=== PATIENT | female | born 1985 | race Caucasian/White ===

== ENCOUNTER 2016-07-23 03:35 | Emergency (ER) | payer MEDICARE, OTHER ==
[~2016-07-23] VITALS: Ht 162.6 cm; Wt 63.5 kg
[~2016-07-23 03:35] MED LIST: ACYC800T PO; ARIP10TA2 PO; CITA10TA70 PO; CLON1TAB36 PO; CONCERTA; HYDR50TA76 PO; LITH300C PO; LITH300T15 PO; NITR-65 PO; PRD20T PO
[2016-07-23] MEDS ORDERED: ASPIRIN 81 MG CHEW (CHILDREN'S ASA) PO ONE (03:45)
--- NOTE | 2016-07-23 03:54 | ED General ---
General Chief Complaint: General Problems/Pain Stated Complaint: NUMBNESS Source of Information: Patient, EMS History of Present Illness Time Seen by Provider: 03:37 Initial Comments PT ARRIVES VIA EMS FROM HOME PT STATES SHE WAS SMOKING A CIGARETTE AND INHALED AND CIGARETTE HAD A "WEIRD TASTE" AND SUDDENLY SHE FELT "NUMB AND TINGLY ALL OVER AND EVERYTHING FEELS DISTORTED" AND NOW SHE IS HAVING SOME CHEST DISCOMFORT PT STATES IT WAS A NEW PACK--PT'S USUAL CIGARETTES "DECADE RED 100" , AND DENIES THAT IT WAS LACED WITH ANYTHING DENIES DRUG USE NO SHORTNESS OF BREATH NO PALPITATIONS NO DIZZINESS NO MOTOR DEFICITS NO HISTORY OF SIMILAR, BUT HAS EXTENSIVE PSYCH ISSUES--TAKES LATUDA, ZYPREXA AND TRAZODONE. DENIES MISSING DOSES OR TAKING MORE THAN PRESCRIBED PCP: DR. WYNN AT [facility]. "JUST MOVED HERE FROM [place]" --BUT HAS BEEN HERE 8 TIMES SINCE 2010. Allergies and Home Medications Allergies Coded Allergies: Buspirone (Verified Allergy, Severe, HIVES, 09/07/13) risperidone (Verified Allergy, Intermediate, RASH, 09/07/13) Erythromycin Base (Verified Allergy, Unknown, 09/07/13) Home Medications Citalopram Hydrobromide 10 Mg Tablet, 1 EACH PO DAILY, (Reported) Hydroxyzine Hcl 50 Mg Tablet, 1-2 EACH PO QID PRN, (Reported) [place] Carbonate 300 Mg Tablet.sa, 2 EACH PO BID, (Reported) Nitrofurantoin/Nitrofuran Mac 100 Mg Capsule, 1 EACH PO BID, #20 FOR INFECTION Prescribed by: IWLY BARRIENTOS on 10/10/13 0701 Constitutional: see HPI EENTM: no symptoms reported Respiratory: no symptoms reported Cardiovascular: see HPI, chest pain Gastrointestinal: no symptoms reported Genitourinary: no symptoms reported : No LMP: Jul 15, 2016 (NO CONTROL) Musculoskeletal: no symptoms reported Skin: no symptoms reported Psychiatric/Neurological: See HPI, Anxiety, Denies Headache, Numbness, Paresthesia, Tingling, Denies Weakness Hematologic/Lymphatic: No Symptoms Reported Immunological/Allergic: no symptoms reported Past Relgkpy-Mlrxny-Zbcolz Hx Patient Social History Alcohol Use: Occasionally Uses Recreational Drug Use: Yes (THC IN PAST) Smoking Status: Current Everyday Smoker (1 PPD) Type Used: Cigarettes Recent Hopitalizations: No Seasonal Allergies Seasonal Allergies: No Surgeries HX Surgeries: Yes (R HAND SURG; X 1 ) Surgeries: Appendectomy, Section, Orthopedic, Tonsillectomy Respiratory Hx Respiratory Disorders: No Cardiovascular Hx Cardiac Disorders: No Neurological Hx Neurological Disorders: No Reproductive System Hx Reproductive Disorders: No Sexually Transmitted Disease: No Female Reproductive Disorders: Denies, Ovarian Cyst Genitourinary Hx Genitourinary Disorders: No Gastrointestinal Hx Gastrointestinal Disorders: No Musculoskeletal Hx Musculoskeletal Disorders: No Endocrine Hx Endocrine Disorders: No HEENT HX ENT Disorders: No Cancer Hx Cancer: No Psychosocial Hx Psychiatric Problems: Yes Behavioral Health Disorders: ADD/ADHD, Sleep Difficulties, Anxiety, Suicide Attempts, Bipolar, Schizophrenia, Depression Integumentary HX Skin/Integumentary Disorder: No Blood Transfusions Hx Blood Disorders: No Physical Exam Vital Signs Vital Sign - Last 12Hours 07/23/16 03:35 Temp 96.2 Pulse 97 Resp 18 B/P (MAP) 157/104 Pulse Ox 99 O2 Delivery Room Air Capillary Refill : General Appearance: No Apparent Distress, WD/WN, Obese, Other (REEKS OF CIGARETTES) Neck: Full Range of Motion, Normal Inspection, Non Tender, Supple, No Carotid Bruit, No JVD Respiratory: Chest Non Tender, Normal Breath Sounds, No Accessory Muscle Use, No Respiratory Distress Cardiovascular: Regular Rate, Rhythm, No Edema, No JVD, No Murmur, Normal Peripheral Pulses Gastrointestinal: Normal Bowel Sounds, No Organomegaly, No Pulsatile Mass, Non Tender, Soft Back: Normal Inspection, No CVA Tenderness, No Vertebral Tenderness Extremity: Normal Capillary Refill, Normal Inspection, Normal Range of Motion, Non Tender, No Calf Tenderness, No Pedal Edema Neurologic/Psychiatric: Alert, Oriented x3, No Motor/Sensory Deficits, license issuer II- XII Norm as Tested, Other (ANXIOUS) Skin: Normal Color, Warm/Dry, Tattoos/Piercings (TATTOOS) Progress/Results/Core Measures Results/Orders Lab Results Laboratory Tests Test 07/23/16 04:10 07/23/16 04:15 Range/Units White Blood Count 12.8 H 4.3-11.0 10^3/uL Red Blood Count 5.02 4.35-5.85 10^6/uL Hemoglobin 15.0 11.5-16.0 G/DL Hematocrit 44 35-52 % Mean Corpuscular Volume 88 80-99 FL Mean Corpuscular Hemoglobin 30 25-34 PG Mean Corpuscular Hemoglobin Concent 34 32-36 G/DL Red Cell Distribution Width 14.5 10.0-14.5 % Platelet Count 348 130-400 10^3/uL Mean Platelet Volume 10.3 7.4-10.4 FL Neutrophils (%) (Auto) 61 42-75 % Lymphocytes (%) (Auto) 28 12-44 % Monocytes (%) (Auto) 6 0-12 % Eosinophils (%) (Auto) 4 0-10 % Basophils (%) (Auto) 0 0-10 % Neutrophils # (Auto) 7.8 1.8-7.8 X 10^3 Lymphocytes # (Auto) 3.6 1.0-4.0 X 10^3 Monocytes # (Auto) 0.8 0.0-1.0 X 10^3 Eosinophils # (Auto) 0.5 H 0.0-0.3 10^3/uL Basophils # (Auto) 0.0 0.0-0.1 10^3/uL Prothrombin Time 11.9 L 12.2-14.7 SEC INR Comment 0.9 0.8-1.4 Activated Partial Thromboplast Time 24 24-35 SEC Sodium Level 140 135-145 MMOL/L Potassium Level 4.1 3.6-5.0 MMOL/L Chloride Level 107 98-107 MMOL/L Carbon Dioxide Level 21 21-32 MMOL/L Anion Gap 12 5-14 MMOL/L Blood Urea Nitrogen 15 7-18 MG/DL Creatinine 0.69 0.60-1.30 MG/DL Estimat Glomerular Filtration Rate > 60 BUN/Creatinine Ratio 22 Glucose Level 124 H 70-105 MG/DL Calcium Level 8.8 8.5-10.1 MG/DL Total Bilirubin 0.2 0.1-1.0 MG/DL Aspartate Amino Transf (AST/SGOT) 17 5-34 U/L Alanine Aminotransferase (ALT/SGPT) 22 0-55 U/L Alkaline Phosphatase 94 40-136 U/L Total Creatine Kinase 116 29-168 U/L Creatine Kinase MB 1.6 <6.6 NG/ML Troponin I < 0.30 <0.30 NG/ML B-Type Natriuretic Peptide 16.2 <100.0 PG/ML Total Protein 6.8 6.4-8.2 G/DL Albumin 4.0 3.2-4.5 G/DL Amylase Level 42 25-125 U/L Lipase 22 8-78 U/L Serum Alcohol < 10 <10 MG/DL Serum Test, Qualitative NEGATIVE NEGATIVE Urine Opiates Screen NEGATIVE NEGATIVE Urine Oxycodone Screen NEGATIVE NEGATIVE Urine Methadone Screen NEGATIVE NEGATIVE Urine Propoxyphene Screen NEGATIVE NEGATIVE Urine Barbiturates Screen NEGATIVE NEGATIVE Ur Tricyclic Antidepressants Screen NEGATIVE NEGATIVE Urine Phencyclidine Screen NEGATIVE NEGATIVE Urine Amphetamines Screen NEGATIVE NEGATIVE Urine Methamphetamines Screen NEGATIVE NEGATIVE Urine Benzodiazepines Screen NEGATIVE NEGATIVE Urine Cocaine Screen NEGATIVE NEGATIVE Urine Cannabinoids Screen NEGATIVE NEGATIVE My Orders Orders - ILIANAWILY Kamala DO Amylase (07/23/16 03:45) Cbc With Automated Diff (07/23/16 03:45) Comprehensive Metabolic Panel (07/23/16 03:45) Creatine Kinase (07/23/16 03:45) Creatine Kinase Mb (07/23/16 03:45) Lipase (07/23/16 03:45) Partial Thromboplastin Time (07/23/16 03:45) Protime With Inr (07/23/16 03:45) Troponin I (07/23/16 03:45) Chest 1 View, Ap/Pa Only (07/23/16 03:45) Ekg Tracing (07/23/16 03:45) Aspirin Chewable Tablet (Baby Aspirin Ch (07/23/16 03:45) BNP (07/23/16 03:45) Monitor-Rhythm Ecg Trace Only (07/23/16 03:45) Alcohol (07/23/16 03:45) Drug Screen Stat (Urine) (07/23/16 03:45) Hcg,Qualitative Serum (07/23/16 03:45) Medications Given in ED Current Medications Medications Dose Ordered Sig/Emeka Route Start Time Stop Time Status Last Admin Dose Admin Aspirin 324 mg ONCE ONCE PO 07/23/16 03:45 07/23/16 03:48 DC 07/23/16 04:38 324 MG Vital Signs/I&O Vital Sign - Last 12Hours 07/23/16 03:35 Temp 96.2 Pulse 97 Resp 18 B/P (MAP) 157/104 Pulse Ox 99 O2 Delivery Room Air Progress Note : Progress Note UNEVENTFUL ER STAY ECG Initial ECG Impression Time: 03:59 Initial ECG Rate: 83 Initial ECG Rhythm: Normal Sinus Initial ECG Comparisson: Unchanged Diagnostic Imaging Comments CXR--NO ACUTE PROCESS, PENDING RADIOLOGIST REVIEW Reviewed: Reviewed by Me Departure Impression Impression: Primary Impression: GENERALIZED PARESTHESIAS Disposition: HOME, SELF-CARE Condition: Improved Departure-Patient Inst. Referrals: [facility] [place] Patient Instructions: Paresthesias (DC) Add. Discharge Instructions: AVOID CIGARETTES LOTS OF CLEAR LIQUIDS FOLLOW UP WITH [facility] TOMORROW IF SYMPTOMS PERSIST All discharge instructions reviewed with patient and/or family. Voiced understanding. WILY BARRIENTOS DO Jul 23, 2016 03:54
[2016-07-23 04:23] LABS: BASOPHILS % (AUTO) 0 % (0-10); EOSINOPHILS # (AUTO) 0.5 10^3/uL (0.0-0.3); EOSINOPHILS % (AUTO) 4 % (0-10); LYMPHOCYTES # (AUTO) 3.6 X 10^3 (1.0-4.0); LYMPHOCYTES % (AUTO) 28 % (12-44); MEAN CORPUSCULAR HEMOGLOBIN 30 PG (25-34); MEAN CORPUSCULAR HGB CONC 34 G/DL (32-36); MEAN CORPUSCULAR VOLUME 88 FL (80-99); MEAN PLATELET VOLUME 10.3 FL (7.4-10.4); MONOCYTES # (AUTO) 0.8 X 10^3 (0.0-1.0); MONOCYTES % (AUTO) 6 % (0-12); NEUTROPHILS # (AUTO) 7.8 X 10^3 (1.8-7.8); NEUTROPHILS % (AUTO) 61 % (42-75); PLATELET COUNT 348 10^3/uL (130-400); RED BLOOD COUNT 5.02 10^6/uL (4.35-5.85); RED CELL DISTRIBUTION WIDTH 14.5 % (10.0-14.5); WHITE BLOOD COUNT 12.8 10^3/uL (4.3-11.0)
[2016-07-23 04:33] LABS: INR 0.9 (0.8-1.4); PROTHROMBIN TIME PATIENT 11.9 SEC (12.2-14.7)
[2016-07-23 04:44] LABS: ALANINE AMINOTRANSFERASE 22 U/L (0-55); AMYLASE 42 U/L (25-125); ANION GAP 12 MMOL/L (5-14); ASPARTATE AMINO TRANSFERASE 17 U/L (5-34); BILIRUBIN,TOTAL 0.2 MG/DL (0.1-1.0); BLOOD UREA NITROGEN 15 MG/DL (7-18); BUN/CREATININE RATIO 22; CALCIUM 8.8 MG/DL (8.5-10.1); CARBON DIOXIDE 21 MMOL/L (21-32); CHLORIDE 107 MMOL/L (98-107); CREATINE KINASE 116 U/L (29-168); CREATININE SERUM 0.69 MG/DL (0.60-1.30); GFR ESTIMATED > 60; GLUCOSE 124 MG/DL (70-105); LIPASE 22 U/L (8-78); POTASSIUM 4.1 MMOL/L (3.6-5.0); SODIUM 140 MMOL/L (135-145); TOTAL PROTEIN 6.8 G/DL (6.4-8.2)
[2016-07-23 04:51] LABS: TROPONIN I < 0.30 NG/ML (<0.30)
[2016-07-23 04:52] LABS: ALCOHOL < 10 MG/DL (<10)
[2016-07-23 05:09] VITALS: BP 118/65
--- NOTE | 2016-07-23 08:19 | Diagnostic Imaging Report ---
INDICATION: Patient began to feel numb and tingly all over while smoking a cigarette. Everything appeared distorted. FINDINGS: Frontal view of the chest demonstrates the lungs to be clear. The heart, mediastinum, pulmonary vascularity are normal. IMPRESSION: Normal chest. Dictated by: Dictated on workstation # [id number]
--- OUTSIDE RECORDS SUMMARY | 2016-07-26 06:18 | XMS REPORT | Continuity of Care Document ---
Author Author [facility] Organization [facility] Address Unknown Phone Unavailable Care Team Providers Care Wage And Hour Investigator Name Role Phone Michael Kumar PCP [phone] Source Comments Some departments are not documenting in the electronic medical record. If you do not see the information that you expected, contact Release of Information in the Health Information Management department at [phone] for further assistance in locating additional records.[facility] Active Allergies and Adverse Reactions Allergen Noted Date Severity Reactions Comments Buspar 10/19/2013 UNKNOWN Intolerance per pt Erythromycin 10/19/2013 RASH Geodon 02/08/2015 High SEIZURES Risperdal 10/19/2013 RASH Current Medications No known medications Active Problems Problem Noted Date Cannabis use disorder, mild, abuse 10/15/2014 Concussion 06/15/2010 Fall 06/15/2010 Resolved Problems Problem Noted Date Resolved Date Unspecified psychosis 10/12/2014 10/15/2014 Delusion (HCC) 10/12/2014 10/15/2014 Social History Tobacco Use Types Packs/Day Years Used Date Current Every Day Smoker Cigarettes 3 Smokeless Tobacco: Never Used Alcohol Use Drinks/Week oz/Week Comments Yes 54 Cans of 32.4 3 times a week beer Last Filed Vital Signs Vital Sign Reading Time Taken Blood Pressure 151/96 03/10/2016 10:09 PM TEMPLATE MAKER Pulse 101 02/08/2015 2:31 AM CDT Temperature 36.3 C (97.3 F) 03/10/2016 10:09 PM TEMPLATE MAKER Respiratory Rate - - Height 1.626 m (5' 4") 03/10/2016 10:09 PM TEMPLATE MAKER Weight 72.8 kg (160 lb 7.9 oz) 03/10/2016 10:09 PM TEMPLATE MAKER Body Mass Index 27.54 03/10/2016 10:09 PM TEMPLATE MAKER Oxygen Saturation 96% 03/10/2016 10:09 PM TEMPLATE MAKER Plan of Care Health Maintenance Due Date Last Done Comments Physical (Comprehensive) 1992 Exam Pertussis Vaccine 1996 Tetanus Vaccine 2002 Cervical Cancer Screening 2006 Influenza Vaccine 01/01/2017 Results from Last 3 Months Not on file
--- OUTSIDE RECORDS SUMMARY | 2016-07-26 06:19 | XMS REPORT | Continuity of Care Document ---
Author Author [facility] Address Unknown Phone Unavailable Allergies Active Description Code Type Severity Reaction Onset Reported/Identified Relationship to Patient Clinical Status Yes benzoyl peroxide topical Drug Allergy 10/14/2010 Yes lithium Drug Allergy 01/27/2011 Medications Problems Date Dx Coded Attending Type Code Diagnosis Diagnosed By 10/14/2010 368.16 Hallucination Visual 10/14/2010 780.99 Loss Of Pleasure From Usual Activities (anhedonia) 10/14/2010 368.16 Hallucination Visual 10/14/2010 780.99 Loss Of Pleasure From Usual Activities (anhedonia) 10/14/2010 368.16 Hallucination Visual 10/14/2010 780.99 Loss Of Pleasure From Usual Activities (anhedonia) 10/14/2010 368.16 Hallucination Visual 10/14/2010 780.99 Loss Of Pleasure From Usual Activities (anhedonia) 10/14/2010 MORROW CASHERO BUILDING SERVICES ENGINEER, GISSELL N 368.16 Hallucination Visual 10/14/2010 MORROW CASHERO BUILDING SERVICES ENGINEER, GISSELL N 780.99 Loss Of Pleasure From Usual Activities (anhedonia) 10/14/2010 NURIA BUILDING SERVICES ENGINEER, POLI A 368.16 Hallucination Visual 10/14/2010 NURIA BUILDING SERVICES ENGINEER, POLI A 780.99 Loss Of Pleasure From Usual Activities ( anhedonia) 10/14/2010 MORROW CASHERO BUILDING SERVICES ENGINEER, GISSELL N 368.16 Hallucination Visual 10/14/2010 MORROW CASHERO BUILDING SERVICES ENGINEER, GISSELL N 780.99 Loss Of Pleasure From Usual Activities (anhedonia) 10/14/2010 MORROW CASHERO BUILDING SERVICES ENGINEER, GISSELL N 368.16 Hallucination Visual 10/14/2010 MORROW CASHERO BUILDING SERVICES ENGINEER, GISSELL N 780.99 Loss Of Pleasure From Usual Activities (anhedonia) 10/14/2010 SHAWN COKER APRN S 368.16 Hallucination Visual 10/14/2010 SHAWN COKER APRN S 780.99 loss of pleasure from usual activities (anhedonia) 10/27/2010 296.64 Mo Bipolar I Mixed W Psychotic Behavior 10/27/2010 314.01 ADHD COMBINED 10/27/2010 626.0 Absence Of Menstruation 10/27/2010 V58.69 Medication High Risk 10/27/2010 296.64 Mo Bipolar I Mixed W Psychotic Behavior 10/27/2010 314.01 ADHD COMBINED 10/27/2010 626.0 Absence Of Menstruation 10/27/2010 V58.69 Medication High Risk 10/27/2010 296.64 Mo Bipolar I Mixed W Psychotic Behavior 10/27/2010 314.01 ADHD COMBINED 10/27/2010 626.0 Absence Of Menstruation 10/27/2010 V58.69 Medication High Risk 10/27/2010 296.64 Mo Bipolar I Mixed W Psychotic Behavior 10/27/2010 314.01 ADHD COMBINED 10/27/2010 626.0 Absence Of Menstruation 10/27/2010 V58.69 Medication High Risk 10/27/2010 GISSELL GARZA APRN N 296.64 Mo Bipolar I Mixed W Psychotic Behavior 10/27/2010 MORROW GISSELL EMANUEL APRN N 314.01 ADHD COMBINED 10/27/2010 MORROW GISSELL EMANUEL APRN N 626.0 Absence Of Menstruation 10/27/2010 MORROW GISSELL EMANUEL APRN N V58.69 Medication High Risk 10/27/2010 NURIA APRN, POLI A 296.64 Mo Bipolar I Mixed W Psychotic Behavior 10/27/2010 NURIA BUILDING SERVICES ENGINEER, POLI A 314.01 ADHD COMBINED 10/27/2010 NURIA BUILDING SERVICES ENGINEER, POLI A 626.0 Absence Of Menstruation 10/27/2010 NURIA AUGUSTO, POLI A V58.69 Medication High Risk 10/27/2010 MORROW GISSELL EMANUEL APRN N 296.64 Mo Bipolar I Mixed W Psychotic Behavior 10/27/2010 MORROW JIM EMANUEL APRNCY N 314.01 ADHD COMBINED 10/27/2010 MORROW JIM EMANUEL APRNCY N 626.0 Absence Of Menstruation 10/27/2010 MORROW JIM EMANUEL APRNCY N V58.69 Medication High Risk 10/27/2010 MORROW GISSELL EMANUEL APRN N 296.64 Mo Bipolar I Mixed W Psychotic Behavior 10/27/2010 MORROW GISSELL EMANUEL APRN N 314.01 ADHD COMBINED 10/27/2010 GISSELL GARZA APRN N 626.0 Absence Of Menstruation 10/27/2010 GISSELL GARZA APRN N V58.69 Medication High Risk 10/27/2010 SHAWN COKER APRN S 296.64 MO BIPOLAR I MIXED W PSYCHOTIC BEHAVIOR 10/27/2010 SHAWN COKER APRN S 314.01 ADHD COMBINED 10/27/2010 SHAWN COKER APRN S 626.0 ABSENCE OF MENSTRUATION 10/27/2010 SHAWN COKER APRN S V58.69 MEDICATION HIGH RISK 11/06/2010 V72.31 PROPERTY FIELD ADJUSTER EXAM, ROUTINE 11/06/2010 V72.31 PROPERTY FIELD ADJUSTER EXAM, ROUTINE 11/06/2010 V72.31 PROPERTY FIELD ADJUSTER EXAM, ROUTINE 11/06/2010 V72.31 PROPERTY FIELD ADJUSTER EXAM, ROUTINE 11/06/2010 GISSELL GARZA APRN N V72.31 PROPERTY FIELD ADJUSTER EXAM, ROUTINE 11/06/2010 POLI QUIÑONES APRN A V72.31 PROPERTY FIELD ADJUSTER EXAM, ROUTINE 11/06/2010 GISSELL GARZA APRN N V72.31 PROPERTY FIELD ADJUSTER EXAM, ROUTINE 11/06/2010 GISSELL GARZA APRN N V72.31 PROPERTY FIELD ADJUSTER EXAM, ROUTINE 11/06/2010 SHAWN COKER APRN S V72.31 PROPERTY FIELD ADJUSTER EXAM, ROUTINE 11/12/2010 300.02 AN GEN ANXIETY 11/12/2010 300.02 AN GEN ANXIETY 11/12/2010 300.02 AN GEN ANXIETY 11/12/2010 300.02 AN GEN ANXIETY 11/12/2010 GISSELL GARZA APRN N 300.02 AN GEN ANXIETY 11/12/2010 POLI QUIÑONES APRN A 300.02 AN GEN ANXIETY 11/12/2010 GISSELL GARZA APRN N 300.02 AN GEN ANXIETY 11/12/2010 GISSELL GARZA APRN N 300.02 AN GEN ANXIETY 11/12/2010 SHAWN COKER APRN S 300.02 AN GEN ANXIETY 12/04/2010 296.80 Mo Bipolar Nos 12/04/2010 300.00 An Anxiety Unspec 12/04/2010 314.9 Unspecified Hyperkinetic Syndrome Of Childhood 12/04/2010 296.80 Mo Bipolar Nos 12/04/2010 300.00 An Anxiety Unspec 12/04/2010 314.9 Unspecified Hyperkinetic Syndrome Of Childhood 12/04/2010 296.80 Mo Bipolar Nos 12/04/2010 300.00 An Anxiety Unspec 12/04/2010 314.9 Unspecified Hyperkinetic Syndrome Of Childhood 12/04/2010 296.80 Mo Bipolar Nos 12/04/2010 300.00 An Anxiety Unspec 12/04/2010 314.9 Unspecified Hyperkinetic Syndrome Of Childhood 12/04/2010 MORROW JOEJIM VILLARREAL APRNCY N 296.80 Mo Bipolar Nos 12/04/2010 MORROW JOEJIM VILLARREAL APRNCY N 300.00 An Anxiety Unspec 12/04/2010 MORROW JOEGISSELL VILLARREAL APRN N 314.9 Unspecified Hyperkinetic Syndrome Of Childhood 12/04/2010 BALDO QUIÑONES APRNIDI A 296.80 Mo Bipolar Nos 12/04/2010 NURIA CASAS POLI A 300.00 An Anxiety Unspec 12/04/2010 BALDO QUIÑONES APRNIDI A 314.9 Unspecified Hyperkinetic Syndrome Of Childhood 12/04/2010 CRISTHIAN DIAZGISSELL VILLARREAL APRN N 296.80 Mo Bipolar Nos 12/04/2010 MORROW JOEGISSELL VILLARREAL APRN N 300.00 An Anxiety Unspec 12/04/2010 CRISTHIAN DIAZGISSELL VILLARREAL APRN N 314.9 Unspecified Hyperkinetic Syndrome Of Childhood 12/04/2010 CRISTHIAN DIAZPHIL CASAS GISSELL N 296.80 Mo Bipolar Nos 12/04/2010 MORROW JOEGISSELL VILLARREAL APRN N 300.00 An Anxiety Unspec 12/04/2010 MORROW JOEJIM VILLARREAL APRNCY N 314.9 Unspecified Hyperkinetic Syndrome Of Childhood 12/04/2010 SHAWN COKER APRN S 296.80 MO BIPOLAR NOS 12/04/2010 SHAWN COKER APRN S 300.00 AN ANXIETY UNSPEC 12/04/2010 JOHN COKER APRNA S 314.9 UNSPECIFIED HYPERKINETIC SYNDROME OF CHILDHOOD 12/12/2010 296.65 MO BIPOLAR I MIXED PART OR UNSPECIFIED REMISSION 12/12/2010 296.65 MO BIPOLAR I MIXED PART OR UNSPECIFIED REMISSION 12/12/2010 296.65 MO BIPOLAR I MIXED PART OR UNSPECIFIED REMISSION 12/12/2010 296.65 MO BIPOLAR I MIXED PART OR UNSPECIFIED REMISSION 12/12/2010 CRISTHIAN EMANUEL APRLon GISSELL N 296.65 MO BIPOLAR I MIXED PART OR UNSPECIFIED REMISSION 12/12/2010 POLI QUIÑONES APRN A 296.65 MO BIPOLAR I MIXED PART OR UNSPECIFIED REMISSION 12/12/2010 CRISTHIAN EMANUEL APRNJIMCY N 296.65 MO BIPOLAR I MIXED PART OR UNSPECIFIED REMISSION 12/12/2010 CRISTHIAN EMANUEL APRLon GISSELL N 296.65 MO BIPOLAR I MIXED PART OR UNSPECIFIED REMISSION 12/12/2010 SHAWN COKER APRN S 296.65 MO BIPOLAR I MIXED PART OR UNSPECIFIED REMISSION 01/02/2011 311 Mo Depress Nos 01/02/2011 311 Mo Depress Nos 01/02/2011 311 Mo Depress Nos 01/02/2011 311 Mo Depress Nos 01/02/2011 CRISTHIAN DIAZPHIL BUILDING SERVICES ENGINEER, GISSELL N 311 Mo Depress Nos 01/02/2011 POLI QUIÑONES APRN A 311 Mo Depress Nos 01/02/2011 CRISTHIAN DIAZPHIL BUILDING SERVICES ENGINEERGISSELL Forrest N 311 Mo Depress Nos 01/02/2011 CRISTHIAN EMANUEL APRLon GISSELL N 311 Mo Depress Nos 01/02/2011 SHAWN COKER APRN S 311 MO DEPRESS NOS 01/22/2011 V25.49 SURVEILLANCE OF OTHER CONTRACEPTIVE METHOD 01/22/2011 V25.49 SURVEILLANCE OF OTHER CONTRACEPTIVE METHOD 01/22/2011 V25.49 SURVEILLANCE OF OTHER CONTRACEPTIVE METHOD 01/22/2011 V25.49 SURVEILLANCE OF OTHER CONTRACEPTIVE METHOD 01/22/2011 MORROW JOEGISSELL VILLARREAL APRN N V25.49 SURVEILLANCE OF OTHER CONTRACEPTIVE METHOD 01/22/2011 POLI QUIÑONES APRN A V25.49 SURVEILLANCE OF OTHER CONTRACEPTIVE METHOD 01/22/2011 CRISTHIAN DIAZPHIL BUILDING SERVICES ENGINEER, GISSELL N V25.49 SURVEILLANCE OF OTHER CONTRACEPTIVE METHOD 01/22/2011 MORROWMAE DIAZPHIL BUILDING SERVICES ENGINEERGISSELL Forrest N V25.49 SURVEILLANCE OF OTHER CONTRACEPTIVE METHOD 01/22/2011 SHAWN COKER APRN S V25.49 SURVEILLANCE OF OTHER CONTRACEPTIVE METHOD 02/02/2011 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 02/02/2011 375.15 TEAR FILM INSUFFICIENCY UNSPECIFIED 02/02/2011 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 02/02/2011 375.15 TEAR FILM INSUFFICIENCY UNSPECIFIED 02/02/2011 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 02/02/2011 375.15 TEAR FILM INSUFFICIENCY UNSPECIFIED 02/02/2011 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 02/02/2011 375.15 TEAR FILM INSUFFICIENCY UNSPECIFIED 02/02/2011 CRISTHIAN DIAZPHIL BUILDING SERVICES ENGINEER, GISSELL N 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 02/02/2011 CRISTHIAN DIAZPHIL BUILDING SERVICES ENGINEERJIM ForrestCY N 375.15 TEAR FILM INSUFFICIENCY UNSPECIFIED 02/02/2011 NURIALon CASAS POLI A 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 02/02/2011 NURIA APRN, POLI A 375.15 TEAR FILM INSUFFICIENCY UNSPECIFIED 02/02/2011 CRISTHIAN DIAZGISSELL VILLARREAL APRN N 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 02/02/2011 MORROW JOEGISSELL VILLARREAL APRN N 375.15 TEAR FILM INSUFFICIENCY UNSPECIFIED 02/02/2011 CRISTHIAN DIAZPHIL BUILDING SERVICES ENGINEERGISSELL Forrest N 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 02/02/2011 CRISTHIAN DIAZPHIL BUILDING SERVICES ENGINEERGISSELL Forrest N 375.15 TEAR FILM INSUFFICIENCY UNSPECIFIED 02/02/2011 SHAWN COKER APRN S 351.0 DOBBINS'S PALSY 02/02/2011 FOREST COKER APRNNDA S 375.15 TEAR FILM INSUFFICIENCY UNSPECIFIED 02/04/2011 296.90 Mood Disorder Nos 02/04/2011 296.90 Mood Disorder Nos 02/04/2011 296.90 Mood Disorder Nos 02/04/2011 296.90 Mood Disorder Nos 02/04/2011 GISSELL GARZA APRN N 296.90 Mood Disorder Nos 02/04/2011 NURIA CASAS POLI A 296.90 Mood Disorder Nos 02/04/2011 CRISTHIAN DIAZJIM VILLARREAL APRNCY N 296.90 Mood Disorder Nos 02/04/2011 CRISTHIAN EMANUEL APRJIM ForrestCY N 296.90 Mood Disorder Nos 02/04/2011 JOHN COKER APRNA S 296.90 MOOD DISORDER NOS 03/13/2011 701.9 UNSPECIFIED HYPERTROPHIC AND ATROPHIC CONDITIONS OF SKIN 03/13/2011 701.9 UNSPECIFIED HYPERTROPHIC AND ATROPHIC CONDITIONS OF SKIN 03/13/2011 701.9 UNSPECIFIED HYPERTROPHIC AND ATROPHIC CONDITIONS OF SKIN 03/13/2011 701.9 UNSPECIFIED HYPERTROPHIC AND ATROPHIC CONDITIONS OF SKIN 03/13/2011 GISSELL GARZA APRN N 701.9 UNSPECIFIED HYPERTROPHIC AND ATROPHIC CONDITIONS OF SKIN 03/13/2011 POLI QUIÑONES APRN A 701.9 UNSPECIFIED HYPERTROPHIC AND ATROPHIC CONDITIONS OF SKIN 03/13/2011 GISSELL GARZA APRN N 701.9 UNSPECIFIED HYPERTROPHIC AND ATROPHIC CONDITIONS OF SKIN 03/13/2011 MORROW JOEGISSELL VILLARREAL APRN N 701.9 UNSPECIFIED HYPERTROPHIC AND ATROPHIC CONDITIONS OF SKIN 03/13/2011 SHAWN COKER APRN S 701.9 UNSPECIFIED HYPERTROPHIC AND ATROPHIC CONDITIONS OF SKIN 05/13/2011 300.4 MO DYSTHYMIC DISORDER 05/13/2011 300.4 MO DYSTHYMIC DISORDER 05/13/2011 300.4 MO DYSTHYMIC DISORDER 05/13/2011 300.4 MO DYSTHYMIC DISORDER 05/13/2011 GISSELL GARZA APRN N 300.4 MO DYSTHYMIC DISORDER 05/13/2011 POLI QUIÑONES APRN A 300.4 MO DYSTHYMIC DISORDER 05/13/2011 GISSELL GARZA APRN N 300.4 MO DYSTHYMIC DISORDER 05/13/2011 GISSELL GARZA APRN N 300.4 MO DYSTHYMIC DISORDER 05/13/2011 SHAWN COKER APRN 300.4 MO DYSTHYMIC DISORDER 06/15/2011 461.9 Sinusitis Acute 06/15/2011 462 Acute Pharyngitis 06/15/2011 461.9 Sinusitis Acute 06/15/2011 462 Acute Pharyngitis 06/15/2011 461.9 Sinusitis Acute 06/15/2011 462 Acute Pharyngitis 06/15/2011 461.9 Sinusitis Acute 06/15/2011 462 Acute Pharyngitis 06/15/2011 GISSELL GARZA APRN N 461.9 Sinusitis Acute 06/15/2011 GISSELL GARZA APRN N 462 Acute Pharyngitis 06/15/2011 POLI QUIÑONES APRN A 461.9 Sinusitis Acute 06/15/2011 POLI QUIÑONES APRN A 462 Acute Pharyngitis 06/15/2011 GISSELL GARZA APRN N 461.9 Sinusitis Acute 06/15/2011 GISSELL GARZA APRN N 462 Acute Pharyngitis 06/15/2011 GISSELL GARZA APRN N 461.9 Sinusitis Acute 06/15/2011 GISSELL GARZA APRN N 462 Acute Pharyngitis 06/15/2011 SHAWN COKER APRN S 461.9 SINUSITIS ACUTE 06/15/2011 SHAWN COKER APRN S 462 ACUTE PHARYNGITIS 06/17/2011 296.33 Mo Depressive Recurrent Severe W/o Psychotic Behavior 06/17/2011 296.33 Mo Depressive Recurrent Severe W/o Psychotic Behavior 06/17/2011 296.33 Mo Depressive Recurrent Severe W/o Psychotic Behavior 06/17/2011 296.33 Mo Depressive Recurrent Severe W/o Psychotic Behavior 06/17/2011 GISSELL GARZA APRN N 296.33 Mo Depressive Recurrent Severe W /o Psychotic Behavior 06/17/2011 POLI QUIÑONES APRN A 296.33 Mo Depressive Recurrent Severe W/o Psychotic Behavior 06/17/2011 GISSELL GARZA APRN N 296.33 Mo Depressive Recurrent Severe W /o Psychotic Behavior 06/17/2011 GISSELL GARZA APRN N 296.33 Mo Depressive Recurrent Severe W /o Psychotic Behavior 06/17/2011 SHAWN COKER APRN S 296.33 MO DEPRESSIVE RECURRENT SEVERE W/O PSYCHOTIC BEHAVIOR 07/16/2011 296.62 Mo Bipolar I Mixed Moderate 07/16/2011 296.62 Mo Bipolar I Mixed Moderate 07/16/2011 296.62 Mo Bipolar I Mixed Moderate 07/16/2011 296.62 Mo Bipolar I Mixed Moderate 07/16/2011 GISSELL GARZA APRN N 296.62 Mo Bipolar I Mixed Moderate 07/16/2011 NURIA CASAS POLI A 296.62 Mo Bipolar I Mixed Moderate 07/16/2011 GISSELL GARZA APRN N 296.62 Mo Bipolar I Mixed Moderate 07/16/2011 GISSELL GARZA APRN N 296.62 Mo Bipolar I Mixed Moderate 07/16/2011 SHAWN COKER APRN S 296.62 MO BIPOLAR I MIXED MODERATE 08/03/2011 780.39 SEIZURES OTHER 08/03/2011 780.39 convulsions [as sx] 08/03/2011 780.39 convulsions [as sx] 08/03/2011 780.39 convulsions [as sx] 08/03/2011 GISSELL GARZA APRN N 780.39 convulsions [as sx] 08/03/2011 NURIA CASAS POLI A 780.39 convulsions [as sx] 08/03/2011 CRISTHIAN EMANUEL APRNGISSELL N 780.39 convulsions [as sx] 08/03/2011 GISSELL GARZA APRN N 780.39 convulsions [as sx] 08/03/2011 SHAWN COKER APRN S 780.39 SEIZURES OTHER 08/12/2011 296.89 Mo Bipolar Ii 08/12/2011 301.83 PD BORDERLINE 08/12/2011 296.89 Mo Bipolar Ii 08/12/2011 301.83 PD BORDERLINE 08/12/2011 296.89 Mo Bipolar Ii 08/12/2011 301.83 PD BORDERLINE 08/12/2011 296.89 Mo Bipolar Ii 08/12/2011 301.83 PD BORDERLINE 08/12/2011 CRISTHIAN EMANUEL APRNGISSELL N 296.89 Mo Bipolar Ii 08/12/2011 CRISTHIAN EMANUEL APRNJIMCY N 301.83 PD BORDERLINE 08/12/2011 BALDO QUIÑONES APRNIDI A 296.89 Mo Bipolar Ii 08/12/2011 BALDO QUIÑONES APRNIDI A 301.83 PD BORDERLINE 08/12/2011 CRISTHIAN EMANUEL APRNGISSELL N 296.89 Mo Bipolar Ii 08/12/2011 CRISTHIAN DIAZPHIL BUILDING SERVICES ENGINEER, GISSELL N 301.83 PD BORDERLINE 08/12/2011 CRISTHIAN EMANUEL APRLon GISSELL N 296.89 Mo Bipolar Ii 08/12/2011 CRISTHIAN DIAZPHIL BUILDING SERVICES ENGINEER, GISSELL N 301.83 PD BORDERLINE 08/12/2011 SHAWN COKER APRN S 296.89 MO BIPOLAR II 08/12/2011 SHAWN COKER APRN S 301.83 PD BORDERLINE 08/25/2011 301.9 PD PERS DIS NOS 08/25/2011 301.9 PD PERS DIS NOS 08/25/2011 301.9 PD PERS DIS NOS 08/25/2011 301.9 PD PERS DIS NOS 08/25/2011 GISSELL GARZA APRN N 301.9 PD PERS DIS NOS 08/25/2011 NURIA CASAS, POLI A 301.9 PD PERS DIS NOS 08/25/2011 CRISTHIAN DIAZPHIL BUILDING SERVICES ENGINEER, GISSELL N 301.9 PD PERS DIS NOS 08/25/2011 JIM GARZA APRNCY N 301.9 PD PERS DIS NOS 08/25/2011 SHAWN COKER APRN 301.9 PD PERS DIS NOS 01/07/2012 V25.01 Contraception - Oral Contraception 01/07/2012 V72.31 Forgesmith Exam, Routine 01/07/2012 V76.10 Breast Cancer Screening 01/07/2012 V25.01 Contraception - Oral Contraception 01/07/2012 V72.31 Forgesmith Exam, Routine 01/07/2012 V76.10 Breast Cancer Screening 01/07/2012 V25.01 Contraception - Oral Contraception 01/07/2012 V72.31 Forgesmith Exam, Routine 01/07/2012 V76.10 Breast Cancer Screening 01/07/2012 V25.01 Contraception - Oral Contraception 01/07/2012 V72.31 Forgesmith Exam, Routine 01/07/2012 V76.10 Breast Cancer Screening 01/07/2012 MORROW JOEGISSELL VILLARREAL APRN N V25.01 Contraception - Oral Contraception 01/07/2012 MORROW JOEGISSELL VILLARREAL APRN N V72.31 Forgesmith Exam, Routine 01/07/2012 CRISTHIAN EMANUEL BUILDING SERVICES ENGINEERGISSELL Forrest N V76.10 Breast Cancer Screening 01/07/2012 NURIAREDD CASAS, POLI A V25.01 Contraception - Oral Contraception 01/07/2012 NURIA APRN, POLI A V72.31 Forgesmith Exam, Routine 01/07/2012 NURIA BUILDING SERVICES ENGINEER, POLI A V76.10 Breast Cancer Screening 01/07/2012 GISSELL GRAZA APRN N V25.01 Contraception - Oral Contraception 01/07/2012 GISSELL GARZA APRN N V72.31 Forgesmith Exam, Routine 01/07/2012 GISSELL GARZA APRN N V76.10 Breast Cancer Screening 01/07/2012 GISSELL GARZA APRN N V25.01 Contraception - Oral Contraception 01/07/2012 GISSELL GARZA APRN N V72.31 Forgesmith Exam, Routine 01/07/2012 GISSELL GARZA APRN N V76.10 Breast Cancer Screening 01/07/2012 SHAWN COKER APRN V25.01 CONTRACEPTION - ORAL CONTRACEPTION 01/07/2012 SHAWN COKER APRN V72.31 PROPERTY FIELD ADJUSTER EXAM, ROUTINE 01/07/2012 SHAWN COKER APRN V76.10 BREAST CANCER SCREENING 01/19/2012 780.60 Fever Unspecified 01/19/2012 780.79 Fatigue 01/19/2012 780.60 Fever Unspecified 01/19/2012 780.79 Fatigue 01/19/2012 780.60 Fever Unspecified 01/19/2012 780.79 Fatigue 01/19/2012 780.60 Fever Unspecified 01/19/2012 780.79 Fatigue 01/19/2012 GISSELL GARZA APRN N 780.60 Fever Unspecified 01/19/2012 MORROW JOEGISSELL VILLARREAL APRN N 780.79 Fatigue 01/19/2012 POLI QUIÑONES APRN A 780.60 Fever Unspecified 01/19/2012 NURIA CASAS POLI A 780.79 Fatigue 01/19/2012 MORROW JOEGISSELL VILLARREAL APRN N 780.60 Fever Unspecified 01/19/2012 MORROW JOEGISSELL VILLARREAL APRN N 780.79 Fatigue 01/19/2012 MORROW JOEGISSELL VILLARREAL APRN N 780.60 Fever Unspecified 01/19/2012 MORROW JOEGISSELL VILLARREAL APRN N 780.79 Fatigue 01/19/2012 SHAWN COKER APRN 780.60 FEVER UNSPECIFIED 01/19/2012 SHAWN COKER APRN 780.79 fatigue 02/12/2012 V03.82 Ppv23 (pneumovax) Dx 02/12/2012 V06.1 Tdap Dx 02/12/2012 V03.82 Ppv23 (pneumovax) Dx 02/12/2012 V06.1 Tdap Dx 02/12/2012 V03.82 Ppv23 (pneumovax) Dx 02/12/2012 V06.1 Tdap Dx 02/12/2012 V03.82 Ppv23 (pneumovax) Dx 02/12/2012 V06.1 Tdap Dx 02/12/2012 GISSELL GARZA APRN N V03.82 Ppv23 (pneumovax) Dx 02/12/2012 CRISTHIAN EMANUEL APRN, GISSELL N V06.1 Tdap Dx 02/12/2012 NURIA CASAS, POLI A V03.82 Ppv23 (pneumovax) Dx 02/12/2012 NURIA CASAS, POLI A V06.1 Tdap Dx 02/12/2012 CRISTHIAN EMANUEL APRN, GISSELL N V03.82 Ppv23 (pneumovax) Dx 02/12/2012 CRISTHIAN EMANUEL APRN, GISSELL N V06.1 Tdap Dx 02/12/2012 CRISTHIAN EMANUEL APRN, GISSELL N V03.82 Ppv23 (pneumovax) Dx 02/12/2012 CRISTHIAN EMANUEL APRN, GISSELL N V06.1 Tdap Dx 02/12/2012 SHEELASERGEI WILLSONJOHN ForrestA S V03.82 PPV23 (PNEUMOVAX) DX 02/12/2012 SHEELA BUILDING SERVICES ENGINEERJOHN ForrestA S V06.1 TDAP DX 02/12/2012 SHEELA BUILDING SERVICES ENGINEERJOHN ForrestA S 626.9 MENSTRUATION AND OTHER ABNORMAL BLEEDING FROM FEMALE GENITAL TRACT 03/17/2012 465.9 Upper Respiratory Infection 03/17/2012 924.10 Contusion Of Lower Leg 03/17/2012 465.9 Upper Respiratory Infection 03/17/2012 924.10 Contusion Of Lower Leg 03/17/2012 465.9 Upper Respiratory Infection 03/17/2012 924.10 Contusion Of Lower Leg 03/17/2012 465.9 Upper Respiratory Infection 03/17/2012 924.10 Contusion Of Lower Leg 03/17/2012 CRISTHIAN EMANUEL APRJIM ForrestCY N 465.9 Upper Respiratory Infection 03/17/2012 MORROWMAE EMANUEL APRLon GISSELL N 924.10 Contusion Of Lower Leg 03/17/2012 BALDO QUIÑONES APRNIDI A 465.9 Upper Respiratory Infection 03/17/2012 POLI QUIÑONES APRN A 924.10 Contusion Of Lower Leg 03/17/2012 CRISTHIAN EMANUEL APRJIM ForrestCY N 465.9 Upper Respiratory Infection 03/17/2012 CRISTHIAN EMANUEL APRJIM ForrestCY N 924.10 Contusion Of Lower Leg 03/17/2012 CRISTHIAN EMANUEL APRJIM ForrestCY N 465.9 Upper Respiratory Infection 03/17/2012 JIM GARZA APRNCY N 924.10 Contusion Of Lower Leg 03/17/2012 SHAWN COKER APRN S 465.9 UPPER RESPIRATORY INFECTION 03/17/2012 SHAWN COKER APRN S 924.10 CONTUSION OF LOWER LEG 03/17/2012 SHAWN COKER APRN S 626.9 MENSTRUATION AND OTHER ABNORMAL BLEEDING FROM FEMALE GENITAL TRACT 04/06/2012 616.10 VAGINITIS AND VULVOVAGINITIS UNSPECIFIED 04/06/2012 616.10 VAGINITIS AND VULVOVAGINITIS UNSPECIFIED 04/06/2012 616.10 VAGINITIS AND VULVOVAGINITIS UNSPECIFIED 04/06/2012 616.10 VAGINITIS AND VULVOVAGINITIS UNSPECIFIED 04/06/2012 GISSELL GARZA APRN N 616.10 VAGINITIS AND VULVOVAGINITIS UNSPECIFIED 04/06/2012 BALDO QUIÑONES APRNIDI A 616.10 VAGINITIS AND VULVOVAGINITIS UNSPECIFIED 04/06/2012 JIM GARZA APRNCY N 616.10 VAGINITIS AND VULVOVAGINITIS UNSPECIFIED 04/06/2012 JIM GARZA APRNCY N 616.10 VAGINITIS AND VULVOVAGINITIS UNSPECIFIED 04/06/2012 626.9 Menstruation And Other Abnormal Bleeding From Female Genital Tract 04/20/2012 461.9 SINUSITIS ACUTE 04/20/2012 786.2 cough 04/20/2012 461.9 SINUSITIS ACUTE 04/20/2012 786.2 cough 04/20/2012 461.9 SINUSITIS ACUTE 04/20/2012 786.2 cough 04/20/2012 JIM GARZA APRNCY N 461.9 SINUSITIS ACUTE 04/20/2012 JIM GARZA APRNCY N 786.2 cough 04/20/2012 BALDO QUIÑONES APRNIDI A 461.9 SINUSITIS ACUTE 04/20/2012 BALDO QUIÑONES APRNIDI A 786.2 cough 04/20/2012 JIM GARZA APRNCY N 461.9 SINUSITIS ACUTE 04/20/2012 JIM GARZA APRNCY N 786.2 cough 04/20/2012 GISSELL GARZA APRN N 461.9 SINUSITIS ACUTE 04/20/2012 GISSELL GARZA APRN N 786.2 cough 04/21/2012 626.9 Menstruation And Other Abnormal Bleeding From Female Genital Tract 11/22/2012 691.8 OTHER ATOPIC DERMATITIS AND RELATED CONDITIONS 11/22/2012 691.8 OTHER ATOPIC DERMATITIS AND RELATED CONDITIONS 11/22/2012 GISSELL GARZA APRN N 691.8 OTHER ATOPIC DERMATITIS AND RELATED CONDITIONS 11/22/2012 POLI QUIÑONES APRN A 691.8 OTHER ATOPIC DERMATITIS AND RELATED CONDITIONS 11/22/2012 GISSELL GARZA APRN N 691.8 OTHER ATOPIC DERMATITIS AND RELATED CONDITIONS 11/22/2012 GISSELL GARZA APRN N 691.8 OTHER ATOPIC DERMATITIS AND RELATED CONDITIONS 11/25/2012 626.9 Menstruation And Other Abnormal Bleeding From Female Genital Tract 12/22/2012 724.5 BACKACHE UNSPECIFIED 12/22/2012 GISSELL GARZA APRN N 724.5 BACKACHE UNSPECIFIED 12/22/2012 POLI QUIÑONES APRN A 724.5 BACKACHE UNSPECIFIED 12/22/2012 GISSELL GARZA APRN N 724.5 BACKACHE UNSPECIFIED 12/22/2012 GISSELL GARZA APRN N 724.5 BACKACHE UNSPECIFIED 12/22/2012 626.9 Menstruation And Other Abnormal Bleeding From Female Genital Tract 01/19/2013 GISSELL GARZA APRN N 719.47 PAIN IN JOINT INVOLVING ANKLE AND FOOT 01/19/2013 POLI QUIÑONES APRN A 719.47 PAIN IN JOINT INVOLVING ANKLE AND FOOT 01/19/2013 GISSELL GARZA APRN N 719.47 PAIN IN JOINT INVOLVING ANKLE AND FOOT 01/19/2013 GISSELL GARZA APRN N 719.47 PAIN IN JOINT INVOLVING ANKLE AND FOOT 01/23/2013 GISSELL GARZA APRN N 626.9 Menstruation And Other Abnormal Bleeding From Female Genital Tract 04/17/2013 POLI QUIÑONES APRN A 278.00 OBESITY 04/17/2013 POLI QUIÑONES APRN A 305.1 NONDEPENDENT TOBACCO USE DISORDER 04/17/2013 POLI QUIÑONES APRN A V25.9 CONTRACEPTION MANAGEMENT 04/17/2013 POLI QUIÑONES APRN A V76.2 CERVICAL CANCER SCREENING (PAP SMEAR) 04/17/2013 GISSELL GARZA APRN N 278.00 OBESITY 04/17/2013 GISSELL GARZA APRN N 305.1 NONDEPENDENT TOBACCO USE DISORDER 04/17/2013 GISSELL GARZA APRN N V25.9 CONTRACEPTION MANAGEMENT 04/17/2013 GISSELL GARZA APRN N V76.2 CERVICAL CANCER SCREENING (PAP SMEAR) 04/17/2013 GISSELL GARZA APRN N 278.00 OBESITY 04/17/2013 GISSELL GARZA APRN N 305.1 NONDEPENDENT TOBACCO USE DISORDER 04/17/2013 GISSELL GARZA APRN N V25.9 CONTRACEPTION MANAGEMENT 04/17/2013 GISSELL GARZA APRN N V76.2 CERVICAL CANCER SCREENING (PAP SMEAR) 04/17/2013 POLI QUIÑONES APRN A 626.9 Menstruation And Other Abnormal Bleeding From Female Genital Tract 08/22/2013 GISSELL GARZA APRN N 626.9 Menstruation And Other Abnormal Bleeding From Female Genital Tract 08/31/2013 GISSELL GARZA APRN N 300.00 ANXIETY STATE UNSPECIFIED 08/31/2013 GISSELL GARZA APRN N 788.41 URINARY FREQUENCY 08/31/2013 GISSELL GARZA APRN N 626.9 Menstruation And Other Abnormal Bleeding From Female Genital Tract Procedures Code Description [place] [id number] XRAY KNEE RIGHT 1 OR 2 VIEWS 03/25/2012 19663 CULTURE UROGENITAL 04/06/2012 47946 XRAY FOOT RIGHT 2 VIEWS 01/23/2013 22531 PAP SMEAR 2012 Q0091 PAP SMEAR OBTAIN SMEAR 04/17/2013 [id number] URINE TEST (IN-HOUSE) 04/17/2013 J1050 DEPO PROVERA 31990 THERAPUTIC INJ SQ/IM 04/17/2013 [id number] THERAPUTIC INJ SQ/IM 08/22/2013 J1030 DEPO MEDROL 40 MG INJ 08/22/2013 32273 UA LONG DIP 08/31 Results Test Result Range Complete blood count (CBC) with automated white blood cell (WBC) differential - 07/23/16 04:10 Blood leukocytes automated count (number/volume) 12.8 10*3/ uL 4.3-11.0 Blood erythrocytes automated count (number/volume) 5.02 10*6 /uL 4.35-5.85 Venous blood hemoglobin measurement (mass/volume) 15.0 g/dL 11.5-16.0 Blood hematocrit (volume fraction) 44 % 35-52 Automated erythrocyte mean corpuscular volume 88 [foz_us] 80-99 Automated erythrocyte mean corpuscular hemoglobin (mass per erythrocyte) 30 pg 25-34 Automated erythrocyte mean corpuscular hemoglobin concentration measurement ( mass/volume) 34 g/dL 32-36 Automated erythrocyte distribution width ratio 14.5 % 10.0-14.5 Automated blood platelet count (count/volume) 348 10*3/uL 130-400 Automated blood platelet mean volume measurement 10.3 [foz_ us] 7.4-10.4 Automated blood neutrophils/100 leukocytes 61 % 42-75 Automated blood lymphocytes/100 leukocytes 28 % 12-44 Blood monocytes/100 leukocytes 6 % 0-12 Automated blood eosinophils/100 leukocytes 4 % 0-10 Automated blood basophils/100 leukocytes 0 % 0-10 Blood neutrophils automated count (number/volume) 7.8 10*3 1.8-7.8 Blood lymphocytes automated count (number/volume) 3.6 10*3 1.0-4.0 Blood monocytes automated count (number/volume) 0.8 10*3 0.0-1.0 Automated eosinophil count 0.5 10*3/uL 0.0-0.3 Automated blood basophil count (count/volume) 0.0 10*3/uL 0.0-0.1 PT panel in platelet poor plasma by coagulation assay - 07/23/16 04:10 Prothrombin time (PT) in platelet poor plasma by coagulation assay 11.9 s 12.2-14.7 INR in platelet poor plasma or blood by coagulation assay 0.9 0.8-1.4 Activated partial thromboplastin time (aPTT) in platelet poor plasma bycoagulation assay - 07/23/16 04:10 Activated partial thromboplastin time (aPTT) in platelet poor plasma bycoagulation assay 24 s 24-35 Comprehensive metabolic panel - 07/23/16 04:10 Serum or plasma sodium measurement (moles/volume) 140 mmol/ L 135-145 Serum or plasma potassium measurement (moles/volume) 4.1 mmol/L 3.6-5.0 Serum or plasma chloride measurement (moles/volume) 107 mmol /L 98-107 Carbon dioxide 21 mmol/L 21-32 Serum or plasma anion gap determination (moles/volume) 12 mmol/L 5-14 Serum or plasma urea nitrogen measurement (mass/volume) 15 mg/dL 7-18 Serum or plasma creatinine measurement (mass/volume) 0.69 mg /dL 0.60-1.30 Serum or plasma urea nitrogen/creatinine mass ratio 22 NRG Serum or plasma creatinine measurement with calculation of estimated glomerular filtration rate > NRG Serum or plasma glucose measurement (mass/volume) 124 mg/dL 70-105 Serum or plasma calcium measurement (mass/volume) 8.8 mg/dL 8.5-10.1 Serum or plasma total bilirubin measurement (mass/volume) 0.2 mg/dL 0.1-1.0 Serum or plasma alkaline phosphatase measurement (enzymatic activity/volume) 94 U/L 40-136 Serum or plasma aspartate aminotransferase measurement (enzymatic activity/ volume) 17 U/L 5-34 Serum or plasma alanine aminotransferase measurement (enzymatic activity/volume ) 22 U/L 0-55 Serum or plasma protein measurement (mass/volume) 6.8 g/dL 6.4-8.2 Serum or plasma albumin measurement (mass/volume) 4.0 g/dL 3.2-4.5 Serum or plasma creatine kinase measurement (enzymatic activity/volume) - 07/23 04:10 Serum or plasma creatine kinase measurement (enzymatic activity/volume) 116 U/L 29-168 Serum or plasma creatine kinase MB measurement (enzymatic activity/volume) - 04:10 Serum or plasma creatine kinase MB measurement (enzymatic activity/volume) 1.6 ng/mL <6.6 Serum or plasma troponin i.cardiac measurement (mass/volume) - 07/23/16 04:10 Serum or plasma troponin i.cardiac measurement (mass/volume) < ng/mL <0.30 Serum or plasma amylase measurement (enzymatic activity/volume) - 07/23/16 04: 10 Serum or plasma amylase measurement (enzymatic activity/volume) 42 U/L 25-125 Lipase - 07/23/16 04:10 Lipase 22 U/L 8-78 Serum or plasma ethanol measurement (mass/volume) - 07/23/16 04:10 Serum or plasma ethanol measurement (mass/volume) < mg/dL <10 Serum or plasma lithium measurement (moles/volume) - 07/23/16 04:10 BNP level 16.2 pg/mL <100.0 Serum or plasma choriogonadotropin ( test) detection - 07/23/16 04:15 Serum or plasma choriogonadotropin ( test) detection NEGATIVE NEGATIVE Urine drug screening test - 07/23/16 04:15 Urine phencyclidine detection by screening method NEGATIVE NEGATIVE Urine benzodiazepines detection by screening method NEGATIVE NEGATIVE Urine cocaine detection NEGATIVE NEGATIVE Urine amphetamines detection by screening method NEGATIVE NEGATIVE Urine methamphetamine detection by screening method NEGATIVE NEGATIVE Urine cannabinoids detection by screening method NEGATIVE NEGATIVE Urine opiates detection by screening method NEGATIVE NEGATIVE Urine barbiturates detection NEGATIVE NEGATIVE Screening urine tricyclic antidepressants detection NEGATIVE NEGATIVE Urine methadone detection by screening method NEGATIVE NEGATIVE Urine oxycodone detection NEGATIVE NEGATIVE Urine propoxyphene detection NEGATIVE NEGATIVE Encounters ACCT No. Visit Date/Time Discharge Status Pt. Type Provider Facility Loc./Unit Complaint [id number] 08/31/2013 08:53:00 08/31/2013 23: 59:59 [facility] Outpatient GISSELL GARZA APRN N [id number] 08/22/2013 07:54:00 08/22/2013 23: 59:59 [facility] Outpatient GISSELL GARZA APRN N [id number] 04/17/2013 13:52:00 04/17/2013 23: 59:59 [facility] Outpatient POLI QUIÑONES APRN [id number] 01/19/2013 10:50:00 01/19/2013 23: 59:59 [facility] Outpatient GISSELL GARZA APRN N [id number] 04/20/2012 13:17:00 04/20/2012 23: 59:59 [facility] Outpatient [id number] 04/06/2012 09:26:00 04/06/2012 23: 59:59 [facility] Outpatient [id number] 02/12/2012 14:47:00 02/12/2012 23: 59:59 [facility] Outpatient SHAWN COKER APRN [id number] 12/22/2012 10:29:00 Document Registration [id number] 11/22/2012 10:16:00 Document Registration
== END 2016-07-23 05:09 | disposition home or self-care (01) ==
LOC: EDUNIT# 03:43 → ER 03:45
DX: R20.2 Paresthesia of skin (principal); R07.89 Other chest pain; F17.210 Nicotine dependence, cigarettes, uncomplicated
CPT/HCPCS: 36415; 71010; 80053; 80306; 80320; 82150; 82550; 82553; 83690; 83880; 84484; 84703; 85025; 85610; 85730; 93005; 93041

== ENCOUNTER 2016-08-17 03:16 | Emergency (ER) | payer SELFPAY ==
[~2016-08-17] VITALS: Ht 162.6 cm; Wt 65.8 kg
--- NOTE | 2016-08-17 03:31 | ED GI ---
General Stated Complaint: ANXIETY History of Present Illness Time Seen By Provider: 03:25 Initial Comments Patient has ER by EMS with complaint of nausea vomiting and diarrhea for the past 4 weeks. She did start a new psych med: Vortioxetine 2-3 weeks prior. She states she had a rash on her chest a few weeks back that resolved, non itchy. She is also had some white plaques on the back of her tongue and sides of her cheek that she feels is probably thrush that she has had thrush before. She denies any recent travel, camping, exposure to sick contacts, travel outside the [place], taking from unsafe water sources. She states she is presently nauseated and would like to be taken to [facility] so she can be put an inpatient psych. Dr Estrada is Psychiatrist and Dr Wynn is PCP at [facility]. Allergies and Home Medications Allergies Coded Allergies: Buspirone (Verified Allergy, Severe, HIVES, 09/07/13) risperidone (Verified Allergy, Intermediate, RASH, 09/07/13) Erythromycin Base (Verified Allergy, Unknown, 09/07/13) Home Medications Lurasidone HCl 80 Mg Tablet, 80 MG PO DAILY, #30 (Reported) Olanzapine 7.5 Mg Tablet, 7.5 MG PO HS, #30 (Reported) Olanzapine 5 Mg Tablet, 5 MG PO DAILY, #30 (Reported) take at 1400 Paliperidone 3 Mg Tab.er.24, 3 MG PO BID, #60 (Reported) take at 1500 and at bedtime Trazodone HCl 50 Mg Tablet, 50 MG PO HS, #30 (Reported) Trihexyphenidyl HCl 2 Mg Tablet, 2 MG PO DAILY, #30 (Reported) take with a meal Vortioxetine Hydrobromide 5 Mg Tablet, 5 MG PO BID, #60 (Reported) take 1 tablet in the morning and 1 tablet at noon Vortioxetine Hydrobromide 10 Mg Tablet, 10 MG PO HS, #30 (Reported) Review of Systems Constitutional: No chills, No diaphoresis, No fever, malaise, No weakness EENTM: No Ear Pain, No Throat Pain Respiratory: Cough (chronic), Denies Shortness of Air, Denies Wheezing Cardiovascular: Denies Chest Pain, Denies Edema Gastrointestinal: See HPI, Denies Constipated, Diarrhea, Denies Difficulty Swallowing, Nausea, Poor Appetite Genitourinary: Denies Burning, Denies Discharge Musculoskeletal: No back pain, No joint pain Skin: see HPI, No pruritus, rash (chest) Psychiatric/Neurological: Anxiety, Depressed, Emotional Problems Past Cjngpwb-Rkzdkj-Ipzizb Hx Patient Social History Alcohol Use: Occasionally Uses Recreational Drug Use: No Smoking Status: Current Everyday Smoker Type Used: Cigarettes Recent Hopitalizations: No Seasonal Allergies Seasonal Allergies: No Surgeries HX Surgeries: Yes (R HAND SURG; X 1 ) Surgeries: Appendectomy, Section, Orthopedic, Tonsillectomy Respiratory Hx Respiratory Disorders: No Cardiovascular Hx Cardiac Disorders: No Neurological Hx Neurological Disorders: No Reproductive System Hx Reproductive Disorders: No Sexually Transmitted Disease: No Female Reproductive Disorders: Denies, Ovarian Cyst Genitourinary Hx Genitourinary Disorders: No Gastrointestinal Hx Gastrointestinal Disorders: No Musculoskeletal Hx Musculoskeletal Disorders: No Endocrine Hx Endocrine Disorders: No HEENT HX ENT Disorders: No Cancer Hx Cancer: No Psychosocial Hx Psychiatric Problems: Yes Behavioral Health Disorders: ADD/ADHD, Sleep Difficulties, Anxiety, Suicide Attempts, Bipolar, Schizophrenia, Depression Integumentary HX Skin/Integumentary Disorder: No Blood Transfusions Hx Blood Disorders: No Physical Exam Vital Signs VS - Last 72 Hours, by Label 08/17/16 03:16 Temp 98.1 Pulse 97 Resp 18 B/P (MAP) 152/103 Pulse Ox 98 O2 Delivery Room Air Capillary Refill : General Appearance: WD/WN, mild distress (unwilling to lie down flat) HEENT: other (tongue with scant white plaque and stringy white plaques on bilateral mucosal membranes) Neck: full range of motion, normal inspection Respiratory: chest non-tender, lungs clear, normal breath sounds, no respiratory distress, no accessory muscle use Cardiovascular: normal peripheral pulses, regular rate, rhythm, no edema, no murmur Peripheral Pulses: 3+ Dorsalis Pedis (R), 3+ Left Dors-Pedis (L) Gastrointestinal: other (patient refuses abdominal exam) Extremities: other (transferred from gurney to floor over to bed under her own power.) Back: normal inspection, no CVA tenderness Neurologic/Psychiatric: alert, oriented x 3, other (mild agitation.) Skin: normal color, warm/dry, No rash Lymphatic: no adenopathy Progress/Results/Core Measures Results/Orders Lab Results Laboratory Tests Test 08/17/16 03:55 08/17/16 04:35 Range/Units White Blood Count 16.5 H 4.3-11.0 10^3/uL Red Blood Count 4.89 4.35-5.85 10^6/uL Hemoglobin 14.6 11.5-16.0 G/DL Hematocrit 43 35-52 % Mean Corpuscular Volume 88 80-99 FL Mean Corpuscular Hemoglobin 30 25-34 PG Mean Corpuscular Hemoglobin Concent 34 32-36 G/DL Red Cell Distribution Width 14.6 H 10.0-14.5 % Platelet Count 374 130-400 10^3/uL Mean Platelet Volume 10.3 7.4-10.4 FL Neutrophils (%) (Auto) 74 42-75 % Lymphocytes (%) (Auto) 17 12-44 % Monocytes (%) (Auto) 6 0-12 % Eosinophils (%) (Auto) 3 0-10 % Basophils (%) (Auto) 0 0-10 % Neutrophils # (Auto) 12.3 H 1.8-7.8 X 10^3 Lymphocytes # (Auto) 2.7 1.0-4.0 X 10^3 Monocytes # (Auto) 1.0 0.0-1.0 X 10^3 Eosinophils # (Auto) 0.5 H 0.0-0.3 10^3/uL Basophils # (Auto) 0.0 0.0-0.1 10^3/uL Neutrophils % (Manual) 72 % Lymphocytes % (Manual) 16 % Monocytes % (Manual) 6 % Eosinophils % (Manual) 3 % Basophils % (Manual) 1 % Band Neutrophils 0 % Reactive Lymphocytes 2 % Anisocytosis SLIGHT Sodium Level 138 135-145 MMOL/L Potassium Level 4.1 3.6-5.0 MMOL/L Chloride Level 106 98-107 MMOL/L Carbon Dioxide Level 22 21-32 MMOL/L Anion Gap 10 5-14 MMOL/L Blood Urea Nitrogen 12 7-18 MG/DL Creatinine 0.67 0.60-1.30 MG/DL Estimat Glomerular Filtration Rate > 60 BUN/Creatinine Ratio 18 Glucose Level 116 H 70-105 MG/DL Calcium Level 8.8 8.5-10.1 MG/DL Total Bilirubin 0.3 0.1-1.0 MG/DL Aspartate Amino Transf (AST/SGOT) 15 5-34 U/L Alanine Aminotransferase (ALT/SGPT) 19 0-55 U/L Alkaline Phosphatase 78 40-136 U/L Total Protein 6.8 6.4-8.2 G/DL Albumin 4.1 3.2-4.5 G/DL Urine Color YELLOW Urine Clarity CLEAR Urine pH 6 5-9 Urine Specific [place] 1.010 L 1.016-1.022 Urine Protein NEGATIVE NEGATIVE Urine Glucose (UA) NEGATIVE NEGATIVE Urine Ketones NEGATIVE NEGATIVE Urine Nitrite NEGATIVE NEGATIVE Urine Bilirubin NEGATIVE NEGATIVE Urine Urobilinogen NORMAL NORMAL MG/DL Urine Leukocyte Esterase NEGATIVE NEGATIVE Urine RBC (Auto) NEGATIVE NEGATIVE Urine RBC NONE /HPF Urine WBC NONE /HPF Urine Squamous Epithelial Cells 2-5 /HPF Urine Crystals NONE /LPF Urine Bacteria TRACE /HPF Urine Casts NONE /LPF Urine Mucus NEGATIVE /LPF Urine Culture Indicated NO Urine Test NEGATIVE NEGATIVE Urine Opiates Screen NEGATIVE NEGATIVE Urine Oxycodone Screen NEGATIVE NEGATIVE Urine Methadone Screen NEGATIVE NEGATIVE Urine Propoxyphene Screen NEGATIVE NEGATIVE Urine Barbiturates Screen NEGATIVE NEGATIVE Ur Tricyclic Antidepressants Screen NEGATIVE NEGATIVE Urine Phencyclidine Screen NEGATIVE NEGATIVE Urine Amphetamines Screen NEGATIVE NEGATIVE Urine Methamphetamines Screen NEGATIVE NEGATIVE Urine Benzodiazepines Screen NEGATIVE NEGATIVE Urine Cocaine Screen NEGATIVE NEGATIVE Urine Cannabinoids Screen NEGATIVE NEGATIVE My Orders Orders - JAYESH BARNETT Cbc With Automated Diff (08/17/16 03:32) Comprehensive Metabolic Panel (08/17/16 03:32) Drug Screen Stat (Urine) (08/17/16 03:32) Hcg,Qualitative Urine (08/17/16 03:32) Ua Culture If Indicated (08/17/16 03:32) Ondansetron Injection (Zofran Injectio (08/17/16 03:45) Saline Lock/Iv-Start (08/17/16 03:56) Manual Differential (08/17/16 03:55) Hiv 1&2 Antibody (08/17/16 04:10) Promethazine Tablet (Phenergan Tablet) (08/17/16 05:15) Medications Given in ED Current Medications Medications Dose Ordered Sig/Emeka Route Start Time Stop Time Status Last Admin Dose Admin Ondansetron HCl 4 mg ONCE ONCE IVP 08/17/16 03:45 08/17/16 03:47 DC 08/17/16 03:57 4 MG Vital Signs/I&O Vital Sign - Last 12Hours 08/17/16 03:16 Temp 98.1 Pulse 97 Resp 18 B/P (MAP) 152/103 Pulse Ox 98 O2 Delivery Room Air Progress Note : Time: 04:16 Progress Note Patient presents by EMS in a very agitated state demanding to be transferred to [facility] so she can be placed in inpatient psych. When asked why she wanted to be put in inpatient psych she stated so she can get her meds straightened out. She admits her symptoms of nausea, vomiting, diarrhea. Date the changes in her psych meds. Patient is limiting physical exam at this time. Her white stringy plaques may indeed be thrush so I would add an HIV to her general labs to look for any medical conditions otherwise. She does have a white count moderate. This could be reactive to chronic nausea vomiting and diarrhea. She has had negative HIV tests in the past year. Nausea and vomiting could also be due to SSRI intoxication. She is much better feeling on the zofran. She still desires to be transferred to [facility] for inpatient psych but has not presented with any reason for ER to ER transfer. Advised her best option would be to talk to her psychiatrist during normal business hours as this is been going on for 4 weeks. Patient acknowledged Departure Impression Impression: Primary Impression: Nausea & vomiting Qualified Codes: R11.2 - Nausea with vomiting, unspecified Additional Impressions: Diarrhea Qualified Codes: R19.7 - Diarrhea, unspecified Thrush, oral Disposition: 01 HOME, SELF-CARE Condition: Improved Departure-Patient Inst. Decision time for Depature: 05:15 Referrals: ANYA WYNN MD (PCP/Family) Primary Care Physician Patient Instructions: Thrush (DC) Add. Discharge Instructions: Your nausea, vomiting and diarrhea may be due to viral gastroenteritis or it may be due to your medicines. You should follow up with your primary care physician to address these medicines outpatient. You have been given Zofran to be taken 1 tablet by mouth every 6 hours if needed for nausea or vomiting. It is also reasonable if you're having watery diarrhea to take a tablet of Imodium every 4 hours until your diarrhea slows. Not to exceed 6 mg in 24 hours. Nystatin swish and spit 5 cc 3 times a day for the next 2 weeks. An HIV test has been performed and you or your primary care physician can follow up on the results in the next 2 days. If you have not heard the results by the middle of the week you should call your primary care physician and have them follow-up on this. If you have any new or worsening symptoms you can return to the ER or to your primary care physician. Plan on making an appointment sometime this week or the following to speak with your psychiatrist and/or primary care physician about medical management of your symptoms. Scripts Nystatin (Nystatin) 100,000 Unit/1 Ml Oral.susp [id number] UNIT PO TIDAC for 14 Days, #200 ML 0 Refills Prov: JAYESH BARNETT 08/17/16 Ondansetron HCl (Zofran) 4 Mg Tab 4 MG PO Q6H, #10 TAB 0 Refills Prov: JAYESH BARNETT 08/17/16 Copy Copies To 1: SHERON HUNTER DO JAYESH BARNETT Aug 17, 2016 03:31
[2016-08-17] MEDS ORDERED: LURA80TA3 PO (03:43)
[2016-08-17] MEDS ORDERED: OLAN5TAB25 PO (03:43)
[2016-08-17] MEDS ORDERED: OLAN7.5T9 PO (03:43)
[2016-08-17] MEDS ORDERED: VORT5TAB PO (03:43)
[2016-08-17] MEDS ORDERED: PALI3TAB2 PO (03:43)
[2016-08-17] MEDS ORDERED: TRIH2TAB2 PO (03:43)
[2016-08-17] MEDS ORDERED: VORT10TA PO (03:43)
[2016-08-17] MEDS ORDERED: TRAZ-28 PO (03:43)
[2016-08-17] MEDS ORDERED: ONDANSETRON 4 MG/2 ML (SDV) Z0FRAN IVP ONE (03:45)
[2016-08-17 04:03] LABS: BASOPHILS % (AUTO) 0 % (0-10); EOSINOPHILS # (AUTO) 0.5 10^3/uL (0.0-0.3); EOSINOPHILS % (AUTO) 3 % (0-10); LYMPHOCYTES # (AUTO) 2.7 X 10^3 (1.0-4.0); LYMPHOCYTES % (AUTO) 17 % (12-44); MEAN CORPUSCULAR HEMOGLOBIN 30 PG (25-34); MEAN CORPUSCULAR HGB CONC 34 G/DL (32-36); MEAN CORPUSCULAR VOLUME 88 FL (80-99); MEAN PLATELET VOLUME 10.3 FL (7.4-10.4); MONOCYTES % (AUTO) 6 % (0-12); NEUTROPHILS # (AUTO) 12.3 X 10^3 (1.8-7.8); NEUTROPHILS % (AUTO) 74 % (42-75); PLATELET COUNT 374 10^3/uL (130-400); RED BLOOD COUNT 4.89 10^6/uL (4.35-5.85); RED CELL DISTRIBUTION WIDTH 14.6 % (10.0-14.5); WHITE BLOOD COUNT 16.5 10^3/uL (4.3-11.0)
[2016-08-17 04:21] LABS: BAND NEUTROPHILS 0 %; BASOPHILS % (MANUAL) 1 %; EOSINOPHILS % (MANUAL) 3 %; LYMPHOCYTES % (MANUAL) 16 %; NEUTROPHILS % (MANUAL) 72 %
[2016-08-17 04:22] LABS: ALANINE AMINOTRANSFERASE 19 U/L (0-55); ALBUMIN 4.1 G/DL (3.2-4.5); ANION GAP 10 MMOL/L (5-14); ANISOCYTOSIS SLIGHT; ASPARTATE AMINO TRANSFERASE 15 U/L (5-34); BILIRUBIN,TOTAL 0.3 MG/DL (0.1-1.0); BLOOD UREA NITROGEN 12 MG/DL (7-18); BUN/CREATININE RATIO 18; CALCIUM 8.8 MG/DL (8.5-10.1); CARBON DIOXIDE 22 MMOL/L (21-32); CHLORIDE 106 MMOL/L (98-107); CREATININE SERUM 0.67 MG/DL (0.60-1.30); GFR ESTIMATED > 60; GLUCOSE 116 MG/DL (70-105); POTASSIUM 4.1 MMOL/L (3.6-5.0); REACTIVE LYMPHOCYTES 2 %; SODIUM 138 MMOL/L (135-145); TOTAL PROTEIN 6.8 G/DL (6.4-8.2)
[2016-08-17 04:47] LABS: BILIRUBIN,URINE NEGATIVE (NEGATIVE); KETONES,URINE NEGATIVE (NEGATIVE); LEUKOCYTE ESTERASE ,URINE NEGATIVE (NEGATIVE); NITRITE,URINE NEGATIVE (NEGATIVE); PH,URINE 6 (5-9); PROTEIN,URINE NEGATIVE (NEGATIVE); UROBILINOGEN,URINE NORMAL (NORMAL)
[2016-08-17] MEDS ORDERED: PROMETHAZINE 25 MG (PHENERGAN) TAB PO ONE (05:15)
[2016-08-17] MEDS ORDERED: NYST1000 PO (05:15)
[2016-08-17] MEDS ORDERED: ONDN4T PO (05:15)
[2016-08-17 05:26] VITALS: BP 125/87
[2016-08-18 08:53] LABS: HIV 1/2 INTERP See Footnote; HIV AG AB SCREEN Non-Reactive (Non-Reactive)
== END 2016-08-17 05:26 | disposition home or self-care (01) ==
LOC: EDUNIT# 03:20 → ER 03:22
DX: R11.2 Nausea with vomiting, unspecified (principal); R19.7 Diarrhea, unspecified; B37.0 Candidal stomatitis; F41.9 Anxiety disorder, unspecified; R21 Rash and other nonspecific skin eruption; F17.210 Nicotine dependence, cigarettes, uncomplicated; Z79.899 Other long term (current) drug therapy
CPT/HCPCS: 36415; 80053; 80306; 81000; 84703; 85007; 85027; 86703; 96374

== ENCOUNTER 2016-10-23 12:49 | Emergency (ER) | payer SELFPAY ==
[~2016-10-23] VITALS: Ht 167.6 cm; Wt 90.7 kg
[~2016-10-23 12:49] MED LIST changes: +LURA80TA3 PO; +NYST1000 PO; +OLAN5TAB25 PO; +OLAN7.5T9 PO; +ONDN4T PO; +PALI3TAB2 PO; +TRAZ-28 PO; +TRIH2TAB2 PO; +VORT10TA PO; +VORT5TAB PO
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
[2016-10-23 13:22] LABS: BASOPHILS % (AUTO) 0 % (0-10); EOSINOPHILS # (AUTO) 0.3 10^3/uL (0.0-0.3); EOSINOPHILS % (AUTO) 2 % (0-10); LYMPHOCYTES % (AUTO) 11 % (12-44); MEAN CORPUSCULAR HEMOGLOBIN 29 PG (25-34); MEAN CORPUSCULAR HGB CONC 33 G/DL (32-36); MEAN CORPUSCULAR VOLUME 89 FL (80-99); MEAN PLATELET VOLUME 10.8 FL (7.4-10.4); MONOCYTES # (AUTO) 0.8 X 10^3 (0.0-1.0); MONOCYTES % (AUTO) 4 % (0-12); NEUTROPHILS # (AUTO) 14.6 X 10^3 (1.8-7.8); NEUTROPHILS % (AUTO) 83 % (42-75); PLATELET COUNT 372 10^3/uL (130-400); RED BLOOD COUNT 5.02 10^6/uL (4.35-5.85); RED CELL DISTRIBUTION WIDTH 13.6 % (10.0-14.5); WHITE BLOOD COUNT 17.7 10^3/uL (4.3-11.0)
[2016-10-23] MEDS ORDERED: NS IV 1000 ML 1,000 ML IV ONE (13:35)
[2016-10-23 13:41] LABS: BAND NEUTROPHILS 0 %; BASOPHILS % (MANUAL) 0 %; EOSINOPHILS % (MANUAL) 2 %; LYMPHOCYTES % (MANUAL) 7 %; NEUTROPHILS % (MANUAL) 87 %
[2016-10-23 13:43] LABS: ALANINE AMINOTRANSFERASE 17 U/L (0-55); ANION GAP 10 MMOL/L (5-14); ASPARTATE AMINO TRANSFERASE 16 U/L (5-34); BILIRUBIN,TOTAL 0.3 MG/DL (0.1-1.0); BLOOD UREA NITROGEN 9 MG/DL (7-18); BUN/CREATININE RATIO 12 (0-20); CALCIUM 8.9 MG/DL (8.5-10.1); CARBON DIOXIDE 19 MMOL/L (21-32); CHLORIDE 111 MMOL/L (98-107); CREATININE SERUM 0.77 MG/DL (0.60-1.30); GFR ESTIMATED > 60; GLUCOSE 147 MG/DL (70-105); HEMOLYSIS 7 (-100-29); ICTERUS 0.2 (-100-1.9); LIPEMIA 0 (-100-49); POTASSIUM 4.4 MMOL/L (3.6-5.0); SALICYLATE < 5.0 MG/DL (5.0-20.0); SODIUM 140 MMOL/L (135-145); TOTAL PROTEIN 7.1 GM/DL (6.4-8.2)
[2016-10-23 13:44] LABS: ACETAMINOPHEN < 10 UG/ML (10-30); ALCOHOL < 10 MG/DL (<10)
--- NOTE | 2016-10-23 13:56 | Diagnostic Imaging Report ---
INDICATION: Paresthesia. Comparison is made to study of 07/23/2016. FINDINGS: Heart size and pulmonary vascularity are within normal limits, and the lungs are clear, bilaterally. IMPRESSION: Unremarkable chest. Dictated by: Dictated on workstation # [id number]
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
--- NOTE | 2016-10-23 14:11 | Diagnostic Imaging Report ---
INDICATION: Right elbow pain. COMPARISON: None available. TECHNIQUE: Two views of the right elbow were performed. FINDINGS: There is an acute, mildly impacted fracture of the radial neck. There may be also intra-articular extension into the radial head. No displaced radial head fracture fragments. The elbow joint space is well-maintained. No discrete elbow joint effusion. IMPRESSION: Acute and mildly impacted fracture of the proximal radial neck. There may also be intra-articular extension into the radial head which does not have significant articular surface depression. Dictated by: Dictated on workstation # [id number]
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
[2016-10-23] MEDS ORDERED: KETOROLAC 30 MG/ML VIAL IVP STA (14:24)
[2016-10-23] MEDS ORDERED: OLANZapine 5 MG ODT (ZyPREXA ZYDIS) PO ONE (16:00)
[2016-10-23 16:50] VITALS: BP 143/93
--- OUTSIDE RECORDS SUMMARY | 2016-10-26 14:52 | XMS REPORT | Continuity of Care Document ---
Author Author [facility] Organization [facility] Address Unknown Phone Unavailable Care Team Providers Care Cane Flume Watchman Name Role Phone Michael Kumar PCP [phone] Source Comments Some departments are not documenting in the electronic medical record. If you do not see the information that you expected, contact Release of Information in the Health Information Management department at [phone] for further assistance in locating additional records.[facility] Active Allergies and Adverse Reactions Allergen Noted [...] Taken Blood Pressure 151/96 03/10/2016 10:09 PM REEL SLITTER Pulse 101 02/08/2015 2:31 AM CDT Temperature 36.3 C (97.3 F) 03/10/2016 10:09 PM REEL SLITTER Respiratory Rate - - Height 1.626 m (5' 4") 03/10/2016 10:09 PM REEL SLITTER Weight 72.8 kg (160 lb 7.9 oz) 03/10/2016 10:09 PM REEL SLITTER Body Mass Index 27.54 03/10/2016 10:09 PM REEL SLITTER Oxygen Saturation 96% 03/10/2016 10:09 PM REEL SLITTER Plan of Care Health Maintenance Due Date Last Done Comments Physical (Comprehensive) 1992 Exam Pertussis Vaccine 1996 Tetanus Vaccine 2002 Cervical Cancer Screening 2006 Influenza Vaccine 01/01/2017 Results from Last 3 Months Not on file
--- OUTSIDE RECORDS SUMMARY | 2016-10-26 14:54 | XMS REPORT | Continuity of Care Document ---
Author Author [facility] Address Unknown Phone Unavailable Allergies Active Description Code Type Severity Reaction Onset Reported/Identified Relationship to Patient Clinical Status Yes benzoyl peroxide topical Drug Allergy 10/14/2010 Yes lithium Drug Allergy 01/27/2011 Yes buspirone [id number] Drug Allergy Severe HIVES 09/07/2013 Yes risperidone [id number] Drug Allergy Moderate RASH 09/07/2013 Yes erythromycin base [id number] Drug Allergy Unknown N/A 09/07/2013 Medications Problems Date Dx Coded Attending Type [...] Of Pleasure From Usual Activities (anhedonia) 10/14/2010 GISSELL GARZA APRN N 368.16 Hallucination Visual 10/14/2010 JIM GARZA APRNCY N 780.99 Loss Of Pleasure From Usual Activities (anhedonia) 10/14/2010 NURIA AUGUSTO, POLI A 368.16 Hallucination Visual 10/14/2010 NURIA GOLF MANAGER, POLI A 780.99 Loss Of Pleasure From Usual Activities ( anhedonia) 10/14/2010 JIM GARZA APRNCY N 368.16 Hallucination Visual 10/14/2010 CRISTHIAN EMANUEL APRN GISSELL N 780.99 Loss Of Pleasure From Usual Activities (anhedonia) 10/14/2010 JIM GARZA APRNCY N 368.16 Hallucination Visual 10/14/2010 JIM GARZA APRNCY N 780.99 Loss Of Pleasure From Usual Activities (anhedonia) 10/14/2010 SHAWN COKER APRN S 368.16 Hallucination Visual 10/14/2010 SHAWN COKER APRN 780.99 loss of pleasure from usual activities [...] Bipolar I Mixed W Psychotic Behavior 10/27/2010 GISSELL GARZA APRN N 314.01 ADHD COMBINED 10/27/2010 GISSELL GARZA APRN N 626.0 Absence Of Menstruation 10/27/2010 GISSELL GARZA APRN N V58.69 Medication High Risk 10/27/2010 NURIA CASAS POLI A 296.64 Mo Bipolar I Mixed W Psychotic Behavior 10/27/2010 NURIA APRN, POLI A 314.01 ADHD COMBINED 10/27/2010 NURIA APRN, POLI A 626.0 Absence Of Menstruation 10/27/2010 NURIA CASAS, POLI A V58.69 Medication High Risk 10/27/2010 JIM GARZA APRNCY N 296.64 Mo Bipolar I Mixed W Psychotic Behavior 10/27/2010 JIM GARZA APRNCY N 314.01 ADHD COMBINED 10/27/2010 GISSELL GARZA APRN N 626.0 Absence Of Menstruation 10/27/2010 CRISTHIAN EMANUEL APRLon GISSELL N V58.69 Medication High Risk 10/27/2010 CRISTHIAN EMANUEL APRLon GISSELL N 296.64 Mo Bipolar I Mixed W Psychotic Behavior 10/27/2010 CRISTHIAN EMANUEL APRLon GISSELL N 314.01 ADHD COMBINED 10/27/2010 CRISTHIAN EMANUEL APRLon GISSELL N 626.0 Absence Of Menstruation 10/27/2010 CRISTHIAN EMANUEL APRLon GISSELL N V58.69 Medication High Risk 10/27/2010 SHAWN COKER APRN S 296.64 MO BIPOLAR I MIXED W PSYCHOTIC BEHAVIOR 10/27/2010 SHAWN COKER APRN S 314.01 ADHD COMBINED 10/27/2010 SHAWN COKER APRN S 626.0 ABSENCE OF MENSTRUATION 10/27/2010 SHAWN COKER APRN S V58.69 MEDICATION HIGH RISK 11/06/2010 V72.31 QUARRYMAN EXAM, ROUTINE 11/06/2010 V72.31 QUARRYMAN EXAM, ROUTINE 11/06/2010 V72.31 QUARRYMAN EXAM, ROUTINE 11/06/2010 V72.31 QUARRYMAN EXAM, ROUTINE 11/06/2010 MORROW JOEGISSELL VILLARREAL APRN N V72.31 QUARRYMAN EXAM, ROUTINE 11/06/2010 POLI QUIÑONES APRN A V72.31 QUARRYMAN EXAM, ROUTINE 11/06/2010 CRISTHIAN JOEGISSELL VILLARREAL APRN N V72.31 QUARRYMAN EXAM, ROUTINE 11/06/2010 CRISTHIAN DIAZGISSELL VILLARREAL APRN N V72.31 QUARRYMAN EXAM, ROUTINE 11/06/2010 SHAWN COKER APRN S V72.31 QUARRYMAN EXAM, ROUTINE 11/12/2010 300.02 AN GEN ANXIETY [...] 314.9 Unspecified Hyperkinetic Syndrome Of Childhood 12/04/2010 GISSELL GARZA APRN N 296.80 Mo Bipolar Nos 12/04/2010 CRISTHIAN JOEGISSELL VILLARREAL APRN N 300.00 An Anxiety Unspec 12/04/2010 GISSELL GARZA APRN N 314.9 Unspecified Hyperkinetic Syndrome Of Childhood 12/04/2010 NURIALon CASAS POLI A 296.80 Mo Bipolar Nos 12/04/2010 NURIA APRN, POLI A 300.00 An Anxiety Unspec 12/04/2010 NURIALon CASAS POLI A 314.9 Unspecified Hyperkinetic Syndrome Of Childhood 12/04/2010 MORROW JOEGISSELL VILLARREAL APRN N 296.80 Mo Bipolar Nos 12/04/2010 MORROW JOEJIM VILLARREAL APRNCY N 300.00 An Anxiety Unspec 12/04/2010 GISSELL GARZA APRN N 314.9 Unspecified Hyperkinetic Syndrome Of Childhood 12/04/2010 MORROW JOEJIM VILLARREAL APRNCY N 296.80 Mo Bipolar Nos 12/04/2010 MORROW JOEJIM VILLARREAL APRNCY N 300.00 An Anxiety Unspec 12/04/2010 JIM GARZA APRNCY N 314.9 Unspecified Hyperkinetic Syndrome Of Childhood 12/04/2010 SHAWN COKER APRN S 296.80 MO BIPOLAR NOS 12/04/2010 SHAWN COKER APRN S 300.00 AN ANXIETY UNSPEC 12/04/2010 SHAWN COKER APRN S 314.9 UNSPECIFIED HYPERKINETIC SYNDROME OF CHILDHOOD 12/12/2010 296.65 MO BIPOLAR I MIXED PART OR UNSPECIFIED REMISSION 12/12/2010 296.65 MO BIPOLAR I MIXED PART OR UNSPECIFIED REMISSION 12/12/2010 296.65 MO BIPOLAR I MIXED PART OR UNSPECIFIED REMISSION 12/12/2010 296.65 MO BIPOLAR I MIXED PART OR UNSPECIFIED REMISSION 12/12/2010 MORROW JOEJIM VILLARREAL APRNCY N 296.65 MO BIPOLAR I MIXED PART OR UNSPECIFIED REMISSION 12/12/2010 POLI QUIÑONES APRN A 296.65 MO BIPOLAR I MIXED PART OR UNSPECIFIED REMISSION 12/12/2010 CRISTHIAN DIAZJIM VILLARREAL APRNCY N 296.65 MO BIPOLAR I MIXED PART OR UNSPECIFIED REMISSION 12/12/2010 MORROW JOEJIM VILLARREAL APRNCY N 296.65 MO BIPOLAR I MIXED PART OR UNSPECIFIED REMISSION 12/12/2010 SHAWN COKER APRN S 296.65 MO BIPOLAR I MIXED PART OR UNSPECIFIED REMISSION 01/02/2011 311 Mo Depress Nos 01/02/2011 311 Mo Depress Nos 01/02/2011 311 Mo Depress Nos 01/02/2011 311 Mo Depress Nos 01/02/2011 MORROW JOEJIM VILLARREAL APRNCY N 311 Mo Depress Nos 01/02/2011 BALDO QUIÑONES APRNIDI A 311 Mo Depress Nos 01/02/2011 MORROW JOEJIM VILLARREAL APRNCY N 311 Mo Depress Nos 01/02/2011 MORROW JOEJIM VILLARREAL APRNCY N 311 Mo Depress Nos 01/02/2011 SHAWN COKER APRN S 311 MO DEPRESS NOS 01/22/2011 V25.49 SURVEILLANCE OF OTHER CONTRACEPTIVE METHOD 01/22/2011 V25.49 SURVEILLANCE OF OTHER CONTRACEPTIVE METHOD 01/22/2011 V25.49 SURVEILLANCE OF OTHER CONTRACEPTIVE METHOD 01/22/2011 V25.49 SURVEILLANCE OF OTHER CONTRACEPTIVE METHOD 01/22/2011 GISSELL GARZA APRN N V25.49 SURVEILLANCE OF OTHER CONTRACEPTIVE METHOD 01/22/2011 POLI QUIÑONES APRN A V25.49 SURVEILLANCE OF OTHER CONTRACEPTIVE METHOD 01/22/2011 GISSELL GARZA APRN N V25.49 SURVEILLANCE OF OTHER CONTRACEPTIVE METHOD 01/22/2011 GISSELL GARZA APRN N V25.49 SURVEILLANCE OF OTHER CONTRACEPTIVE METHOD 01/22/2011 SHAWN COKER APRN S V25.49 SURVEILLANCE OF OTHER CONTRACEPTIVE METHOD 02/02/2011 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 02/02/2011 375.15 TEAR FILM INSUFFICIENCY UNSPECIFIED 02/02/2011 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 02/02/2011 375.15 TEAR FILM INSUFFICIENCY UNSPECIFIED 02/02/2011 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 02/02/2011 375.15 TEAR FILM INSUFFICIENCY UNSPECIFIED 02/02/2011 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 02/02/2011 375.15 TEAR FILM INSUFFICIENCY UNSPECIFIED 02/02/2011 MORROW JIM EMANUEL APRNCY N 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 02/02/2011 MORROW CASHERO GOLF MANAGER, GISSELL N 375.15 TEAR FILM INSUFFICIENCY UNSPECIFIED 02/02/2011 BALDO QUIÑONES APRNIDI A 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 02/02/2011 BALDO QUIÑONES APRNIDI A 375.15 TEAR FILM INSUFFICIENCY UNSPECIFIED 02/02/2011 MORROW JIM EMANULE APRNCY N 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 02/02/2011 JIM GARZA APRNCY N 375.15 TEAR FILM INSUFFICIENCY UNSPECIFIED 02/02/2011 MORROW JIM EMANUEL APRNCY N 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 02/02/2011 MORROW CASHERO GOLF MANAGER, GISSELL N 375.15 TEAR FILM INSUFFICIENCY UNSPECIFIED 02/02/2011 SHAWN COKER APRN S 351.0 DOBBINS'S PALSY 02/02/2011 SHAWN COKER APRN S 375.15 TEAR FILM INSUFFICIENCY UNSPECIFIED 02/04/2011 296.90 Mood Disorder Nos 02/04/2011 296.90 Mood Disorder Nos 02/04/2011 296.90 Mood Disorder Nos 02/04/2011 296.90 Mood Disorder Nos 02/04/2011 MORROW ADELFO CASAS GISSELL N 296.90 Mood Disorder Nos 02/04/2011 BALDO QUIÑONES APRNIDI A 296.90 Mood Disorder Nos 02/04/2011 MORROW CASHJIM VILLARREAL APRNCY N 296.90 Mood Disorder Nos 02/04/2011 MORROW CASHERO GOLF MANAGER, GISSELL N 296.90 Mood Disorder Nos 02/04/2011 SHAWN COKER APRN S 296.90 MOOD DISORDER NOS 03/13/2011 701.9 [...] HYPERTROPHIC AND ATROPHIC CONDITIONS OF SKIN 03/13/2011 MORROWGISSELL BEDOYA APRN N 701.9 UNSPECIFIED HYPERTROPHIC AND ATROPHIC CONDITIONS OF SKIN 03/13/2011 SHAWN COKER APRN 701.9 UNSPECIFIED HYPERTROPHIC AND ATROPHIC CONDITIONS OF [...] GARZA APRN N 462 Acute Pharyngitis 06/15/2011 NURIA GOLF MANAGER, POLI A 461.9 Sinusitis Acute 06/15/2011 NURIABALDO Forrest APRNIDI A 462 Acute Pharyngitis 06/15/2011 GISSELL GARZA APRN N 461.9 Sinusitis Acute 06/15/2011 MORROW JOEPHIL GOLF MANAGERJIM ForrestCY N 462 Acute Pharyngitis 06/15/2011 MORROW JOEGISSELL VILLARREAL APRN N 461.9 Sinusitis Acute 06/15/2011 MORROW JOEPHIL GOLF MANAGERGISSELL Forrest N 462 Acute Pharyngitis 06/15/2011 FOREST COKER APRNNDA S 461.9 SINUSITIS ACUTE 06/15/2011 FOREST COKER APRNNDA S 462 ACUTE PHARYNGITIS 06/17/2011 296.33 Mo [...] Recurrent Severe W /o Psychotic Behavior 06/17/2011 CRISTHIAN JOEGISSELL VILLARREAL APRN N 296.33 Mo Depressive Recurrent Severe [...] 296.62 Mo Bipolar I Mixed Moderate 07/16/2011 POLI QUIÑONES APRN A 296.62 Mo Bipolar I Mixed Moderate 07/16/2011 GISSELL GARZA APRN N 296.62 Mo Bipolar I Mixed Moderate 07/16/2011 GISSELL GARZA APRN N 296.62 Mo Bipolar I Mixed Moderate 07/16/2011 JOHN COKER APRNA S 296.62 MO BIPOLAR I MIXED MODERATE 08/03/2011 780.39 SEIZURES OTHER 08/03/2011 780.39 convulsions [as sx] 08/03/2011 780.39 convulsions [as sx] 08/03/2011 780.39 convulsions [as sx] 08/03/2011 CRISTHIAN EMANUEL APRN GISSELL N 780.39 convulsions [as sx] 08/03/2011 NURIAREDD CASAS, POLI A 780.39 convulsions [as sx] 08/03/2011 MORROW JOEPHIL CASAS GISSELL N 780.39 convulsions [as sx] 08/03/2011 MORROW JOEPHIL GOLF MANAGER, GISSELL N 780.39 convulsions [as sx] 08/03/2011 SHAWN COKER APRN S 780.39 SEIZURES OTHER 08/12/2011 296.89 Mo Bipolar Ii 08/12/2011 301.83 PD BORDERLINE 08/12/2011 296.89 Mo Bipolar Ii 08/12/2011 301.83 PD BORDERLINE 08/12/2011 296.89 Mo Bipolar Ii 08/12/2011 301.83 PD BORDERLINE 08/12/2011 296.89 Mo Bipolar Ii 08/12/2011 301.83 PD BORDERLINE 08/12/2011 CRISTHIAN EMANUEL APRN GISSELL N 296.89 Mo Bipolar Ii 08/12/2011 MORROW JOEPHIL CASAS GISSELL N 301.83 PD BORDERLINE 08/12/2011 NURIAREDD CASAS POLI A 296.89 Mo Bipolar Ii 08/12/2011 NURIA CASAS POLI A 301.83 PD BORDERLINE 08/12/2011 MORROW JOEPHIL CASAS GISSELL N 296.89 Mo Bipolar Ii 08/12/2011 MORROW JOEPHIL CASAS GISSELL N 301.83 PD BORDERLINE 08/12/2011 CRISTHIAN JOEPHIL CASAS GISSELL N 296.89 Mo Bipolar Ii 08/12/2011 MORROW JOEJIM VILLARREAL APRNCY N 301.83 PD BORDERLINE 08/12/2011 JOHN COKER APRNA S 296.89 MO BIPOLAR II 08/12/2011 SHAWN COKER APRN S 301.83 PD BORDERLINE 08/25/2011 301.9 PD PERS DIS NOS 08/25/2011 301.9 PD PERS DIS NOS 08/25/2011 301.9 PD PERS DIS NOS 08/25/2011 301.9 PD PERS DIS NOS 08/25/2011 GISSELL GARZA APRN N 301.9 PD PERS DIS NOS 08/25/2011 POLI QUIÑONES APRN A 301.9 PD PERS DIS NOS 08/25/2011 GISSELL GARZA APRN N 301.9 PD PERS DIS NOS 08/25/2011 GISSELL GARZA APRN N 301.9 PD PERS DIS NOS 08/25/2011 SHEELASERGEI WILLSONNFORESTSHAWN S 301.9 PD PERS DIS NOS 01/07/2012 V25.01 Contraception - Oral Contraception 01/07/2012 V72.31 Manpower Development Specialist Manager Exam, Routine 01/07/2012 V76.10 Breast Cancer Screening 01/07/2012 V25.01 Contraception - Oral Contraception 01/07/2012 V72.31 Manpower Development Specialist Manager Exam, Routine 01/07/2012 V76.10 Breast Cancer Screening 01/07/2012 V25.01 Contraception - Oral Contraception 01/07/2012 V72.31 Manpower Development Specialist Manager Exam, Routine 01/07/2012 V76.10 Breast Cancer Screening 01/07/2012 V25.01 Contraception - Oral Contraception 01/07/2012 V72.31 Manpower Development Specialist Manager Exam, Routine 01/07/2012 V76.10 Breast Cancer Screening 01/07/2012 GISSELL GARZA APRN V25.01 Contraception - Oral Contraception 01/07/2012 GISSELL GARZA APRN N V72.31 Manpower Development Specialist Manager Exam, Routine 01/07/2012 GISSELL GARZA APRN N V76.10 Breast Cancer Screening 01/07/2012 POLI QUIÑONES APRN A V25.01 Contraception - Oral Contraception 01/07/2012 PLOI QUIÑONES APRN A V72.31 Manpower Development Specialist Manager Exam, Routine 01/07/2012 POLI QUIÑONES APRN A V76.10 Breast Cancer Screening 01/07/2012 GISSELL GARZA APRN V25.01 Contraception - Oral Contraception 01/07/2012 GISSELL GARZA APRN N V72.31 Manpower Development Specialist Manager Exam, Routine 01/07/2012 GISSELL GARZA APRN V76.10 Breast Cancer Screening 01/07/2012 JIM GARZA APRNCY N V25.01 Contraception - Oral Contraception 01/07/2012 CRISTHIAN EMANUEL APRLon GISSELL N V72.31 Manpower Development Specialist Manager Exam, Routine 01/07/2012 JIM GARZA APRNCY N V76.10 Breast Cancer Screening 01/07/2012 JOHN COKER APRNA S V25.01 CONTRACEPTION - ORAL CONTRACEPTION 01/07/2012 JOHN COKER APRNA S V72.31 QUARRYMAN EXAM, ROUTINE 01/07/2012 JOHN COKER APRNA S V76.10 BREAST CANCER SCREENING 01/19/2012 780.60 Fever Unspecified 01/19/2012 780.79 Fatigue 01/19/2012 780.60 Fever Unspecified 01/19/2012 780.79 Fatigue 01/19/2012 780.60 Fever Unspecified 01/19/2012 780.79 Fatigue 01/19/2012 780.60 Fever Unspecified 01/19/2012 780.79 Fatigue 01/19/2012 CRISTHIAN EMANUEL APRLon GISSELL N 780.60 Fever Unspecified 01/19/2012 CRISTHIAN EMANUEL APRN GISSELL N 780.79 Fatigue 01/19/2012 NURIAREDD CASAS, POLI A 780.60 Fever Unspecified 01/19/2012 NURIA CASAS POLI A 780.79 Fatigue 01/19/2012 CRISTHIAN EMANUEL APRN GISSELL N 780.60 Fever Unspecified 01/19/2012 CRISTHIAN DIAZPHIL GOLF MANAGER, GISSELL N 780.79 Fatigue 01/19/2012 CRISTHIAN DIAZPHIL GOLF MANAGER, GISSELL N 780.60 Fever Unspecified 01/19/2012 CRISTHIAN EMANUEL APRLon GISSELL N 780.79 Fatigue 01/19/2012 JOHN COKER APRNA S 780.60 FEVER UNSPECIFIED 01/19/2012 JOHN COKER APRNA S 780.79 fatigue 02/12/2012 V03.82 Ppv23 (pneumovax) Dx 02/12/2012 V06.1 Tdap Dx 02/12/2012 V03.82 Ppv23 (pneumovax) Dx 02/12/2012 V06.1 Tdap Dx 02/12/2012 V03.82 Ppv23 (pneumovax) Dx 02/12/2012 V06.1 Tdap Dx 02/12/2012 V03.82 Ppv23 (pneumovax) Dx 02/12/2012 V06.1 Tdap Dx 02/12/2012 JIM GARZA APRNCY N V03.82 Ppv23 (pneumovax) Dx 02/12/2012 JIM GARZA APRNCY N V06.1 Tdap Dx 02/12/2012 NURIA CASASBALDOPOLI A V03.82 Ppv23 (pneumovax) Dx 02/12/2012 NURIA WILLSONBALDO ForrestIDI A V06.1 Tdap Dx 02/12/2012 CRISTHIAN EMANUEL APRN GISSELL N V03.82 Ppv23 (pneumovax) Dx 02/12/2012 CRISTHIAN EMANUEL APRN GISSELL N V06.1 Tdap Dx 02/12/2012 CRISTHIAN EMANUEL APRN GISSELL N V03.82 Ppv23 (pneumovax) Dx 02/12/2012 CRISTHIAN EMANUEL APRN GISSELL N V06.1 Tdap Dx 02/12/2012 SHAWN COKER APRN S V03.82 PPV23 (PNEUMOVAX) DX 02/12/2012 SHAWN COKER APRN S V06.1 TDAP DX 02/12/2012 SHAWN COKER APRN S 626.9 MENSTRUATION AND OTHER ABNORMAL BLEEDING FROM FEMALE GENITAL TRACT 03/17/2012 465.9 Upper Respiratory Infection 03/17/2012 924.10 Contusion Of Lower Leg 03/17/2012 465.9 Upper Respiratory Infection 03/17/2012 924.10 Contusion Of Lower Leg 03/17/2012 465.9 Upper Respiratory Infection 03/17/2012 924.10 Contusion Of Lower Leg 03/17/2012 465.9 Upper Respiratory Infection 03/17/2012 924.10 Contusion Of Lower Leg 03/17/2012 CRISTHIAN DIAZPHIL GOLF MANAGERJIM ForrestCY N 465.9 Upper Respiratory Infection 03/17/2012 MORROWMAE EMANUEL APRJIM ForrestCY N 924.10 Contusion Of Lower Leg 03/17/2012 NURIAPOLI Forrest APRN A 465.9 Upper Respiratory Infection 03/17/2012 POLI QUIÑONES APRN A 924.10 Contusion Of Lower Leg 03/17/2012 GISSELL GARZA APRN N 465.9 Upper Respiratory Infection 03/17/2012 CRISTHIAN DIAZJIM VILLARREAL APRNCY N 924.10 Contusion Of Lower Leg 03/17/2012 MORROW JOEGISSELL VILLARREAL APRN N 465.9 Upper Respiratory Infection 03/17/2012 CRISTHIAN DIAZJIM VILLARREAL APRNCY N 924.10 Contusion Of Lower Leg 03/17/2012 SHEELASERGEI CASAS, SHAWN S 465.9 UPPER RESPIRATORY INFECTION 03/17/2012 SHEELASERGEI CASAS, SHAWN S 924.10 CONTUSION OF LOWER LEG 03/17/2012 SHEELASERGEI CASAS, SHAWN S 626.9 MENSTRUATION AND OTHER ABNORMAL BLEEDING FROM FEMALE GENITAL TRACT 04/06/2012 616.10 VAGINITIS AND VULVOVAGINITIS UNSPECIFIED 04/06/2012 616.10 VAGINITIS AND VULVOVAGINITIS UNSPECIFIED 04/06/2012 616.10 VAGINITIS AND VULVOVAGINITIS UNSPECIFIED 04/06/2012 616.10 VAGINITIS AND VULVOVAGINITIS UNSPECIFIED 04/06/2012 GISSELL GARZA APRN N 616.10 VAGINITIS AND VULVOVAGINITIS UNSPECIFIED 04/06/2012 POLI QUIÑONES APRN A 616.10 VAGINITIS AND VULVOVAGINITIS UNSPECIFIED 04/06/2012 GISSELL GARZA APRN N 616.10 VAGINITIS AND VULVOVAGINITIS UNSPECIFIED 04/06/2012 MORROW JOEGISSELL VILLARREAL APRN N 616.10 VAGINITIS AND VULVOVAGINITIS UNSPECIFIED 04/06/2012 626.9 Menstruation And Other Abnormal Bleeding From Female Genital Tract 04/20/2012 461.9 SINUSITIS ACUTE 04/20/2012 786.2 cough 04/20/2012 461.9 SINUSITIS ACUTE 04/20/2012 786.2 cough 04/20/2012 461.9 SINUSITIS ACUTE 04/20/2012 786.2 cough 04/20/2012 GISSELL GARZA APRN N 461.9 SINUSITIS ACUTE 04/20/2012 GISSELL GARZA APRN N 786.2 cough 04/20/2012 POLI QUIÑONES APRN A 461.9 SINUSITIS ACUTE 04/20/2012 POLI QUIÑONES APRN A 786.2 cough 04/20/2012 GISSELL GARZA APRN N 461.9 SINUSITIS ACUTE 04/20/2012 GISSELL GARZA APRN N 786.2 cough 04/20/2012 GISSELL GARZA APRN [...] Other Abnormal Bleeding From Female Genital Tract 10/10/2013 WILY BARRIENTOS DO Ot 305.00 ALCOHOL ABUSE-UNSPEC 10/10/2013 WILY BARRIENTOS DO Ot 305.90 DRUG ABUSE NEC-UNSPEC 10/10/2013 WILY BARRIENTOS DO Ot 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 10/10/2013 WILY BARRIENTOS DO Ot E947.9 ADV EFF MEDICINAL NOS 10/10/2013 WILY BARRIENTOS DO Ot V15.81 HX OF PAST NONCOMPLIANCE 10/10/2013 WILY BARRIENTOS DO Ot 300.00 ANXIETY STATE NOS 07/23/2016 WILY BARRIENTOS DO Ot F17.210 NICOTINE DEPENDENCE, CIGARETTES, UNCOMPL 07/23/2016 WILY BARRIENTOS DO Ot R07.89 OTHER CHEST PAIN 07/23/2016 WILY BARRIENTOS DO Ot R20.2 PARESTHESIA OF SKIN 08/17/2016 JAYESH BARNETT MD Ot B37.0 CANDIDAL STOMATITIS 08/17/2016 JAYESH BARNETT MD Ot F17.210 NICOTINE DEPENDENCE, CIGARETTES, UNCOMPL 08/17/2016 JAYESH BARNETT MD Ot F41.9 ANXIETY DISORDER, UNSPECIFIED 08/17/2016 JAYESH BARNETT MD Ot R11.2 NAUSEA WITH VOMITING, UNSPECIFIED 08/17/2016 JAYESH BARNETT MD Ot R19.7 DIARRHEA, UNSPECIFIED 08/17/2016 JAYESH BARNETT MD Ot R21 RASH AND OTHER NONSPECIFIC SKIN ERUPTION 08/17/2016 JAYESH BARNETT MD Ot Z79.899 OTHER ALF (CURRENT) DRUG THERAPY 08/18/2016 JAYESH BARNETT MD Ot B37.0 CANDIDAL STOMATITIS 08/18/2016 JAYESH BARNETT MD Ot F17.210 NICOTINE DEPENDENCE, CIGARETTES, UNCOMPL 08/18/2016 JAYESH BARNETT MD Ot F41.9 ANXIETY DISORDER, UNSPECIFIED 08/18/2016 JAYESH BARNETT MD Ot R11.2 NAUSEA WITH VOMITING, UNSPECIFIED 08/18/2016 JAYESH BARNETT MD Ot R19.7 DIARRHEA, UNSPECIFIED 08/18/2016 JAYESH BARNETT MD Ot R21 RASH AND OTHER NONSPECIFIC SKIN ERUPTION 08/18/2016 JAYESH BARNETT MD Ot Z79.899 OTHER ALF (CURRENT) DRUG THERAPY Procedures Code Description [place] [address] XRAY KNEE RIGHT 1 OR 2 VIEWS 03/25/2012 54374 CULTURE UROGENITAL 04/06/2012 47919 XRAY FOOT RIGHT 2 VIEWS 01/23/2013 36176 PAP SMEAR 2012 Q0091 PAP SMEAR OBTAIN SMEAR 04/17/2013 86949 URINE TEST (IN-HOUSE) 04/17/2013 J1050 DEPO PROVERA 05548 THERAPUTIC INJ SQ/IM 04/17/2013 57820 THERAPUTIC INJ SQ/IM 08/22/2013 J1030 DEPO MEDROL 40 MG INJ 08/22/2013 73365 UA LONG DIP 08/31 Results Test Result [...] NEGATIVE NEGATIVE Urine propoxyphene detection NEGATIVE NEGATIVE Complete blood count (CBC) with automated white blood cell (WBC) differential - 08/17/16 03:55 Blood leukocytes automated count (number/volume) 16.5 10*3/ uL 4.3-11.0 Blood erythrocytes automated count (number/volume) 4.89 10*6 /uL 4.35-5.85 Venous blood hemoglobin measurement (mass/volume) 14.6 g/dL 11.5-16.0 Blood hematocrit (volume fraction) 43 % 35-52 Automated erythrocyte mean corpuscular volume 88 [foz_us] 80-99 Automated erythrocyte mean corpuscular hemoglobin (mass per erythrocyte) 30 pg 25-34 Automated erythrocyte mean corpuscular hemoglobin concentration measurement ( mass/volume) 34 g/dL 32-36 Automated erythrocyte distribution width ratio 14.6 % 10.0-14.5 Automated blood platelet count (count/volume) 374 10*3/uL 130-400 Automated blood platelet mean volume measurement 10.3 [foz_ us] 7.4-10.4 Automated blood neutrophils/100 leukocytes 74 % 42-75 Automated blood lymphocytes/100 leukocytes 17 % 12-44 Blood monocytes/100 leukocytes 6 % 0-12 Automated blood eosinophils/100 leukocytes 3 % 0-10 Automated blood basophils/100 leukocytes 0 % 0-10 Blood neutrophils automated count (number/volume) 12.3 10*3 1.8-7.8 Blood lymphocytes automated count (number/volume) 2.7 10*3 1.0-4.0 Blood monocytes automated count (number/volume) 1.0 10*3 0.0-1.0 Automated eosinophil count 0.5 10*3/uL 0.0-0.3 Automated blood basophil count (count/volume) 0.0 10*3/uL 0.0-0.1 Blood manual differential performed detection - 08/17/16 03:55 Blood monocytes/100 leukocytes 6 % NRG Manual blood segmented neutrophils/100 leukocytes 72 % NRG Blood band neutrophils/100 leukocytes 0 % NRG Manual blood lymphocytes/100 leukocytes 16 % NRG Manual eosinophils/100 leukocytes in nose 3 % NRG Manual blood basophils/100 leukocytes 1 % NRG Blood lymphocytes variant/100 leukocytes 2 % NRG Blood anisocytosis detection by light microscopy [facility] Comprehensive metabolic panel - 08/17/16 03:55 Serum or plasma sodium measurement (moles/volume) 138 mmol/ L 135-145 Serum or plasma potassium measurement (moles/volume) 4.1 mmol/L 3.6-5.0 Serum or plasma chloride measurement (moles/volume) 106 mmol /L 98-107 Carbon dioxide 22 mmol/L 21-32 Serum or plasma anion gap determination (moles/volume) 10 mmol/L 5-14 Serum or plasma urea nitrogen measurement (mass/volume) 12 mg/dL 7-18 Serum or plasma creatinine measurement (mass/volume) 0.67 mg /dL 0.60-1.30 Serum or plasma urea nitrogen/creatinine mass ratio 18 NRG Serum or plasma creatinine measurement with calculation of estimated glomerular filtration rate > NRG Serum or plasma glucose measurement (mass/volume) 116 mg/dL 70-105 Serum or plasma calcium measurement (mass/volume) 8.8 mg/dL 8.5-10.1 Serum or plasma total bilirubin measurement (mass/volume) 0.3 mg/dL 0.1-1.0 Serum or plasma alkaline phosphatase measurement (enzymatic activity/volume) 78 U/L 40-136 Serum or plasma aspartate aminotransferase measurement (enzymatic activity/ volume) 15 U/L 5-34 Serum or plasma alanine aminotransferase measurement (enzymatic activity/volume ) 19 U/L 0-55 Serum or plasma protein measurement (mass/volume) 6.8 g/dL 6.4-8.2 Serum or plasma albumin measurement (mass/volume) 4.1 g/dL 3.2-4.5 Human immunodeficiency virus (HIV) type 1 and 2 antibody detection - 08/17/16 03:55 Serum HIV 1+2 antibody detection by immunoblot Non-Reactive Non-Reactive Interpretation of HIV-1 and HIV-2 antibody assay See Footnote NRG Complete urinalysis with reflex to culture - 08/17/16 04:35 Urine color determination YELLOW NRG Urine clarity determination CLEAR NRG Urine pH measurement by test strip 6 5- 9 Specific gravity of urine by test strip 1.010 1.016-1.022 Urine protein assay by test strip, semi-quantitative NEGATIVE NEGATIVE Urine glucose detection by automated test strip NEGATIVE NEGATIVE Erythrocytes detection in urine sediment by light microscopy NEGATIVE NEGATIVE Urine ketones detection by automated test strip NEGATIVE NEGATIVE Urine nitrite detection by test strip NEGATIVE NEGATIVE Urine total bilirubin detection by test strip NEGATIVE NEGATIVE Urine urobilinogen measurement by automated test strip (mass/volume) NORMAL NORMAL Urine leukocyte esterase detection by dipstick NEGATIVE NEGATIVE Automated urine sediment erythrocyte count by microscopy (number/high power field) NONE NRG Automated urine sediment leukocyte count by microscopy (number/high power field ) NONE NRG Bacteria detection in urine sediment by light microscopy TRACE NRG Squamous epithelial cells detection in urine sediment by light microscopy 2-5 NRG Crystals detection in urine sediment by light microscopy NONE NRG Casts detection in urine sediment by light microscopy NONE NRG Mucus detection in urine sediment by light microscopy NEGATIVE NRG Complete urinalysis with reflex to culture NO NRG Urine beta human chorionic gonadotropin (hCG) measurement - 08/17/16 04:35 Urine beta human chorionic gonadotropin (hCG) measurement NEGATIVE NEGATIVE Urine drug screening test - 08/17/16 04:35 Urine phencyclidine detection by screening method NEGATIVE [...] NEGATIVE NEGATIVE Urine propoxyphene detection NEGATIVE NEGATIVE Complete blood count (CBC) with automated white blood cell (WBC) differential - 10/23/16 13:10 Blood leukocytes automated count (number/volume) 17.7 10*3/ uL 4.3-11.0 Blood erythrocytes automated count (number/volume) 5.02 10*6 /uL 4.35-5.85 Venous blood hemoglobin measurement (mass/volume) 14.7 g/dL 11.5-16.0 Blood hematocrit (volume fraction) 45 % 35-52 Automated erythrocyte mean corpuscular volume 89 [foz_us] 80-99 Automated erythrocyte mean corpuscular hemoglobin (mass per erythrocyte) 29 pg 25-34 Automated erythrocyte mean corpuscular hemoglobin concentration measurement ( mass/volume) 33 g/dL 32-36 Automated erythrocyte distribution width ratio 13.6 % 10.0-14.5 Automated blood platelet count (count/volume) 372 10*3/uL 130-400 Automated blood platelet mean volume measurement 10.8 [foz_ us] 7.4-10.4 Automated blood neutrophils/100 leukocytes 83 % 42-75 Automated blood lymphocytes/100 leukocytes 11 % 12-44 Blood monocytes/100 leukocytes 4 % 0-12 Automated blood eosinophils/100 leukocytes 2 % 0-10 Automated blood basophils/100 leukocytes 0 % 0-10 Blood neutrophils automated count (number/volume) 14.6 10*3 1.8-7.8 Blood lymphocytes automated count (number/volume) 2.0 10*3 1.0-4.0 Blood monocytes automated count (number/volume) 0.8 10*3 0.0-1.0 Automated eosinophil count 0.3 10*3/uL 0.0-0.3 Automated blood basophil count (count/volume) 0.0 10*3/uL 0.0-0.1 Serum or plasma choriogonadotropin ( test) detection - 10/23/16 13:10 Serum or plasma choriogonadotropin ( test) detection NEGATIVE NEGATIVE Blood manual differential performed detection - 10/23/16 13:10 Blood monocytes/100 leukocytes 4 % NRG Manual blood segmented neutrophils/100 leukocytes 87 % NRG Blood band neutrophils/100 leukocytes 0 % NR Manual blood lymphocytes/100 leukocytes 7 % NR Manual eosinophils/100 leukocytes in nose 2 % NR Manual blood basophils/100 leukocytes 0 % [facility] Blood erythrocyte morphology finding identification NORMAL [facility] Comprehensive metabolic panel - 10/23/16 13:10 Serum or plasma sodium measurement (moles/volume) 140 mmol/ L 135-145 Serum or plasma potassium measurement (moles/volume) 4.4 mmol/L 3.6-5.0 Serum or plasma chloride measurement (moles/volume) 111 mmol /L 98-107 Carbon dioxide 19 mmol/L 21-32 Serum or plasma anion gap determination (moles/volume) 10 mmol/L 5-14 Serum or plasma urea nitrogen measurement (mass/volume) 9 mg /dL 7-18 Serum or plasma creatinine measurement (mass/volume) 0.77 mg /dL 0.60-1.30 Serum or plasma urea nitrogen/creatinine mass ratio 12 0-20 Serum or plasma creatinine measurement with calculation of estimated glomerular filtration rate > [facility] Serum or plasma glucose measurement (mass/volume) 147 mg/dL 70-105 Serum or plasma calcium measurement (mass/volume) 8.9 mg/dL 8.5-10.1 Serum or plasma total bilirubin measurement (mass/volume) 0.3 mg/dL 0.1-1.0 Serum or plasma alkaline phosphatase measurement (enzymatic activity/volume) 92 U/L 40-136 Serum or plasma aspartate aminotransferase measurement (enzymatic activity/ volume) 16 U/L 5-34 Serum or plasma alanine aminotransferase measurement (enzymatic activity/volume ) 17 U/L 0-55 Serum or plasma protein measurement (mass/volume) 7.1 g/dL 6.4-8.2 Serum or plasma albumin measurement (mass/volume) 4.0 g/dL 3.2-4.5 Magnesium - 10/23/16 13:10 Magnesium 2.0 mg/dL 1.8-2.4 THYROID STIMULATING HORMONE - 10/23/16 13:10 THYROID STIMULATING HORMONE 0.90 u[iU]/mL 0.35-4.94 Serum or plasma salicylates measurement (mass/volume) - 10/23/16 13:10 Serum or plasma salicylates measurement (mass/volume) < mg/ dL 5.0-20.0 Serum or plasma acetaminophen measurement (mass/volume) - 10/23/16 13:10 Serum or plasma acetaminophen measurement (mass/volume) < ug /mL 10-30 Serum or plasma ethanol measurement (mass/volume) - 10/23/16 13:10 Serum or plasma ethanol measurement (mass/volume) < mg/dL <10 Encounters ACCT No. Visit Date/Time Discharge Status Pt. Type Provider Facility Loc./Unit Complaint [id number] 08/31/2013 08:53:00 08/31/2013 23: 59:59 CLS Outpatient GISSELL GARZA APRN N [id number] 08/22/2013 07:54:00 08/22/2013 23: 59:59 CLS Outpatient GISSELL GARZA APRN N [id number] 04/17/2013 13:52:00 04/17/2013 23: 59:59 CLS Outpatient POLI QUIÑONES APRN [id number] 01/19/2013 10:50:00 01/19/2013 23: 59:59 CLS Outpatient GISSELL GARZA APRN N [id number] 04/20/2012 13:17:00 04/20/2012 23: 59:59 CLS Outpatient [id number] 04/06/2012 09:26:00 04/06/2012 23: 59:59 CLS Outpatient [id number] 02/12/2012 14:47:00 02/12/2012 23: 59:59 CLS Outpatient SHAWN COKER APRN [id number] 12/22/2012 10:29:00 Document Registration [id number] 11/22/2012 10:16:00 Document Registration
== END 2016-10-23 16:50 ==
LOC: EDUNIT# 12:49 → ER 12:51
DX: S52.101A Unspecified fracture of upper end of right radius, initial encounter for closed fracture (principal); T76.21XA Adult sexual abuse, suspected, initial encounter; F31.9 Bipolar disorder, unspecified; F23 Brief psychotic disorder; G47.8 Other sleep disorders; F17.210 Nicotine dependence, cigarettes, uncomplicated; Z32.02 Encounter for pregnancy test, result negative; V48.5XXA Car driver injured in noncollision transport accident in traffic accident, initial encounter
CPT/HCPCS: 29125; 36415; 70450; 71010; 72125; 73080; 73590; 73630; 80053; 80320; 80329; 83735; 84443; 84703; 85007; 85027

== ENCOUNTER 2016-11-01 17:13 | Emergency (ER) | payer MEDICARE, OTHER ==
[~2016-11-01] VITALS: Ht 167.6 cm; Wt 90.7 kg
[~2016-11-01 17:13] MED LIST changes: +OLANZapine 5 MG ODT (ZyPREXA ZYDIS) ONE
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
[2016-11-01] MEDS ORDERED: LORazepam INJ 2 MG/ML (ATIVAN) VIAL IVP ONE ×2 (17:30→18:00)
[2016-11-01] MEDS ORDERED: NS IV 1000 ML 1,000 ML IV SCH ×2 (17:30→19:15)
[2016-11-01 17:31] LABS: BASOPHILS % (AUTO) 0 % (0-10); EOSINOPHILS # (AUTO) 0.3 10^3/uL (0.0-0.3); EOSINOPHILS % (AUTO) 1 % (0-10); LYMPHOCYTES # (AUTO) 1.7 X 10^3 (1.0-4.0); LYMPHOCYTES % (AUTO) 9 % (12-44); MEAN CORPUSCULAR HEMOGLOBIN 29 PG (25-34); MEAN CORPUSCULAR HGB CONC 34 G/DL (32-36); MEAN CORPUSCULAR VOLUME 87 FL (80-99); MEAN PLATELET VOLUME 10.7 FL (7.4-10.4); MONOCYTES # (AUTO) 1.3 X 10^3 (0.0-1.0); MONOCYTES % (AUTO) 7 % (0-12); NEUTROPHILS # (AUTO) 16.3 X 10^3 (1.8-7.8); NEUTROPHILS % (AUTO) 83 % (42-75); PLATELET COUNT 398 10^3/uL (130-400); RED BLOOD COUNT 4.74 10^6/uL (4.35-5.85); RED CELL DISTRIBUTION WIDTH 13.1 % (10.0-14.5); WHITE BLOOD COUNT 19.6 10^3/uL (4.3-11.0)
[2016-11-01 17:43] LABS: ALANINE AMINOTRANSFERASE 19 U/L (0-55); ALBUMIN 3.9 GM/DL (3.2-4.5); ALCOHOL < 10 MG/DL (<10); ANION GAP 11 MMOL/L (5-14); ASPARTATE AMINO TRANSFERASE 18 U/L (5-34); BILIRUBIN,TOTAL 0.3 MG/DL (0.1-1.0); BLOOD UREA NITROGEN 14 MG/DL (7-18); BUN/CREATININE RATIO 19; CALCIUM 9.1 MG/DL (8.5-10.1); CARBON DIOXIDE 22 MMOL/L (21-32); CHLORIDE 106 MMOL/L (98-107); CREATININE SERUM 0.73 MG/DL (0.60-1.30); GFR ESTIMATED > 60; GLUCOSE 120 MG/DL (70-105); POTASSIUM 4.1 MMOL/L (3.6-5.0); SODIUM 139 MMOL/L (135-145); TOTAL PROTEIN 7.4 GM/DL (6.4-8.2)
[2016-11-01 18:00] LABS: BAND NEUTROPHILS 3 %; BASOPHILS % (MANUAL) 0 %; EOSINOPHILS % (MANUAL) 0 %; LYMPHOCYTES % (MANUAL) 9 %; NEUTROPHILS % (MANUAL) 80 %
[2016-11-01 18:54] LABS: BILIRUBIN,URINE NEGATIVE (NEGATIVE); KETONES,URINE 3+ (NEGATIVE); LEUKOCYTE ESTERASE ,URINE 1+ (NEGATIVE); NITRITE,URINE NEGATIVE (NEGATIVE); PH,URINE 5 (5-9); PROTEIN,URINE 1+ (NEGATIVE); UROBILINOGEN,URINE NORMAL (NORMAL)
[2016-11-01] MEDS ORDERED: KETOROLAC 30 MG/ML VIAL IVP ONE (19:00)
[2016-11-01 19:03] LABS: SQUAMOUS EPITHELIAL CELL,UR 0-2 /HPF
[2016-11-01 20:09] VITALS: BP 116/64
--- NOTE | 2016-11-01 20:32 | Diagnostic Imaging Report ---
INDICATION: Dehydration. EXAMINATION: Portable erect AP chest at 7:52 p.m. FINDINGS: The heart size is within normal limits and stable when compared to 10/23/16. The perihilar markings are somewhat prominent but no different than on the prior exam. The lungs remain clear. There is no sign of failure, pneumonia or a pleural effusion. The mediastinum is not widened. The osseous structures are intact. IMPRESSION: There is no evidence for active disease. When compared to the prior study, there has been no significant change. Dictated by: Dictated on workstation # [id number]
--- OUTSIDE RECORDS SUMMARY | 2016-11-04 13:44 | XMS REPORT | Continuity of Care Document ---
Author Author [facility] Organization [facility] Address Unknown Phone Unavailable Care Team Providers Care Immigration Judge Name Role Phone Michael Kumar PCP [phone] Source Comments Some departments are not documenting in the electronic medical record. If you do not see the information that you expected, contact Release of Information in the Health Information Management department at [phone] for further assistance in locating additional records.[facility] Active Allergies and Adverse Reactions Allergen [...] Taken Blood Pressure 151/96 03/10/2016 10:09 PM FIRST DYER Pulse 101 02/08/2015 2:31 AM CDT Temperature 36.3 C (97.3 F) 03/10/2016 10:09 PM FIRST DYER Respiratory Rate - - Height 1.626 m (5' 4") 03/10/2016 10:09 PM FIRST DYER Weight 72.8 kg (160 lb 7.9 oz) 03/10/2016 10:09 PM FIRST DYER Body Mass Index 27.54 03/10/2016 10:09 PM FIRST DYER Oxygen Saturation 96% 03/10/2016 10:09 PM FIRST DYER Plan of Care Health Maintenance Due Date Last Done Comments Physical (Comprehensive) 1992 Exam Pertussis Vaccine 1996 Tetanus Vaccine 2002 Cervical Cancer Screening 2006 Influenza Vaccine 01/01/2017 Results from Last 3 Months Not on file
== END 2016-11-01 20:08 | disposition home or self-care (01) ==
LOC: EDUNIT# 17:13 → ER 17:14
DX: F22 Delusional disorders (principal); F20.9 Schizophrenia, unspecified; F31.9 Bipolar disorder, unspecified; F98.8 Other specified behavioral and emotional disorders with onset usually occurring in childhood and adolescence; F90.9 Attention-deficit hyperactivity disorder, unspecified type; F41.9 Anxiety disorder, unspecified; F17.210 Nicotine dependence, cigarettes, uncomplicated
CPT/HCPCS: 36415; 71010; 80053; 80306; 80320; 81000; 84703; 85007; 85027; 86141; 96361; 96374

== ENCOUNTER 2016-11-03 01:53 | Emergency (ER) | payer MEDICARE ==
[~2016-11-03] VITALS: Ht 167.6 cm; Wt 90.7 kg
[~2016-11-03 01:53] MED LIST changes: -OLANZapine 5 MG ODT (ZyPREXA ZYDIS) ONE
[2016-11-03] MEDS ORDERED: ONDANSETRON 4 MG (ZOFRAN) ORAL DISSOLVE TAB PO ONE (02:30)
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
[2016-11-03] MEDS ORDERED: OLANZapine 5 MG ODT (ZyPREXA ZYDIS) ONE (02:35)
[2016-11-03] MEDS ORDERED: diphenhydrAMINE 25 MG TAB (BENADRYL) PO ONE ×2 (02:35→02:45)
[2016-11-03] MEDS ORDERED: ONDANSETRON 4 MG (ZOFRAN) ORAL DISSOLVE TAB ONE (02:35)
[2016-11-03 02:42] LABS: BASOPHILS # (AUTO) 0.1 10^3/uL (0.0-0.1); BASOPHILS % (AUTO) 0 % (0-10); EOSINOPHILS # (AUTO) 0.5 10^3/uL (0.0-0.3); EOSINOPHILS % (AUTO) 4 % (0-10); LYMPHOCYTES # (AUTO) 3.5 X 10^3 (1.0-4.0); LYMPHOCYTES % (AUTO) 25 % (12-44); MEAN CORPUSCULAR HEMOGLOBIN 29 PG (25-34); MEAN CORPUSCULAR HGB CONC 34 G/DL (32-36); MEAN CORPUSCULAR VOLUME 87 FL (80-99); MEAN PLATELET VOLUME 10.1 FL (7.4-10.4); MONOCYTES # (AUTO) 1.1 X 10^3 (0.0-1.0); MONOCYTES % (AUTO) 7 % (0-12); NEUTROPHILS # (AUTO) 9.2 X 10^3 (1.8-7.8); NEUTROPHILS % (AUTO) 64 % (42-75); PLATELET COUNT 408 10^3/uL (130-400); RED BLOOD COUNT 4.43 10^6/uL (4.35-5.85); WHITE BLOOD COUNT 14.4 10^3/uL (4.3-11.0)
[2016-11-03 02:44] LABS: BILIRUBIN,URINE NEGATIVE (NEGATIVE); KETONES,URINE 1+ (NEGATIVE); LEUKOCYTE ESTERASE ,URINE 1+ (NEGATIVE); NITRITE,URINE NEGATIVE (NEGATIVE); PH,URINE 5 (5-9); PROTEIN,URINE 1+ (NEGATIVE); UROBILINOGEN,URINE NORMAL (NORMAL)
[2016-11-03] MEDS ORDERED: OLANZapine 5 MG ODT (ZyPREXA ZYDIS) PO ONE (02:45)
[2016-11-03 02:47] VITALS: BP 120/62
[2016-11-03 03:00] LABS: SQUAMOUS EPITHELIAL CELL,UR TNTC /HPF
[2016-11-03 03:02] LABS: ALANINE AMINOTRANSFERASE 20 U/L (0-55); ALBUMIN 3.8 GM/DL (3.2-4.5); ALCOHOL < 10 MG/DL (<10); ANION GAP 10 MMOL/L (5-14); ASPARTATE AMINO TRANSFERASE 24 U/L (5-34); BILIRUBIN,TOTAL 0.2 MG/DL (0.1-1.0); BLOOD UREA NITROGEN 12 MG/DL (7-18); BUN/CREATININE RATIO 17; CALCIUM 8.3 MG/DL (8.5-10.1); CARBON DIOXIDE 22 MMOL/L (21-32); CHLORIDE 109 MMOL/L (98-107); CREATININE SERUM 0.69 MG/DL (0.60-1.30); GFR ESTIMATED > 60; GLUCOSE 96 MG/DL (70-105); POTASSIUM 3.9 MMOL/L (3.6-5.0); SALICYLATE < 5.0 MG/DL (5.0-20.0); SODIUM 141 MMOL/L (135-145); TOTAL PROTEIN 6.7 GM/DL (6.4-8.2)
[2016-11-03 03:13] LABS: ACETAMINOPHEN < 10 UG/ML (10-30)
--- OUTSIDE RECORDS SUMMARY | 2016-11-04 15:36 | XMS REPORT | Continuity of Care Document ---
Author Author [facility] Organization [facility] Address Unknown Phone Unavailable Care Team Providers Care Wireless Development Manager Name Role Phone Michael Kumar PCP [phone] Source Comments Some departments are not documenting in the electronic medical record. If you do not see the information that you expected, contact Release of Information in the Health Information Management department at [phone] for further assistance in locating additional records.[facility] Active Allergies and Adverse Reactions Allergen Noted [...] Taken Blood Pressure 151/96 03/10/2016 10:09 PM COMMODITY LOAN CLERK Pulse 101 02/08/2015 2:31 AM CDT Temperature 36.3 C (97.3 F) 03/10/2016 10:09 PM COMMODITY LOAN CLERK Respiratory Rate - - Height 1.626 m (5' 4") 03/10/2016 10:09 PM COMMODITY LOAN CLERK Weight 72.8 kg (160 lb 7.9 oz) 03/10/2016 10:09 PM COMMODITY LOAN CLERK Body Mass Index 27.54 03/10/2016 10:09 PM COMMODITY LOAN CLERK Oxygen Saturation 96% 03/10/2016 10:09 PM COMMODITY LOAN CLERK Plan of Care Health Maintenance Due Date Last Done Comments Physical (Comprehensive) 1992 Exam Pertussis Vaccine 1996 Tetanus Vaccine 2002 Cervical Cancer Screening 2006 Influenza Vaccine 01/01/2017 Results from Last 3 Months Not on file
== END 2016-11-03 02:47 | disposition left against medical advice (07) ==
LOC: EDUNIT# 01:53 → ER 01:54
DX: F22 Delusional disorders (principal); F20.9 Schizophrenia, unspecified; F31.9 Bipolar disorder, unspecified; F41.8 Other specified anxiety disorders; F14.90 Cocaine use, unspecified, uncomplicated; F15.90 Other stimulant use, unspecified, uncomplicated; F17.210 Nicotine dependence, cigarettes, uncomplicated; R45.6 Violent behavior; Z91.5 Personal history of self-harm; Z32.02 Encounter for pregnancy test, result negative
CPT/HCPCS: 36415; 80053; 80306; 80320; 80329; 81000; 84443; 84703; 85025; 87088; 93005; 93041

== ENCOUNTER 2016-11-10 23:15 | Emergency (ER) | payer MEDICARE ==
[~2016-11-10] VITALS: Ht 167.6 cm; Wt 90.7 kg
--- OUTSIDE RECORDS SUMMARY | 2016-11-10 23:29 | XMS REPORT | Continuity of Care Document ---
Author Author [facility] Organization [facility] Address Unknown Phone Unavailable Care Team Providers Care Radio Repairer Domestic Name Role Phone Michael Kumar PCP [phone] Source Comments Some departments are not documenting in the electronic medical record. If you do not see the information that you expected, contact Release of Information in the Health Information Management department at [phone] for further assistance in locating additional records.[facility] Active Allergies and Adverse Reactions [...] Taken Blood Pressure 151/96 03/10/2016 10:09 PM EXIT BOOTH AGENT Pulse 101 02/08/2015 2:31 AM CDT Temperature 36.3 C (97.3 F) 03/10/2016 10:09 PM EXIT BOOTH AGENT Respiratory Rate - - Height 1.626 m (5' 4") 03/10/2016 10:09 PM EXIT BOOTH AGENT Weight 72.8 kg (160 lb 7.9 oz) 03/10/2016 10:09 PM EXIT BOOTH AGENT Body Mass Index 27.54 03/10/2016 10:09 PM EXIT BOOTH AGENT Oxygen Saturation 96% 03/10/2016 10:09 PM EXIT BOOTH AGENT Plan of Care Health Maintenance Due Date Last Done Comments Physical (Comprehensive) 1992 Exam Pertussis Vaccine 1996 Tetanus Vaccine 2002 Cervical Cancer Screening 2006 Influenza Vaccine 01/01/2017 Results from Last 3 Months Not on file
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
[2016-11-10 23:54] LABS: BASOPHILS # (AUTO) 0.1 10^3/uL (0.0-0.1); BASOPHILS % (AUTO) 0 % (0-10); EOSINOPHILS # (AUTO) 0.3 10^3/uL (0.0-0.3); EOSINOPHILS % (AUTO) 2 % (0-10); LYMPHOCYTES % (AUTO) 26 % (12-44); MEAN CORPUSCULAR HEMOGLOBIN 29 PG (25-34); MEAN CORPUSCULAR HGB CONC 33 G/DL (32-36); MEAN CORPUSCULAR VOLUME 88 FL (80-99); MEAN PLATELET VOLUME 10.1 FL (7.4-10.4); MONOCYTES # (AUTO) 0.9 X 10^3 (0.0-1.0); MONOCYTES % (AUTO) 8 % (0-12); NEUTROPHILS # (AUTO) 7.5 X 10^3 (1.8-7.8); NEUTROPHILS % (AUTO) 64 % (42-75); PLATELET COUNT 424 10^3/uL (130-400); RED BLOOD COUNT 4.65 10^6/uL (4.35-5.85); WHITE BLOOD COUNT 11.7 10^3/uL (4.3-11.0)
[2016-11-11 00:17] LABS: ALANINE AMINOTRANSFERASE 44 U/L (0-55); ALBUMIN 3.9 GM/DL (3.2-4.5); ALCOHOL < 10 MG/DL (<10); ANION GAP 12 MMOL/L (5-14); ASPARTATE AMINO TRANSFERASE 31 U/L (5-34); BILIRUBIN,TOTAL 0.1 MG/DL (0.1-1.0); BLOOD UREA NITROGEN 15 MG/DL (7-18); BUN/CREATININE RATIO 23; CALCIUM 8.3 MG/DL (8.5-10.1); CARBON DIOXIDE 21 MMOL/L (21-32); CHLORIDE 108 MMOL/L (98-107); CREATININE SERUM 0.66 MG/DL (0.60-1.30); GFR ESTIMATED > 60; GLUCOSE 154 MG/DL (70-105); MAGNESIUM 1.5 MG/DL (1.8-2.4); SODIUM 141 MMOL/L (135-145)
[2016-11-11] MEDS ORDERED: MAGNESIUM OXIDE (MAG-OX)400 MG TAB PO ONE (00:30)
[2016-11-11 01:02] LABS: BILIRUBIN,URINE NEGATIVE (NEGATIVE); KETONES,URINE 1+ (NEGATIVE); LEUKOCYTE ESTERASE ,URINE 1+ (NEGATIVE); NITRITE,URINE NEGATIVE (NEGATIVE); PH,URINE 5 (5-9); PROTEIN,URINE NEGATIVE (NEGATIVE); UROBILINOGEN,URINE NORMAL (NORMAL)
[2016-11-11] MEDS ORDERED: NS IV 1000 ML 1,000 ML IV ONE (01:54)
[2016-11-11] MEDS ORDERED: OLANZapine 5 MG ODT (ZyPREXA ZYDIS) ONE (02:00)
[2016-11-11] MEDS ORDERED: CEPHALEXIN 250 MG (KEFLEX) CAP PO ONE (02:00)
[2016-11-11] MEDS ORDERED: ONDANSETRON 4 MG/2 ML (SDV) Z0FRAN IVP ONE (02:00)
[2016-11-11] MEDS ORDERED: OLANZapine 5 MG ODT (ZyPREXA ZYDIS) PO STA (02:10)
[2016-11-11] MEDS: OLANZapine 5 MG (ZyPREXA) TAB PO ONE ×2 (02:14→02:16)
[2016-11-11] MEDS ORDERED: CEPH-507 PO (03:23)
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
[2016-11-11 03:25] VITALS: BP 143/92
== END 2016-11-11 03:25 | disposition home or self-care (01) ==
LOC: EDUNIT# 23:18 → ER 23:20
DX: F41.9 Anxiety disorder, unspecified (principal); F31.9 Bipolar disorder, unspecified; F20.9 Schizophrenia, unspecified; N39.0 Urinary tract infection, site not specified; E83.42 Hypomagnesemia; L55.9 Sunburn, unspecified; E86.1 Hypovolemia; F14.10 Cocaine abuse, uncomplicated; F15.10 Other stimulant abuse, uncomplicated; F12.10 Cannabis abuse, uncomplicated; F10.10 Alcohol abuse, uncomplicated; R45.6 Violent behavior; F17.210 Nicotine dependence, cigarettes, uncomplicated; Z90.49 Acquired absence of other specified parts of digestive tract; Z90.89 Acquired absence of other organs; Z98.890 Other specified postprocedural states; Z91.5 Personal history of self-harm; Z91.14 Patient's other noncompliance with medication regimen
CPT/HCPCS: 36415; 80053; 80306; 80320; 81000; 83735; 84703; 85025; 87088; 96361; 96374

== ENCOUNTER 2016-11-29 06:37 | Emergency (ER) | payer MEDICARE ==
[~2016-11-29] VITALS: Ht 167.6 cm; Wt 90.7 kg
[~2016-11-29 06:37] MED LIST changes: +CEPH-507 PO
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
[2016-11-29] MEDS ORDERED: NAPR500T PO (07:12)
[2016-11-29] MEDS ORDERED: NAPROXEN 250 MG (NAPROSYN) TABLET PO ONE (07:15)
[2016-11-29 07:37] VITALS: BP 145/98
== END 2016-11-29 07:36 | disposition home or self-care (01) ==
LOC: EDUNIT# 06:37 → ER 06:40
DX: S93.602A Unspecified sprain of left foot, initial encounter (principal); S93.601A Unspecified sprain of right foot, initial encounter; S96.911A Strain of unspecified muscle and tendon at ankle and foot level, right foot, initial encounter; S96.912A Strain of unspecified muscle and tendon at ankle and foot level, left foot, initial encounter; F41.9 Anxiety disorder, unspecified; F31.9 Bipolar disorder, unspecified; F20.9 Schizophrenia, unspecified; Z91.5 Personal history of self-harm; V49.9XXA Car occupant (driver) (passenger) injured in unspecified traffic accident, initial encounter
CPT/HCPCS: 99283

== ENCOUNTER 2016-12-02 12:54 | Emergency (ER) | payer MEDICARE ==
[~2016-12-02] VITALS: Ht 162.6 cm; Wt 108.9 kg
[~2016-12-02 12:54] MED LIST changes: +NAPR500T PO
[2016-12-02] MEDS ORDERED: NS IV 1000 ML 1,000 ML IV SCH (13:00)
--- NOTE | 2016-12-02 13:02 | ED General ---
General Stated Complaint: WEAKNESS/FEVER Source of Information: Patient, EMS Exam Limitations: No Limitations History of Present Illness Time Seen by Provider: 12:59 Initial Comments to ER per EMS from a gas [place] [address] where she presented complaining of weakness. Upon EMS arrival she reports that she's had scabs on her face, intermittent fevers and weakness for at least a month. she states that she's recently been released from [facility] at [facility] in [place]. She was given Olanzapine there which seemed to be working. However, when she picked up her prescription at the pharmacy the pills looked different so she stopped taking them. Timing/Duration: Intermittent Severity: Moderate Allergies and Home Medications Allergies Coded Allergies: buspirone (Verified Allergy, Severe, HIVES, 09/07/13) risperidone (Verified Allergy, Intermediate, RASH, 09/07/13) erythromycin base (Verified Allergy, Unknown, 09/07/13) Home Medications Cephalexin 500 Mg Capsule, 500 MG PO QID, #28 Prescribed by: JESUS MURPHY on 11/11/16 0323 Lurasidone HCl 80 Mg Tablet, 80 MG PO DAILY, #30 (Reported) Naproxen 500 Mg Tablet, 500 MG PO BID for 14 Days, #30 Ref 0 Prescribed by: JAYESH BARNETT on 11/29/16 0712 Nystatin 100,000 Unit/1 Ml Oral.susp, 100,000 UNIT PO TIDAC for 14 Days, #200 Ref 0 Prescribed by: JAYESH BARNETT on 08/17/16 0515 Olanzapine 7.5 Mg Tablet, 7.5 MG PO HS, #30 (Reported) Olanzapine 5 Mg Tablet, 5 MG PO DAILY, #30 (Reported) take at 1400 Ondansetron HCl 4 Mg Tab, 4 MG PO Q6H, #10 Ref 0 Prescribed by: JAYESH BARNETT on 08/17/16 0515 Paliperidone 3 Mg Tab.er.24, 3 MG PO BID, #60 (Reported) take at 1500 and at bedtime Trazodone HCl 50 Mg Tablet, 50 MG PO HS, #30 (Reported) Trihexyphenidyl HCl 2 Mg Tablet, 2 MG PO DAILY, #30 (Reported) take with a meal Vortioxetine Hydrobromide 5 Mg Tablet, 5 MG PO BID, #60 (Reported) take 1 tablet in the morning and 1 tablet at noon Vortioxetine Hydrobromide 10 Mg Tablet, 10 MG PO HS, #30 (Reported) Constitutional: see HPI EENTM: see HPI Respiratory: no symptoms reported Cardiovascular: no symptoms reported Genitourinary: no symptoms reported Musculoskeletal: no symptoms reported Skin: no symptoms reported Psychiatric/Neurological: No Symptoms Reported Hematologic/Lymphatic: No Symptoms Reported Immunological/Allergic: no symptoms reported Past Dwztetw-Clyafh-Uitcte Hx Patient Social History Drug of Choice: COCAINE, METH Type Used: Cigarettes 2nd Hand Smoke Exposure: No Recent Hopitalizations: No Immunizations Up To Date Tetanus Booster (TDap): Less than 5yrs Seasonal Allergies Seasonal Allergies: No Surgeries HX Surgeries: Yes (R HAND SURG; X 1 ) Surgeries: Appendectomy, Section, Orthopedic, Tonsillectomy Respiratory Hx Respiratory Disorders: No Cardiovascular Hx Cardiac Disorders: No Neurological Hx Neurological Disorders: No Reproductive System Hx Reproductive Disorders: No Sexually Transmitted Disease: No Female Reproductive Disorders: Denies, Ovarian Cyst Genitourinary Hx Genitourinary Disorders: No Gastrointestinal Hx Gastrointestinal Disorders: No Musculoskeletal Hx Musculoskeletal Disorders: No Endocrine Hx Endocrine Disorders: No HEENT HX ENT Disorders: No Cancer Hx Cancer: No Psychosocial Hx Psychiatric Problems: Yes Behavioral Health Disorders: Anxiety, Suicide Attempts, Bipolar, Schizophrenia , Violent Behavior, Depression Integumentary HX Skin/Integumentary Disorder: No Blood Transfusions Hx Blood Disorders: No Family Medical History Significant Family History: No Pertinent Family Hx Physical Exam Vital Signs Vital Sign - Last 12Hours 12/02/16 13:15 Temp 98.3 Pulse 88 Resp 18 B/P (MAP) 165/109 Pulse Ox 99 Capillary Refill : General Appearance: No Apparent Distress, WD/WN Eyes: Bilateral Eye Normal Inspection, Bilateral Eye PERRL HEENT: PERRL/EOMI, TMs Normal Neck: Full Range of Motion, Normal Inspection Respiratory: No Accessory Muscle Use, No Respiratory Distress Cardiovascular: Regular Rate, Rhythm, Normal Peripheral Pulses Gastrointestinal: Normal Bowel Sounds, Non Tender, Soft Extremity: Normal Capillary Refill, Normal Inspection Neurologic/Psychiatric: Alert, Oriented x3, No Motor/Sensory Deficits Skin: Normal Color, Warm/Dry, Other (very dirty feet, has a bag of her clothes with her. States she is currently homeless. There are no scabs on her face and she is afebrile) Progress/Results/Core Measures Results/Orders Lab Results Laboratory Tests Test 12/02/16 12:55 Range/Units White Blood Count 18.6 H 4.3-11.0 10^3/uL Red Blood Count 4.72 4.35-5.85 10^6/uL Hemoglobin 13.8 11.5-16.0 G/DL Hematocrit 41 35-52 % Mean Corpuscular Volume 87 80-99 FL Mean Corpuscular Hemoglobin 29 25-34 PG Mean Corpuscular Hemoglobin Concent 34 32-36 G/DL Red Cell Distribution Width 13.8 10.0-14.5 % Platelet Count 429 H 130-400 10^3/uL Mean Platelet Volume 10.1 7.4-10.4 FL Neutrophils (%) (Auto) 76 H 42-75 % Lymphocytes (%) (Auto) 15 12-44 % Monocytes (%) (Auto) 6 0-12 % Eosinophils (%) (Auto) 3 0-10 % Basophils (%) (Auto) 0 0-10 % Neutrophils # (Auto) 14.1 H 1.8-7.8 X 10^3 Lymphocytes # (Auto) 2.8 1.0-4.0 X 10^3 Monocytes # (Auto) 1.0 0.0-1.0 X 10^3 Eosinophils # (Auto) 0.6 H 0.0-0.3 10^3/uL Basophils # (Auto) 0.0 0.0-0.1 10^3/uL Neutrophils % (Manual) 78 % Lymphocytes % (Manual) 11 % Monocytes % (Manual) 5 % Eosinophils % (Manual) 2 % Reactive Lymphocytes 4 % Blood Morphology Comment NORMAL Erythrocyte Sedimentation Rate 8 0-20 MM/HR Urine Color YELLOW Urine Clarity SLIGHTLY CLOUDY Urine pH 6 5-9 Urine Specific [place] 1.010 L 1.016-1.022 Urine Protein NEGATIVE NEGATIVE Urine Glucose (UA) NEGATIVE NEGATIVE Urine Ketones NEGATIVE NEGATIVE Urine Nitrite NEGATIVE NEGATIVE Urine Bilirubin NEGATIVE NEGATIVE Urine Urobilinogen NORMAL NORMAL MG/DL Urine Leukocyte Esterase NEGATIVE NEGATIVE Urine RBC (Auto) NEGATIVE NEGATIVE Urine RBC NONE /HPF Urine WBC NONE /HPF Urine Squamous Epithelial Cells RARE /HPF Urine Crystals NONE /LPF Urine Bacteria TRACE /HPF Urine Casts NONE /LPF Urine Mucus NEGATIVE /LPF Urine Culture Indicated NO Sodium Level 140 135-145 MMOL/L Potassium Level 3.7 3.6-5.0 MMOL/L Chloride Level 107 98-107 MMOL/L Carbon Dioxide Level 21 21-32 MMOL/L Anion Gap 12 5-14 MMOL/L Blood Urea Nitrogen 7 7-18 MG/DL Creatinine 0.65 0.60-1.30 MG/DL Estimat Glomerular Filtration Rate > 60 BUN/Creatinine Ratio 11 Glucose Level 98 70-105 MG/DL Calcium Level 9.1 8.5-10.1 MG/DL Total Bilirubin 0.4 0.1-1.0 MG/DL Aspartate Amino Transf (AST/SGOT) 18 5-34 U/L Alanine Aminotransferase (ALT/SGPT) 28 0-55 U/L Alkaline Phosphatase 111 40-136 U/L Total Protein 7.5 6.4-8.2 GM/DL Albumin 4.2 3.2-4.5 GM/DL Urine Opiates Screen NEGATIVE NEGATIVE Urine Oxycodone Screen NEGATIVE NEGATIVE Urine Methadone Screen NEGATIVE NEGATIVE Urine Propoxyphene Screen NEGATIVE NEGATIVE Urine Barbiturates Screen NEGATIVE NEGATIVE Ur Tricyclic Antidepressants Screen NEGATIVE NEGATIVE Urine Phencyclidine Screen NEGATIVE NEGATIVE Urine Amphetamines Screen NEGATIVE NEGATIVE Urine Methamphetamines Screen NEGATIVE NEGATIVE Urine Benzodiazepines Screen NEGATIVE NEGATIVE Urine Cocaine Screen NEGATIVE NEGATIVE Urine Cannabinoids Screen NEGATIVE NEGATIVE My Orders Orders - JOAQUIM REES APRN Cbc With Automated Diff (12/02/16 12:57) Ua Culture If Indicated (12/02/16 12:57) Drug Screen Stat (Urine) (12/02/16 12:57) Saline Lock/Iv-Start (12/02/16 12:57) Erythrocyte Sedimentation Rate (12/02/16 12:57) Ns Iv 1000 Ml (Sodium Chloride 0.9%) (12/02/16 13:00) Comprehensive Metabolic Panel (12/02/16 13:03) Olanzapine Orally Dissolve Tab (Zyprexa (12/02/16 13:15) Manual Differential (12/02/16 12:55) Medications Given in ED Current Medications Medications Dose Ordered Sig/Emeka Route Start Time Stop Time Status Last Admin Dose Admin Olanzapine 5 mg ONCE ONCE PO 12/02/16 13:15 12/02/16 13:16 DC 12/02/16 13:14 5 MG Vital Signs/I&O Vital Sign - Last 12Hours 12/02/16 13:15 Temp 98.3 Pulse 88 Resp 18 B/P (MAP) 165/109 Pulse Ox 99 Departure Communication Progress Notes I did discuss with the patient the need to follow-up with [facility] to further evaluate her chronic leukocytosis Impression Impression: Primary Impression: General medical exam Additional Impression: History of schizophrenia Disposition: HOME, SELF-CARE Condition: Stable Departure-Patient Inst. Decision time for Depature: 13:31 Referrals: ANYA WYNN MD (PCP/Family) Primary Care Physician Patient Instructions: NO INSTRUCTIONS GIVEN Add. Discharge Instructions: 1. Return to ER for any concerns 2. Take your medications as prescribed. They may look different from the pills that you're getting in the hospital at [facility] simply because a different irrigation foreman is making him. However, it is still the same medication. JOAQUIM REES APRN Dec 02, 2016 13:02
[2016-12-02 13:11] LABS: BASOPHILS % (AUTO) 0 % (0-10); EOSINOPHILS # (AUTO) 0.6 10^3/uL (0.0-0.3); EOSINOPHILS % (AUTO) 3 % (0-10); LYMPHOCYTES # (AUTO) 2.8 X 10^3 (1.0-4.0); LYMPHOCYTES % (AUTO) 15 % (12-44); MEAN CORPUSCULAR HEMOGLOBIN 29 PG (25-34); MEAN CORPUSCULAR HGB CONC 34 G/DL (32-36); MEAN CORPUSCULAR VOLUME 87 FL (80-99); MEAN PLATELET VOLUME 10.1 FL (7.4-10.4); MONOCYTES % (AUTO) 6 % (0-12); NEUTROPHILS # (AUTO) 14.1 X 10^3 (1.8-7.8); NEUTROPHILS % (AUTO) 76 % (42-75); PLATELET COUNT 429 10^3/uL (130-400); RED BLOOD COUNT 4.72 10^6/uL (4.35-5.85); RED CELL DISTRIBUTION WIDTH 13.8 % (10.0-14.5); WHITE BLOOD COUNT 18.6 10^3/uL (4.3-11.0)
[2016-12-02] MEDS ORDERED: OLANZapine 5 MG ODT (ZyPREXA ZYDIS) PO ONE (13:15)
[2016-12-02 13:16] LABS: BILIRUBIN,URINE NEGATIVE (NEGATIVE); KETONES,URINE NEGATIVE (NEGATIVE); LEUKOCYTE ESTERASE ,URINE NEGATIVE (NEGATIVE); NITRITE,URINE NEGATIVE (NEGATIVE); PH,URINE 6 (5-9); PROTEIN,URINE NEGATIVE (NEGATIVE); UROBILINOGEN,URINE NORMAL (NORMAL)
[2016-12-02 13:28] LABS: ALANINE AMINOTRANSFERASE 28 U/L (0-55); ALBUMIN 4.2 GM/DL (3.2-4.5); ANION GAP 12 MMOL/L (5-14); ASPARTATE AMINO TRANSFERASE 18 U/L (5-34); BILIRUBIN,TOTAL 0.4 MG/DL (0.1-1.0); BLOOD UREA NITROGEN 7 MG/DL (7-18); BUN/CREATININE RATIO 11; CALCIUM 9.1 MG/DL (8.5-10.1); CARBON DIOXIDE 21 MMOL/L (21-32); CHLORIDE 107 MMOL/L (98-107); CREATININE SERUM 0.65 MG/DL (0.60-1.30); GFR ESTIMATED > 60; GLUCOSE 98 MG/DL (70-105); POTASSIUM 3.7 MMOL/L (3.6-5.0); SODIUM 140 MMOL/L (135-145); SQUAMOUS EPITHELIAL CELL,UR RARE /HPF; TOTAL PROTEIN 7.5 GM/DL (6.4-8.2)
[2016-12-02 13:44] LABS: ERYTHROCYTE SEDIMENTATION RATE 8 MM/HR (0-20)
[2016-12-02 14:18] LABS: EOSINOPHILS % (MANUAL) 2 %; LYMPHOCYTES % (MANUAL) 11 %; NEUTROPHILS % (MANUAL) 78 %; REACTIVE LYMPHOCYTES 4 %
[2016-12-02 14:20] VITALS: BP 126/61
== END 2016-12-02 14:26 | disposition home or self-care (01) ==
LOC: EDUNIT# 12:54 → ER 12:55
DX: F20.9 Schizophrenia, unspecified (principal); F41.9 Anxiety disorder, unspecified; F31.9 Bipolar disorder, unspecified; Z91.5 Personal history of self-harm; Z90.49 Acquired absence of other specified parts of digestive tract; Z91.19 Patient's noncompliance with other medical treatment and regimen; Z87.59 Personal history of other complications of pregnancy, childbirth and the puerperium; Z90.89 Acquired absence of other organs
CPT/HCPCS: 36415; 80053; 80306; 81000; 85007; 85027; 85652; 96360; 96361

== ENCOUNTER 2016-12-02 21:14 | Emergency (ER) | payer MEDICARE ==
[~2016-12-02] VITALS: Ht 162.6 cm; Wt 108.9 kg
--- NOTE | 2016-12-02 21:37 | ED Psychosocial ---
General Chief Complaint: Psych/Social Disorder Stated Complaint: NEEDS MEDICALLY CLEARED Source: patient, old records, other ([facility]) Exam Limitations: clinical condition History of Present Illness Time seen by provider: 21:29 Initial Comments Patient presents the ER with chief complaint that earlier she had been known to be suicidal without any specific plan. I reviewed [facility]' s notes and they indicated that they would like to place her inpatient and she has been accepted to [facility] in [place] at [facility]. There are needing a medical clearance before she goes in. The patient does not have any present pain this or shortness of breath. She says she has no new symptoms since she was seen by the LEARNING DISABLED TEACHER this afternoon. Allergies and Home Medications Allergies Coded Allergies: buspirone (Verified Allergy, Severe, HIVES, 09/07/13) risperidone (Verified Allergy, Intermediate, RASH, 09/07/13) erythromycin base (Verified Allergy, Unknown, 09/07/13) Home Medications Cephalexin 500 Mg Capsule, 500 MG PO QID, #28 Prescribed by: JESUS MURPHY on 11/11/16 0323 Lurasidone HCl 80 Mg Tablet, 80 MG PO DAILY, #30 (Reported) Naproxen 500 Mg Tablet, 500 MG PO BID for 14 Days, #30 Ref 0 Prescribed by: JAYESH BARNETT on 11/29/16 0712 Nystatin 100,000 Unit/1 Ml Oral.susp, 100,000 UNIT PO TIDAC for 14 Days, #200 Ref 0 Prescribed by: JAYESH BARNETT on 08/17/16 0515 Olanzapine 7.5 Mg Tablet, 7.5 MG PO HS, #30 (Reported) Olanzapine 5 Mg Tablet, 5 MG PO DAILY, #30 (Reported) take at 1400 Ondansetron HCl 4 Mg Tab, 4 MG PO Q6H, #10 Ref 0 Prescribed by: JAYESH BARNETT on 08/17/16 0515 Paliperidone 3 Mg Tab.er.24, 3 MG PO BID, #60 (Reported) take at 1500 and at bedtime Trazodone HCl 50 Mg Tablet, 50 MG PO HS, #30 (Reported) Trihexyphenidyl HCl 2 Mg Tablet, 2 MG PO DAILY, #30 (Reported) take with a meal Vortioxetine Hydrobromide 5 Mg Tablet, 5 MG PO BID, #60 (Reported) take 1 tablet in the morning and 1 tablet at noon Vortioxetine Hydrobromide 10 Mg Tablet, 10 MG PO HS, #30 (Reported) Constitutional: see HPI (the patient is very spartan with her answers and not giving a full review of systems.) Past Oomisin-Ieumgk-Faimfj Hx Patient Social History Drug of Choice: COCAINE, METH Type Used: Cigarettes 2nd Hand Smoke Exposure: No Recent Foreign Travel: No Contact w/Someone Who Travel: No Recent Hopitalizations: No Immunizations Up To Date Tetanus Booster (TDap): Less than 5yrs Seasonal Allergies Seasonal Allergies: No Surgeries HX Surgeries: Yes (R HAND SURG; X 1 ) Surgeries: Appendectomy, Section, Orthopedic, Tonsillectomy Respiratory Hx Respiratory Disorders: No Cardiovascular Hx Cardiac Disorders: No Neurological Hx Neurological Disorders: No Reproductive System Hx Reproductive Disorders: No Sexually Transmitted Disease: No Female Reproductive Disorders: Denies, Ovarian Cyst Genitourinary Hx Genitourinary Disorders: No Gastrointestinal Hx Gastrointestinal Disorders: No Musculoskeletal Hx Musculoskeletal Disorders: No Endocrine Hx Endocrine Disorders: No HEENT HX ENT Disorders: No Cancer Hx Cancer: No Psychosocial Hx Psychiatric Problems: Yes Behavioral Health Disorders: Anxiety, Suicide Attempts, Bipolar, Schizophrenia , Violent Behavior, Depression Integumentary HX Skin/Integumentary Disorder: No Blood Transfusions Hx Blood Disorders: No Family Medical History Significant Family History: No Pertinent Family Hx Physical Exam Vital Signs Vital Sign - Last 12Hours 12/02/16 21:30 Temp 98.2 Pulse 94 Resp 18 B/P (MAP) 141/85 Pulse Ox 100 Capillary Refill : General Appearance: WD/WN, no apparent distress Respiratory: no respiratory distress, no accessory muscle use Cardiovascular: no edema, no JVD Neurologic/Psychiatric: alert, other (oriented to self and place. She is not keeping with good eye contact and gives very bizarre answers. For this reason she is not willing to be closely examined and will not allow us to listen to her heart or lungs this time.) Progress/Results/Core Measures Results/Orders My Orders Orders - JAYESH BARNETT Ekg Tracing (12/02/16 21:26) Vital Signs/I&O Vital Sign - Last 12Hours 12/02/16 21:30 Temp 98.2 Pulse 94 Resp 18 B/P (MAP) 141/85 Pulse Ox 100 Progress Note #1: Time: 21:36 Progress Note Patient here for medical clearance to go inpatient psych. She is getting very bizarre answers and is not willing to be closely examined. However she is just examined this afternoon and we will refer back to that note as well as laboratory is obtained that time. We'll go ahead and get an EKG today. It is very likely she will benefit from an inpatient psych evaluation and management. She already has a room. Progress Note #2: Time: 22:07 Progress Note [facility] is full. [facility] is full. [facility] is full Progress Note #3: Time: 22:37 Progress Note Unable to find placement for her tonight. The mental health officer has spoke with the patient and the patient agrees to be put up in a hotel room tonight and they will work on placement for her in the morning. ECG Initial ECG Impression Date: Dec 02, 2016 Initial ECG Impression Time: 21:37 Initial ECG Rhythm: Normal Sinus Initial ECG Intervals: Normal Initial ECG Impression: Normal Initial ECG Comparisson: No Previous ECG Available Comment No ST wave elevation or depression Departure Impression Impression: Primary Impression: History of schizophrenia Additional Impression: SUICIDAL IDEATION Disposition: 01 HOME, SELF-CARE Condition: Stable Departure-Patient Inst. Decision time for Depature: 22:38 Referrals: ANYA YWNN MD (PCP/Family) Primary Care Physician Patient Instructions: SUICIDE CONTRACT Add. Discharge Instructions: If you're feeling suicidal tonight he should return to the ER otherwise plan on following up with [facility] officer in the morning for placement inpatient psychiatry. All discharge instructions reviewed with patient and/or family. Voiced understanding. Copy Copies To 1: SHERON HUNTER TITUS J Dec 02, 2016 21:37
[2016-12-02 22:40] VITALS: BP 0/0
== END 2016-12-02 22:40 | disposition home or self-care (01) ==
LOC: EDUNIT# 21:14 → ER 21:16
DX: R45.851 Suicidal ideations (principal); F20.9 Schizophrenia, unspecified; F41.9 Anxiety disorder, unspecified; F31.9 Bipolar disorder, unspecified; Z91.5 Personal history of self-harm
CPT/HCPCS: 93005

== ENCOUNTER 2016-12-13 14:40 | Emergency (ER) | payer MEDICARE ==
[~2016-12-13] VITALS: Ht 162.6 cm; Wt 108.9 kg
--- OUTSIDE RECORDS SUMMARY | 2016-12-13 14:45 | XMS REPORT | Clinical Summary ---
Author Author [facility] Address Unknown Phone Unavailable Care Team Providers Care Head Tennis Professional Name Role Phone PCP Unavailable Source Comments Some departments are not documenting in the electronic medical record. If you do not see the information that you expected, contact Release of Information in the Health Information Management department at [phone] for further assistance in locating additional records.[facility] Allergies Active Allergy Reactions Severity Noted Date Comments Ziprasidone Hcl SEIZURES High 02/08/2015 Buspirone UNKNOWN 10/19/2013 Intolerance per pt Erythromycin RASH 10/19/2013 Risperidone RASH 10/19/2013 Current Medications No known medications Active Problems [...] of 32.4 3 times a week beer Sex Assigned at Date Recorded Not on file Last Filed Vital Signs Vital Sign Reading Time Taken Blood Pressure 151/96 03/10/2016 10:09 PM GUEST HOUSE MANAGER Pulse 101 02/08/2015 2:31 AM CDT Temperature 36.3 C (97.3 F) 03/10/2016 10:09 PM GUEST HOUSE MANAGER Respiratory Rate - - Oxygen Saturation 96% 03/10/2016 10:09 PM GUEST HOUSE MANAGER Inhaled Oxygen - - Concentration Weight 72.8 kg (160 lb 7.9 oz) 03/10/2016 10:09 PM GUEST HOUSE MANAGER Height 162.6 cm (5' 4") 03/10/2016 10:09 PM GUEST HOUSE MANAGER Body Mass Index 27.55 03/10/2016 10:09 PM GUEST HOUSE MANAGER Plan of Treatment Health Maintenance Due Date Last Done Comments PHYSICAL (COMPREHENSIVE) 1992 EXAM PERTUSSIS VACCINE 1996 TETANUS VACCINE 2002 CERVICAL CANCER SCREENING 2015 INFLUENZA VACCINE 01/01/2017 Results Not on filefrom Last 3 Months
[2016-12-13 15:12] LABS: BASOPHILS % (AUTO) 0 % (0-10); EOSINOPHILS # (AUTO) 0.3 10^3/uL (0.0-0.3); EOSINOPHILS % (AUTO) 2 % (0-10); LYMPHOCYTES # (AUTO) 2.4 X 10^3 (1.0-4.0); LYMPHOCYTES % (AUTO) 17 % (12-44); MEAN CORPUSCULAR HEMOGLOBIN 29 PG (25-34); MEAN CORPUSCULAR HGB CONC 34 G/DL (32-36); MEAN CORPUSCULAR VOLUME 87 FL (80-99); MEAN PLATELET VOLUME 10.7 FL (7.4-10.4); MONOCYTES % (AUTO) 7 % (0-12); NEUTROPHILS # (AUTO) 10.1 X 10^3 (1.8-7.8); NEUTROPHILS % (AUTO) 73 % (42-75); PLATELET COUNT 333 10^3/uL (130-400); RED CELL DISTRIBUTION WIDTH 14.3 % (10.0-14.5); WHITE BLOOD COUNT 13.8 10^3/uL (4.3-11.0)
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
[2016-12-13 15:25] LABS: BILIRUBIN,URINE NEGATIVE (NEGATIVE); KETONES,URINE 3+ (NEGATIVE); LEUKOCYTE ESTERASE ,URINE 1+ (NEGATIVE); NITRITE,URINE NEGATIVE (NEGATIVE); PH,URINE 6 (5-9); PROTEIN,URINE 1+ (NEGATIVE); UROBILINOGEN,URINE 1 MG/DL (NORMAL)
[2016-12-13 15:27] LABS: ALANINE AMINOTRANSFERASE 15 U/L (0-55); ALBUMIN 4.1 GM/DL (3.2-4.5); ALCOHOL < 10 MG/DL (<10); ANION GAP 12 MMOL/L (5-14); ASPARTATE AMINO TRANSFERASE 16 U/L (5-34); BILIRUBIN,TOTAL 0.3 MG/DL (0.1-1.0); BLOOD UREA NITROGEN 11 MG/DL (7-18); BUN/CREATININE RATIO 16; CALCIUM 9.1 MG/DL (8.5-10.1); CARBON DIOXIDE 21 MMOL/L (21-32); CHLORIDE 104 MMOL/L (98-107); CREATININE SERUM 0.68 MG/DL (0.60-1.30); GFR ESTIMATED > 60; GLUCOSE 117 MG/DL (70-105); POTASSIUM 3.7 MMOL/L (3.6-5.0); SALICYLATE < 5.0 MG/DL (5.0-20.0); SODIUM 137 MMOL/L (135-145); TOTAL PROTEIN 7.4 GM/DL (6.4-8.2)
[2016-12-13 15:33] LABS: WBC,URINE 0-2 /HPF
[2016-12-13 15:40] LABS: ACETAMINOPHEN < 10 UG/ML (10-30)
[2016-12-13] MEDS ORDERED: OLANZapine 5 MG ODT (ZyPREXA ZYDIS) ONE (17:01)
[2016-12-13 17:10] VITALS: BP 132/87
[2016-12-13] MEDS ORDERED: OLANZapine 5 MG (ZyPREXA) TAB PO ONE (17:15)
== END 2016-12-13 17:10 | disposition home or self-care (01) ==
LOC: EDUNIT# 14:40 → ER 14:41
DX: R11.2 Nausea with vomiting, unspecified (principal); F20.9 Schizophrenia, unspecified; F14.10 Cocaine abuse, uncomplicated; F15.10 Other stimulant abuse, uncomplicated; F17.210 Nicotine dependence, cigarettes, uncomplicated; Z90.49 Acquired absence of other specified parts of digestive tract; Z87.59 Personal history of other complications of pregnancy, childbirth and the puerperium
CPT/HCPCS: 36415; 80053; 80306; 80320; 80329; 81000; 85025; 93005

== ENCOUNTER 2016-12-13 18:54 | Emergency (ER) | payer MEDICARE ==
[~2016-12-13] VITALS: Ht 170.2 cm; Wt 59.0 kg
--- OUTSIDE RECORDS SUMMARY | 2016-12-13 19:00 | XMS REPORT | Clinical Summary ---
Author Author [facility] Organization [facility] Address Unknown Phone Unavailable Care Team Providers Care Dishwashing Machine Repairer Name Role Phone PCP Unavailable Source Comments Some departments are not documenting in the electronic medical record. If you do not see the information that you expected, contact Release of Information in the Health Information Management department at [phone] for further assistance in locating additional records.[facility] Allergies Active Allergy Reactions Severity Noted [...] Taken Blood Pressure 151/96 03/10/2016 10:09 PM BATON TWIRLER Pulse 101 02/08/2015 2:31 AM CDT Temperature 36.3 C (97.3 F) 03/10/2016 10:09 PM BATON TWIRLER Respiratory Rate - - Oxygen Saturation 96% 03/10/2016 10:09 PM BATON TWIRLER Inhaled Oxygen - - Concentration Weight 72.8 kg (160 lb 7.9 oz) 03/10/2016 10:09 PM BATON TWIRLER Height 162.6 cm (5' 4") 03/10/2016 10:09 PM BATON TWIRLER Body Mass Index 27.55 03/10/2016 10:09 PM BATON TWIRLER Plan of Treatment Health Maintenance Due Date Last Done Comments PHYSICAL (COMPREHENSIVE) 1992 EXAM PERTUSSIS VACCINE 1996 TETANUS VACCINE 2002 CERVICAL CANCER SCREENING 2015 INFLUENZA VACCINE 01/01/2017 Results Not on filefrom Last 3 Months
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
[2016-12-14] MEDS ORDERED: NS IV 500 ML 500 ML IV ONE (00:05)
[2016-12-14 00:30] LABS: BASOPHILS % (AUTO) 0 % (0-10); EOSINOPHILS # (AUTO) 0.7 10^3/uL (0.0-0.3); EOSINOPHILS % (AUTO) 6 % (0-10); LYMPHOCYTES # (AUTO) 3.9 X 10^3 (1.0-4.0); LYMPHOCYTES % (AUTO) 33 % (12-44); MEAN CORPUSCULAR HEMOGLOBIN 29 PG (25-34); MEAN CORPUSCULAR HGB CONC 33 G/DL (32-36); MEAN CORPUSCULAR VOLUME 88 FL (80-99); MEAN PLATELET VOLUME 10.3 FL (7.4-10.4); MONOCYTES # (AUTO) 0.7 X 10^3 (0.0-1.0); MONOCYTES % (AUTO) 6 % (0-12); NEUTROPHILS # (AUTO) 6.7 X 10^3 (1.8-7.8); NEUTROPHILS % (AUTO) 56 % (42-75); PLATELET COUNT 351 10^3/uL (130-400); RED BLOOD COUNT 5.03 10^6/uL (4.35-5.85); RED CELL DISTRIBUTION WIDTH 14.6 % (10.0-14.5); WHITE BLOOD COUNT 11.9 10^3/uL (4.3-11.0)
[2016-12-14 00:50] LABS: ALANINE AMINOTRANSFERASE 14 U/L (0-55); ALBUMIN 4.3 GM/DL (3.2-4.5); ANION GAP 13 MMOL/L (5-14); ASPARTATE AMINO TRANSFERASE 18 U/L (5-34); BILIRUBIN,TOTAL 0.3 MG/DL (0.1-1.0); BLOOD UREA NITROGEN 13 MG/DL (7-18); BUN/CREATININE RATIO 18; CALCIUM 9.4 MG/DL (8.5-10.1); CARBON DIOXIDE 22 MMOL/L (21-32); CHLORIDE 106 MMOL/L (98-107); CREATININE SERUM 0.73 MG/DL (0.60-1.30); GFR ESTIMATED > 60; GLUCOSE 119 MG/DL (70-105); MAGNESIUM 2.3 MG/DL (1.8-2.4); POTASSIUM 4.2 MMOL/L (3.6-5.0); SODIUM 141 MMOL/L (135-145); TOTAL PROTEIN 7.8 GM/DL (6.4-8.2)
[2016-12-14 01:02] VITALS: BP 114/80
== END 2016-12-14 01:03 | disposition home or self-care (01) ==
LOC: EDUNIT# 18:54 → ER 18:56
DX: R53.83 Other fatigue (principal); R11.2 Nausea with vomiting, unspecified; F20.9 Schizophrenia, unspecified; F14.10 Cocaine abuse, uncomplicated; F15.10 Other stimulant abuse, uncomplicated; F17.210 Nicotine dependence, cigarettes, uncomplicated; Z62.810 Personal history of physical and sexual abuse in childhood; Z90.49 Acquired absence of other specified parts of digestive tract; Z87.59 Personal history of other complications of pregnancy, childbirth and the puerperium
CPT/HCPCS: 36415; 80053; 83735; 85025; 96360

== ENCOUNTER 2016-12-16 13:02 | Observation (INO) | payer MEDICARE ==
[~2016-12-16] VITALS: Ht 162.6 cm; Wt 63.5 kg
[2016-12-16 20:00] VITALS: BP 132/69
[2016-12-16 20:17] LABS: BASOPHILS % (AUTO) 0 % (0-10); EOSINOPHILS # (AUTO) 0.5 10^3/uL (0.0-0.3); EOSINOPHILS % (AUTO) 4 % (0-10); LYMPHOCYTES # (AUTO) 2.7 X 10^3 (1.0-4.0); LYMPHOCYTES % (AUTO) 25 % (12-44); MEAN CORPUSCULAR HEMOGLOBIN 29 PG (25-34); MEAN CORPUSCULAR HGB CONC 33 G/DL (32-36); MEAN CORPUSCULAR VOLUME 89 FL (80-99); MEAN PLATELET VOLUME 10.4 FL (7.4-10.4); MONOCYTES # (AUTO) 0.9 X 10^3 (0.0-1.0); MONOCYTES % (AUTO) 8 % (0-12); NEUTROPHILS # (AUTO) 6.9 X 10^3 (1.8-7.8); NEUTROPHILS % (AUTO) 62 % (42-75); PLATELET COUNT 344 10^3/uL (130-400); RED BLOOD COUNT 4.52 10^6/uL (4.35-5.85); RED CELL DISTRIBUTION WIDTH 14.7 % (10.0-14.5)
[2016-12-16 20:46] LABS: ALANINE AMINOTRANSFERASE 14 U/L (0-55); ALBUMIN 3.9 GM/DL (3.2-4.5); ANION GAP 9 MMOL/L (5-14); ASPARTATE AMINO TRANSFERASE 15 U/L (5-34); BILIRUBIN,TOTAL 0.1 MG/DL (0.1-1.0); BLOOD UREA NITROGEN 8 MG/DL (7-18); BUN/CREATININE RATIO 13; CALCIUM 8.9 MG/DL (8.5-10.1); CARBON DIOXIDE 25 MMOL/L (21-32); CHLORIDE 108 MMOL/L (98-107); CREATININE SERUM 0.62 MG/DL (0.60-1.30); GFR ESTIMATED > 60; GLUCOSE 95 MG/DL (70-105); POTASSIUM 4.3 MMOL/L (3.6-5.0); SODIUM 142 MMOL/L (135-145); TOTAL PROTEIN 6.8 GM/DL (6.4-8.2)
[2016-12-16] MEDS ORDERED: NICOTINE 21 MG (NICODERM) PATCH ONE (21:13)
[2016-12-16] MEDS ORDERED: LORazepam 1 MG (ATIVAN) TAB PO PRN (21:15)
[2016-12-16] MEDS ORDERED: IBUPROFEN 600 MG (MOTRIN) TAB PO PRN (21:15)
[2016-12-17 04:00] VITALS: BP 128/59
[2016-12-17 08:00] VITALS: BP 129/83
[2016-12-17] MEDS: NICOTINE 21 MG (NICODERM) PATCH TD SCH (09:26)
[2016-12-17] MEDS: NICOTINE PATCH REMOVAL TP SCH (09:27)
--- OUTSIDE RECORDS SUMMARY | 2016-12-17 11:34 | XMS REPORT | Clinical Summary ---
Author Author [facility] Organization [facility] Address Unknown Phone Unavailable Care Team Providers Care County Extension Agent Name Role Phone PCP Unavailable Source Comments Some departments are not documenting in the electronic medical record. If you do not see the information that you expected, contact Release of Information in the Health Information Management department at [phone] for further assistance in locating additional records.[facility] Allergies Active Allergy Reactions Severity Noted Date [...] Taken Blood Pressure 151/96 03/10/2016 10:09 PM LIFE INSURANCE AGENT Pulse 101 02/08/2015 2:31 AM CDT Temperature 36.3 C (97.3 F) 03/10/2016 10:09 PM LIFE INSURANCE AGENT Respiratory Rate - - Oxygen Saturation 96% 03/10/2016 10:09 PM LIFE INSURANCE AGENT Inhaled Oxygen - - Concentration Weight 72.8 kg (160 lb 7.9 oz) 03/10/2016 10:09 PM LIFE INSURANCE AGENT Height 162.6 cm (5' 4") 03/10/2016 10:09 PM LIFE INSURANCE AGENT Body Mass Index 27.55 03/10/2016 10:09 PM LIFE INSURANCE AGENT Plan of Treatment Health Maintenance Due Date Last Done Comments PHYSICAL (COMPREHENSIVE) 1992 EXAM PERTUSSIS VACCINE 1996 TETANUS VACCINE 2002 CERVICAL CANCER SCREENING 2015 INFLUENZA VACCINE 01/01/2017 Results Not on filefrom Last 3 Months
[2016-12-17 12:00] VITALS: BP 142/83
[2016-12-17] MEDS ORDERED: LORazepam 1 MG (ATIVAN) TAB PO NR (15:19)
[2016-12-17 15:43] VITALS: BP 133/76
[2016-12-17] MEDS ORDERED: HALOPERIDOL 5 MG/ML (HALDOL) AMP IM NR (17:30)
--- NOTE | 2016-12-17 17:51 | Discharge Instructions ---
Discharge Inst-[facility] Discharge Medications New, Converted or Re-Newed RX: Other Medication Profile: No Active Prescriptions or Reported Meds Patient Instructions Goal/Follow Up Appt: You will need to follow with Dr Estrada when you are discharged from inpatient psych Activity & Diet Discharge Diet: No Restrictions Activity as Tolerated: Yes Copy Copies To 1: ANYA WYNN MD, HOLLY R MD Dec 17, 2016 17:51
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
[2016-12-17] MEDS ORDERED: HALOPERIDOL 5 MG/ML (HALDOL) AMP IM PRN (19:30)
[2016-12-18 04:30] VITALS: BP 125/85
[2016-12-18 08:37] VITALS: BP 129/89
[2016-12-18] MEDS: NICOTINE PATCH REMOVAL TP SCH (08:41)
[2016-12-18] MEDS: NICOTINE 21 MG (NICODERM) PATCH TD SCH (08:41)
[2016-12-18] MEDS ORDERED: LORazepam 1 MG (ATIVAN) TAB PO NR (11:29)
[2016-12-18 12:04] VITALS: BP 134/75
--- OUTSIDE RECORDS SUMMARY | 2016-12-21 13:16 | XMS REPORT | Clinical Summary ---
Author Author [facility] Organization [facility] Address Unknown Phone Unavailable Care Team Providers Care Roller Varnisher Name Role Phone PCP Unavailable Source Comments Some departments are not documenting in the electronic medical record. If you do not see the information that you expected, contact Release of Information in the Health Information Management department at [phone] for further assistance in locating additional records.[facility] Allergies Active Allergy Reactions Severity Noted Date [...] Taken Blood Pressure 151/96 03/10/2016 10:09 PM SISTER SUPERIOR Pulse 101 02/08/2015 2:31 AM CDT Temperature 36.3 C (97.3 F) 03/10/2016 10:09 PM SISTER SUPERIOR Respiratory Rate - - Oxygen Saturation 96% 03/10/2016 10:09 PM SISTER SUPERIOR Inhaled Oxygen - - Concentration Weight 72.8 kg (160 lb 7.9 oz) 03/10/2016 10:09 PM SISTER SUPERIOR Height 162.6 cm (5' 4") 03/10/2016 10:09 PM SISTER SUPERIOR Body Mass Index 27.55 03/10/2016 10:09 PM SISTER SUPERIOR Plan of Treatment Health Maintenance Due Date Last Done Comments PHYSICAL (COMPREHENSIVE) 1992 EXAM PERTUSSIS VACCINE 1996 TETANUS VACCINE 2002 CERVICAL CANCER SCREENING 2015 INFLUENZA VACCINE 01/01/2017 Results Not on filefrom Last 3 Months
== END 2016-12-18 12:30 ==
LOC: EDSTATUS 13:02 → 4TH 18:45 → UNDOADMIN 18:45 → 4TH 18:45 → UNDOADMIN 18:53 → 4TH 18:53 → UNDODISIN 12-18 12:30
PROVIDERS: ADMIT Family Medicine; ATTEND Family Medicine
DX: R45.851 Suicidal ideations (principal); R45.850 Homicidal ideations; R44.0 Auditory hallucinations; R44.1 Visual hallucinations; F17.210 Nicotine dependence, cigarettes, uncomplicated
CPT/HCPCS: 36415; 80053; 85025; 99211; G0378

== ENCOUNTER 2017-02-04 19:13 | Emergency (ER) | payer MEDICARE, MEDICAID ==
[~2017-02-04] VITALS: Ht 162.6 cm; Wt 63.5 kg
[2017-02-04] MEDS ORDERED: DIVA500T7 (19:22)
[2017-02-04] MEDS ORDERED: OLAN10TA19 (19:22)
[2017-02-04] MEDS ORDERED: HYDR-700 (19:22)
--- OUTSIDE RECORDS SUMMARY | 2017-02-04 19:29 | XMS REPORT ---
Author [facility] Address [address] [place] [address] Care Team Providers Care Senior Insight Manager International Name Role Phone CHARLES HELLER Unavailable PROBLEMS Type Condition ICD9-CM Code [id number] Code Onset Dates Condition Status SNOMED Code Problem General counseling for prescription of oral contraceptives V25.01 Active 335993999940480 Problem Unspecified contraceptive management V25.9 Active 807626477 Problem DTAP TEST V06.1 Active Problem Routine gynecological examination V72.31 Active 079779627091295 Problem PPV23 (PNEUMOVAX) DX V03.82 Active Problem Contusion of lower leg 924.10 Active 54288048 Problem Urinary frequency 788.41 Active 903183377 Problem Cough 786.2 Active 41878256 Problem Other malaise and fatigue 780.79 Active 138546966 Problem Uncomplicated opioid dependence F11.20 Active 31954429 Problem Fever, unspecified 780.60 Active 577134628 Problem Mood disorder F39 Active 86300827 Problem Other convulsions 780.39 Active 78452899 Problem Unspecified psychosis F29 Active 85775403 Problem Cannabis dependence F12.20 Active 08926248 Problem Other stimulant dependence, 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 Active 276898425 Problem 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 Active 21072316 Problem Personality disorder, unspecified F60.9 Active 97583330 Problem Unspecified backache 724.5 Active 705074139 Problem Other atopic dermatitis and related conditions 691.8 Active 879247205 Problem Pain in joint, ankle and foot 719.47 Active 375239799 Problem Substance abuse F19.10 Active 18328768 Problem Personality disorder F60.9 Active 65565002 Problem Borderline personality disorder F60.3 Active 14151011 Problem Alcohol abuse F10.10 Active 83008042 Problem Screening for malignant neoplasm of the cervix V76.2 Active 752731989 Problem Acute upper respiratory infections of unspecified site 465.9 Active 68763016 Problem Unspecified breast screening V76.10 Active 822200240 Problem Acute pharyngitis 462 Active 839293116 Problem Unspecified disorder of menstruation and other abnormal bleeding from female genital tract 626.9 Active 004660260 Problem Unspecified vaginitis and vulvovaginitis 616.10 Active 228360415 Problem Obesity, unspecified 278.00 Active 956789742 Problem Other bipolar disorders F31.89 Active 84197890 Problem Acute sinusitis, unspecified 461.9 Active 04647793 Problem Unspecified personality disorder 301.9 Active 33465957 ALLERGIES No Information SOCIAL HISTORY Never Assessed PLAN OF CARE VITAL SIGNS MEDICATIONS Unknown Medications RESULTS No Results PROCEDURES No Known procedures IMMUNIZATIONS No Known Immunizations MEDICAL (GENERAL) HISTORY Type Description Date Hospitalization History 2 [facility] 03/2016
--- OUTSIDE RECORDS SUMMARY | 2017-02-04 19:29 | XMS REPORT | Clinical Summary ---
Author Author [facility] Organization [facility] Address Unknown Phone Unavailable Care Team Providers Care Wet Primer Powder Blender Name Role Phone PCP Unavailable Source Comments Some departments are not documenting in the electronic medical record. If you do not see the information that you expected, contact Release of Information in the Health Information Management department at [phone] for further assistance in locating additional records.[facility] Allergies Active Allergy Reactions Severity Noted [...] Taken Blood Pressure 151/96 03/10/2016 10:09 PM JOY LOADER Pulse 101 02/08/2015 2:31 AM CDT Temperature 36.3 C (97.3 F) 03/10/2016 10:09 PM JOY LOADER Respiratory Rate - - Oxygen Saturation 96% 03/10/2016 10:09 PM JOY LOADER Inhaled Oxygen - - Concentration Weight 72.8 kg (160 lb 7.9 oz) 03/10/2016 10:09 PM JOY LOADER Height 162.6 cm (5' 4") 03/10/2016 10:09 PM JOY LOADER Body Mass Index 27.55 03/10/2016 10:09 PM JOY LOADER Plan of Treatment Health Maintenance Due Date Last Done Comments PHYSICAL (COMPREHENSIVE) 1992 EXAM PERTUSSIS VACCINE 1996 TETANUS VACCINE 2002 CERVICAL CANCER SCREENING 2015 INFLUENZA VACCINE 01/31/2017 Results Not on filefrom Last 3 Months
--- OUTSIDE RECORDS SUMMARY | 2017-02-04 19:29 | XMS REPORT ---
Author Author SHARON ANDERSON Organization [facility] Address [address] [place] [address] Care Team Providers Care Bridal Stylist Sales Consultant Name Role Phone MONICA HSARON Unavailable PROBLEMS Type Condition ICD9-CM Code [id number] Code Onset Dates Condition Status SNOMED Code Problem General counseling for prescription of oral contraceptives V25.01 Active 417138241740285 Problem Unspecified contraceptive management V25.9 Active 553095173 Problem DTAP TEST V06.1 Active Problem Routine gynecological examination V72.31 Active 869104692657746 Problem PPV23 (PNEUMOVAX) DX V03.82 Active Problem Contusion of lower leg 924.10 Active 97304081 Problem Urinary frequency 788.41 Active 737734575 Problem Cough 786.2 Active 42807990 Problem Other malaise and fatigue 780.79 Active 594370463 Problem Uncomplicated opioid dependence F11.20 Active 59603651 Problem Fever, unspecified 780.60 Active 395439824 Problem Mood disorder F39 Active 92434758 Problem Other convulsions 780.39 Active 84784194 Problem Unspecified psychosis F29 Active 37482388 Problem Cannabis dependence F12.20 Active 93598780 Problem Other stimulant dependence, 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 Active 301173114 Problem 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 Active 33348719 Problem Personality disorder, unspecified F60.9 Active 36160510 Problem Unspecified backache 724.5 Active 335636792 Problem Other atopic dermatitis and related conditions 691.8 Active 506492451 Problem Pain in joint, ankle and foot 719.47 Active 010708098 Problem Substance abuse F19.10 Active 90895806 Problem Personality disorder F60.9 Active 38064760 Problem Borderline personality disorder F60.3 Active 00715414 Problem Alcohol abuse F10.10 Active 43975367 Problem Screening for malignant neoplasm of the cervix V76.2 Active 867072353 Problem Acute upper respiratory infections of unspecified site 465.9 Active 91650873 Problem Unspecified breast screening V76.10 Active 696774496 Problem Acute pharyngitis 462 Active 993797068 Problem Unspecified disorder of menstruation and other abnormal bleeding from female genital tract 626.9 Active 462470014 Problem Unspecified vaginitis and vulvovaginitis 616.10 Active 788206870 Problem Obesity, unspecified 278.00 Active 115862330 Problem Other bipolar disorders F31.89 Active 20918605 Problem Acute sinusitis, unspecified 461.9 Active 21751623 Problem Unspecified personality disorder 301.9 Active 15686590 ALLERGIES Unknown Allergies SOCIAL HISTORY No smoking Hx information available PLAN OF CARE Activity Details Follow Up Next available Reason:depression VITAL SIGNS MEDICATIONS Unknown Medications RESULTS No Results PROCEDURES Procedure Date Ordered Related Diagnosis Body Site Psychotherapy, patient &/family, 30 minutes, established patient May 29, 2016 IMMUNIZATIONS No Known Immunizations
--- OUTSIDE RECORDS SUMMARY | 2017-02-04 19:29 | XMS REPORT ---
Author Author SHARON ANDERSON Organization [facility] Address [address] [place] [address] Care Team Providers Care Trommel Tender Name Role Phone SHARON ANDERSON Unavailable PROBLEMS Type Condition ICD9-CM Code [id number] Code Onset Dates Condition Status SNOMED Code Problem General counseling for prescription of oral contraceptives V25.01 Active 678479708970864 Problem Unspecified contraceptive management V25.9 Active 898889522 Problem DTAP TEST V06.1 Active Problem Routine gynecological examination V72.31 Active 153879667277560 Problem PPV23 (PNEUMOVAX) DX V03.82 Active Problem Contusion of lower leg 924.10 Active 71218393 Problem Urinary frequency 788.41 Active 485712498 Problem Cough 786.2 Active 33645004 Problem Other malaise and fatigue 780.79 Active 294440519 Problem Uncomplicated opioid dependence F11.20 Active 13089744 Problem Fever, unspecified 780.60 Active 090567554 Problem Mood disorder F39 Active 01824320 Problem Other convulsions 780.39 Active 01809441 Problem Unspecified psychosis F29 Active 15049013 Problem Cannabis dependence F12.20 Active 52117280 Problem Other stimulant dependence, 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 Active 678718631 Problem 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 Active 77775950 Problem Personality disorder, unspecified F60.9 Active 49037258 Problem Unspecified backache 724.5 Active 209281875 Problem Other atopic dermatitis and related conditions 691.8 Active 588896267 Problem Pain in joint, ankle and foot 719.47 Active 009966442 Problem Substance abuse F19.10 Active 07089297 Problem Personality disorder F60.9 Active 95929709 Problem Borderline personality disorder F60.3 Active 77402087 Problem Alcohol abuse F10.10 Active 83950369 Problem Screening for malignant neoplasm of the cervix V76.2 Active 864452615 Problem Acute upper respiratory infections of unspecified site 465.9 Active 93457878 Problem Unspecified breast screening V76.10 Active 722158015 Problem Acute pharyngitis 462 Active 963885605 Problem Unspecified disorder of menstruation and other abnormal bleeding from female genital tract 626.9 Active 275455312 Problem Unspecified vaginitis and vulvovaginitis 616.10 Active 165143525 Problem Obesity, unspecified 278.00 Active 731210089 Problem Other bipolar disorders F31.89 Active 27156158 Problem Acute sinusitis, unspecified 461.9 Active 75027330 Problem Unspecified personality disorder 301.9 Active 30440844 ALLERGIES No Information SOCIAL HISTORY Never Assessed PLAN OF CARE Activity Details Follow Up 1 Week Reason:mood VITAL SIGNS MEDICATIONS Unknown Medications RESULTS No Results PROCEDURES Procedure Date Ordered Result Body Site Psychotherapy, patient &/family, 30 minutes, established patient July 08, 2016 IMMUNIZATIONS No Known Immunizations MEDICAL (GENERAL) HISTORY Type Description Date Hospitalization History 2 [facility] 03/2016
--- OUTSIDE RECORDS SUMMARY | 2017-02-04 19:30 | XMS REPORT ---
Author Author [facility] Address [address] [place] [address] Care Team Providers Care Garment Form Assembler Name Role Phone CHARLES HELLER Unavailable PROBLEMS Type Condition ICD9-CM Code [id number] Code Onset Dates Condition Status SNOMED Code Problem General counseling for prescription of oral contraceptives V25.01 Active 620312985853192 Problem Unspecified contraceptive management V25.9 Active 507861397 Problem DTAP TEST V06.1 Active Problem Routine gynecological examination V72.31 Active 067582154413511 Problem PPV23 (PNEUMOVAX) DX V03.82 Active Problem Contusion of lower leg 924.10 Active 04699503 Problem Urinary frequency 788.41 Active 324712055 Problem Cough 786.2 Active 25827941 Problem Other malaise and fatigue 780.79 Active 989609297 Problem Uncomplicated opioid dependence F11.20 Active 33557379 Problem Fever, unspecified 780.60 Active 201408845 Problem Mood disorder F39 Active 75946702 Problem Other convulsions 780.39 Active 57939127 Problem Unspecified psychosis F29 Active 95827617 Problem Cannabis dependence F12.20 Active 08225568 Problem Other stimulant dependence, 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 Active 520678053 Problem 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 Active 29637435 Problem Personality disorder, unspecified F60.9 Active 54043628 Problem Unspecified backache 724.5 Active 989476161 Problem Other atopic dermatitis and related conditions 691.8 Active 205882874 Problem Pain in joint, ankle and foot 719.47 Active 720505180 Problem Substance abuse F19.10 Active 94403729 Problem Personality disorder F60.9 Active 20622475 Problem Borderline personality disorder F60.3 Active 65954844 Problem Alcohol abuse F10.10 Active 07588418 Problem Screening for malignant neoplasm of the cervix V76.2 Active 165770564 Problem Acute upper respiratory infections of unspecified site 465.9 Active 19854278 Problem Unspecified breast screening V76.10 Active 332785897 Problem Acute pharyngitis 462 Active 627667505 Problem Unspecified disorder of menstruation and other abnormal bleeding from female genital tract 626.9 Active 549131966 Problem Unspecified vaginitis and vulvovaginitis 616.10 Active 601128544 Problem Obesity, unspecified 278.00 Active 653856401 Problem Other bipolar disorders F31.89 Active 64023473 Problem Acute sinusitis, unspecified 461.9 Active 12761935 Problem Unspecified personality disorder 301.9 Active 56156601 ALLERGIES No Information SOCIAL HISTORY Never Assessed PLAN OF CARE VITAL SIGNS MEDICATIONS Unknown Medications RESULTS No Results PROCEDURES No Known procedures IMMUNIZATIONS No Known Immunizations MEDICAL (GENERAL) HISTORY Type Description Date Hospitalization History 2 [facility] 03/2016
--- OUTSIDE RECORDS SUMMARY | 2017-02-04 19:30 | XMS REPORT ---
Author Author SHARON ANDERSON Organization [facility] Address [address] [place] [address] Care Team Providers Care Deliverer Pharmacy Name Role Phone MONICA SHARON Unavailable PROBLEMS Type Condition ICD9-CM Code [id number] Code Onset Dates Condition Status SNOMED Code Problem General counseling for prescription of oral contraceptives V25.01 Active 075224795114102 Problem Unspecified contraceptive management V25.9 Active 158011138 Problem DTAP TEST V06.1 Active Problem Routine gynecological examination V72.31 Active 158557850184170 Problem PPV23 (PNEUMOVAX) DX V03.82 Active Problem Contusion of lower leg 924.10 Active 15199634 Problem Urinary frequency 788.41 Active 677047161 Problem Cough 786.2 Active 77401826 Problem Other malaise and fatigue 780.79 Active 150877981 Problem Uncomplicated opioid dependence F11.20 Active 76754509 Problem Fever, unspecified 780.60 Active 657967586 Problem Mood disorder F39 Active 69840953 Problem Other convulsions 780.39 Active 96781029 Problem Unspecified psychosis F29 Active 68937699 Problem Cannabis dependence F12.20 Active 85749119 Problem Other stimulant dependence, 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 Active 786995416 Problem 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 Active 77041481 Problem Personality disorder, unspecified F60.9 Active 92248224 Problem Unspecified backache 724.5 Active 543096465 Problem Other atopic dermatitis and related conditions 691.8 Active 978671634 Problem Pain in joint, ankle and foot 719.47 Active 559678710 Problem Substance abuse F19.10 Active 03672570 Problem Personality disorder F60.9 Active 28919078 Problem Borderline personality disorder F60.3 Active 79772615 Problem Alcohol abuse F10.10 Active 58147604 Problem Screening for malignant neoplasm of the cervix V76.2 Active 490002367 Problem Acute upper respiratory infections of unspecified site 465.9 Active 91721006 Problem Unspecified breast screening V76.10 Active 155486411 Problem Acute pharyngitis 462 Active 422538133 Problem Unspecified disorder of menstruation and other abnormal bleeding from female genital tract 626.9 Active 842402418 Problem Unspecified vaginitis and vulvovaginitis 616.10 Active 605378252 Problem Obesity, unspecified 278.00 Active 695780244 Problem Other bipolar disorders F31.89 Active 64560841 Problem Acute sinusitis, unspecified 461.9 Active 71760496 Problem Unspecified personality disorder 301.9 Active 54522625 ALLERGIES No Information SOCIAL HISTORY Never Assessed PLAN OF CARE Activity Details Follow Up Next available Reason:mood VITAL SIGNS MEDICATIONS Unknown Medications RESULTS No Results PROCEDURES Procedure Date Ordered Result Body Site Psychotherapy, patient &/family, 30 minutes, established patient Jun 26, 2016 IMMUNIZATIONS No Known Immunizations MEDICAL (GENERAL) HISTORY Type Description Date Hospitalization History [facility]2016
--- OUTSIDE RECORDS SUMMARY | 2017-02-04 19:31 | XMS REPORT ---
Author Author [facility] Address [address] [place] [address] Care Team Providers Care Ground Support Equipment Assembler Name Role Phone CHARLES HELLER Unavailable PROBLEMS Type Condition ICD9-CM Code QJO09-SB Code Onset Dates Condition Status SNOMED Code Problem General counseling for prescription of oral contraceptives V25.01 Active 808370374748469 Problem Unspecified contraceptive management V25.9 Active 711791248 Problem DTAP TEST V06.1 Active Problem Routine gynecological examination V72.31 Active 338649516822693 Problem PPV23 (PNEUMOVAX) DX V03.82 Active Problem Contusion of lower leg 924.10 Active 79995464 Problem Urinary frequency 788.41 Active 938761387 Problem Cough 786.2 Active 83535847 Problem Other malaise and fatigue 780.79 Active 213248723 Problem Uncomplicated opioid dependence F11.20 Active 57219736 Problem Fever, unspecified 780.60 Active 995518385 Problem Mood disorder F39 Active 24139324 Problem Other convulsions 780.39 Active 73655900 Problem Unspecified psychosis F29 Active 12378714 Problem Cannabis dependence F12.20 Active 99005510 Problem Other stimulant dependence, 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 Active 969563752 Problem 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 Active 68076226 Problem Personality disorder, unspecified F60.9 Active 36121429 Problem Unspecified backache 724.5 Active 267556678 Problem Other atopic dermatitis and related conditions 691.8 Active 722203045 Problem Pain in joint, ankle and foot 719.47 Active 688340250 Problem Substance abuse F19.10 Active 84118565 Problem Personality disorder F60.9 Active 77784412 Problem Borderline personality disorder F60.3 Active 99480673 Problem Alcohol abuse F10.10 Active 99930817 Problem Screening for malignant neoplasm of the cervix V76.2 Active 200282657 Problem Acute upper respiratory infections of unspecified site 465.9 Active 59231483 Problem Unspecified breast screening V76.10 Active 502803735 Problem Acute pharyngitis 462 Active 446943255 Problem Unspecified disorder of menstruation and other abnormal bleeding from female genital tract 626.9 Active 323984860 Problem Unspecified vaginitis and vulvovaginitis 616.10 Active 756088232 Problem Obesity, unspecified 278.00 Active 278702140 Problem Other bipolar disorders F31.89 Active 38605674 Problem Acute sinusitis, unspecified 461.9 Active 30543933 Problem Unspecified personality disorder 301.9 Active [id number] ALLERGIES No Information SOCIAL HISTORY Never Assessed PLAN OF CARE VITAL SIGNS MEDICATIONS Unknown Medications RESULTS No Results PROCEDURES No Known procedures IMMUNIZATIONS No Known Immunizations MEDICAL (GENERAL) HISTORY Type Description Date Hospitalization History 2 [facility] 03[facility]2016
--- OUTSIDE RECORDS SUMMARY | 2017-02-04 19:31 | XMS REPORT ---
Author Author SAJI STREETER Organization [facility] Address [address] [place] [address] Care Team Providers Care Communications Equipment Installer Name Role Phone SYL SAJI Unavailable PROBLEMS Type Condition ICD9-CM Code PGB12-XE Code Onset Dates Condition Status SNOMED Code Problem General counseling for prescription of oral contraceptives V25.01 Active 977591078910127 Problem Unspecified contraceptive management V25.9 Active 858435264 Problem DTAP TEST V06.1 Active Problem Routine gynecological examination V72.31 Active 553701606313033 Problem PPV23 (PNEUMOVAX) DX V03.82 Active Problem Contusion of lower leg 924.10 Active 13139536 Problem Urinary frequency 788.41 Active 024998896 Problem Cough 786.2 Active 94483410 Problem Other malaise and fatigue 780.79 Active 263313666 Problem Uncomplicated opioid dependence F11.20 Active 86611656 Problem Fever, unspecified 780.60 Active 561390116 Problem Mood disorder F39 Active 89138033 Problem Other convulsions 780.39 Active 33105944 Problem Unspecified psychosis F29 Active 88486222 Problem Cannabis dependence F12.20 Active 76605806 Problem Other stimulant dependence, 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 Active 812870166 Problem 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 Active 67849630 Problem Personality disorder, unspecified F60.9 Active 77598560 Problem Unspecified backache 724.5 Active 940685207 Problem Other atopic dermatitis and related conditions 691.8 Active 757723821 Problem Pain in joint, ankle and foot 719.47 Active 081385845 Problem Substance abuse F19.10 Active 50396171 Problem Personality disorder F60.9 Active 70419308 Problem Borderline personality disorder F60.3 Active 03750052 Problem Alcohol abuse F10.10 Active 84849360 Problem Screening for malignant neoplasm of the cervix V76.2 Active 586258415 Problem Acute upper respiratory infections of unspecified site 465.9 Active 39786722 Problem Unspecified breast screening V76.10 Active 339619198 Problem Acute pharyngitis 462 Active 265906073 Problem Unspecified disorder of menstruation and other abnormal bleeding from female genital tract 626.9 Active 274931646 Problem Unspecified vaginitis and vulvovaginitis 616.10 Active 949203462 Problem Obesity, unspecified 278.00 Active 005375211 Problem Other bipolar disorders F31.89 Active 72884480 Problem Acute sinusitis, unspecified 461.9 Active 89014381 Problem Unspecified personality disorder 301.9 Active 64075631 ALLERGIES No Information SOCIAL HISTORY Never Assessed PLAN OF CARE Activity Details Follow Up 1 Week Reason: VITAL SIGNS MEDICATIONS Unknown Medications RESULTS No Results PROCEDURES Procedure Date Ordered Result Body Site Alcohol and/or drug services July 06, 2016 IMMUNIZATIONS No Known Immunizations MEDICAL (GENERAL) HISTORY Type Description Date Hospitalization History 2 [facility] 03/[facility]
--- OUTSIDE RECORDS SUMMARY | 2017-02-04 19:31 | XMS REPORT ---
Author Author SAJI STREETER Organization [facility] Address [address] [place] [address] Care Team Providers Care Operational Risk Analyst Name Role Phone SYL SAJI Unavailable PROBLEMS Type Condition ICD9-CM Code [id number] Code Onset Dates Condition Status SNOMED Code Problem General counseling for prescription of oral contraceptives V25.01 Active 157461881144224 Problem Unspecified contraceptive management V25.9 Active 145335654 Problem DTAP TEST V06.1 Active Problem Routine gynecological examination V72.31 Active 051302777162429 Problem PPV23 (PNEUMOVAX) DX V03.82 Active Problem Contusion of lower leg 924.10 Active 18989958 Problem Urinary frequency 788.41 Active 618131106 Problem Cough 786.2 Active 02653129 Problem Other malaise and fatigue 780.79 Active 602194730 Problem Uncomplicated opioid dependence F11.20 Active 89168199 Problem Fever, unspecified 780.60 Active 223022163 Problem Mood disorder F39 Active 94057667 Problem Other convulsions 780.39 Active 16596981 Problem Unspecified psychosis F29 Active 14620906 Problem Cannabis dependence F12.20 Active 31275731 Problem Other stimulant dependence, 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 Active 217815642 Problem 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 Active 96598860 Problem Personality disorder, unspecified F60.9 Active 10002942 Problem Unspecified backache 724.5 Active 017521891 Problem Other atopic dermatitis and related conditions 691.8 Active 550236445 Problem Pain in joint, ankle and foot 719.47 Active 355348001 Problem Substance abuse F19.10 Active 90115465 Problem Personality disorder F60.9 Active 50482722 Problem Borderline personality disorder F60.3 Active 04713309 Problem Alcohol abuse F10.10 Active 83947316 Problem Screening for malignant neoplasm of the cervix V76.2 Active 504289274 Problem Acute upper respiratory infections of unspecified site 465.9 Active 71944652 Problem Unspecified breast screening V76.10 Active 846561276 Problem Acute pharyngitis 462 Active 694120522 Problem Unspecified disorder of menstruation and other abnormal bleeding from female genital tract 626.9 Active 765934475 Problem Unspecified vaginitis and vulvovaginitis 616.10 Active 341507198 Problem Obesity, unspecified 278.00 Active 898266259 Problem Other bipolar disorders F31.89 Active 68829457 Problem Acute sinusitis, unspecified 461.9 Active 23646061 Problem Unspecified personality disorder 301.9 Active 41008382 ALLERGIES No Information SOCIAL HISTORY Never Assessed PLAN OF CARE Activity Details Follow Up 1 Week Reason: VITAL SIGNS MEDICATIONS Unknown Medications RESULTS No Results PROCEDURES Procedure Date Ordered Result Body Site Alcohol and/or drug services Jun 26, 2016 IMMUNIZATIONS No Known Immunizations MEDICAL (GENERAL) HISTORY Type Description Date Hospitalization History 2 [facility] 03[facility]
--- OUTSIDE RECORDS SUMMARY | 2017-02-04 19:31 | XMS REPORT ---
Author Author PINACHARLES BOATENG [facility] Address [address] [place] [address] Care Team Providers Care Broomcorn Thresher Name Role Phone CHARLES HELLER Unavailable PROBLEMS Type Condition ICD9-CM Code EAU30-UW Code Onset Dates Condition Status SNOMED Code Problem Pain in joint, ankle and foot 719.47 Active 373120895 Problem Unspecified backache 724.5 Active 138755935 Problem Other malaise and fatigue 780.79 Active 820794792 Problem Cough 786.2 Active 33938043 Problem Fever, unspecified 780.60 Active 548457067 Problem Screening for malignant neoplasm of the cervix V76.2 Active 990275921 Problem Obesity, unspecified 278.00 Active 072336091 Problem Unspecified contraceptive management V25.9 Active 759446142 Problem Contusion of lower leg 924.10 Active 55316855 Problem Uncomplicated opioid dependence F11.20 Active 14375911 Problem Acute upper respiratory infections of unspecified site 465.9 Active 87515752 Problem Cannabis dependence F12.20 Active 24774397 Problem Acute pharyngitis 462 Active 201048629 Problem Other stimulant dependence, 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10 Active 52845594 Problem Unspecified personality disorder 301.9 Active 09668475 Problem General counseling for prescription of oral contraceptives V25.01 Active 184974818234319 Problem Other atopic dermatitis and related conditions 691.8 Active 470623158 Problem Routine gynecological examination V72.31 Active 105333312958386 Problem Unspecified disorder of menstruation and other abnormal bleeding from female genital tract 626.9 Active 567138031 Problem Unspecified breast screening V76.10 Active 006413893 Problem Urinary frequency 788.41 Active 062011711 Problem Other bipolar disorders F31.89 Active 59136909 Problem Unspecified vaginitis and vulvovaginitis 616.10 Active 588471591 Problem Other convulsions 780.39 Active 71987158 ALLERGIES Substance Reaction Event Type Date Status N.K.D.A. Unknown Non Drug Allergy Apr, Unknown SOCIAL HISTORY No smoking Hx information available PLAN OF CARE Activity Details Follow Up 1 Week Reason: VITAL SIGNS Height 64 in 2016-04-10 Weight 188.7 lbs 2016-04-10 Heart Rate 100 bpm 2016-04-10 Respiratory Rate 18 2016-04-10 BMI 32.39 kg/m2 2016-04-10 Blood pressure systolic 112 mmHg 2016-04-10 Blood pressure diastolic 72 mmHg 2016-04-10 MEDICATIONS Medication Instructions Dosage Frequency Start Date End Date Duration Status Olanzapine 10 mg Orally Once a day 1 tablet 24h Active Trazodone HCl 150 MG Orally Once a day 1 tablet at bedtime 24h Active Zyprexa 7.5 MG Orally 2 times a day 1 tablet at 3 and 1 at QHS 12h Apr Active RESULTS Name Result Date Reference Range TSH 2016-04-10 TSH 1.190 0.450-4.500 LIPID PANEL 2016-04-10 Cholesterol, Total 198 100-199 Triglycerides 93 0-149 HDL Cholesterol 70 >39 VLDL Cholesterol [place] 19 5-40 LDL Cholesterol Calc 109 0-99 CMP 2016-04-10 Glucose, Serum 86 65-99 BUN 9 6-20 Creatinine, Serum 0.61 0.57-1.00 eGFR If NonAfricn Am 122 >59 eGFR If Africn Am 141 >59 BUN/Creatinine Ratio 15 8-20 Sodium, Serum 142 136-144 Potassium, Serum 5.2 3.5-5.2 Chloride, Serum 104 97-106 Carbon Dioxide, Total 24 18-29 Calcium, Serum 9.6 8.7-10.2 Protein, Total, Serum 7.3 6.0-8.5 Albumin, Serum 4.4 3.5-5.5 Globulin, Total 2.9 1.5-4.5 A/G Ratio 1.5 1.1-2.5 Bilirubin, Total 0.3 0.0-1.2 Alkaline Phosphatase, S 122 39-117 AST (SGOT) 13 0-40 ALT (SGPT) 18 0-32 TEST, URINE (IN HOUSE) 2016-04-10 RESULTS Negative Lot # [id number] Control + Exp date URINE DRUG SCREEN (IN HOUSE) 2016-04-10 Lot # [id number] Exp date Control + COCAINE Negative AMPH Negative MTD Negative THC Negative OPIATE Negative BENZO Negative PCP Negative BAR Negative OXY Negative MAMP Negative TCA Negative BUP Negative MDMA Negative UA LONG DIP (IN HOUSE) 2016-04-10 Lot # [id number] Exp date Clarity Clear Color Yellow Odor None GLU Negative CHUCK Negative KET Negative SG 1.015 BLO 2+ pH 5.5 Protein Negative URO 0.2 NIT Negative JOSE Negative Lot # [id number] Exp date CBC w/ MANUAL DIFF 2016-04-10 WBC 11.7 3.4-10.8 RBC 4.94 3.77-5.28 Hemoglobin 14.8 11.1-15.9 Hematocrit 45.2 34.0-46.6 MCV 92 79-97 MCH 30.0 26.6-33.0 MCHC 32.7 31.5-35.7 RDW 14.5 12.3-15.4 Platelets 495 150-379 Neutrophils 60 Lymphs 29 Monocytes 7 Eos 4 Basos 0 Neutrophils Absolute 7.0 1.4-7.0 Lymphs (Absolute) 3.4 0.7-3.1 Monocytes(Absolute) 0.8 0.1-0.9 Eos (Absolute Value) 0.5 0.0-0.4 Baso(Absolute) 0.0 0.0-0.2 Differential Comment RBC Comment Note: Normal Platelet Comment Note: Adequate PROCEDURES Procedure Date Ordered Related Diagnosis Body Site MANUAL CELL COUNT, EACH Apr 10, 2016 COMPREHEN METABOLIC PANEL Apr 10, 2016 MH Office Visit, Est Pt., Level 3 Apr 10, 2016 URINE TEST Apr 10, 2016 VENIPUNCT, ROUTINE* Apr 10, 2016 ASSAY THYROID STIM HORMONE Apr 10, 2016 LIPID PANEL Apr 10, 2016 URINALYSIS, AUTO, W/O SCOPE Apr 10, 2016 DRUG SCREEN NON TLC DEVICES Apr 10, 2016 IMMUNIZATIONS No Known Immunizations
--- OUTSIDE RECORDS SUMMARY | 2017-02-04 19:31 | XMS REPORT ---
Author Author PIN[facility]LES BOATENG [facility] Address [address] [place] [address] Care Team Providers Care Retirement Actuary Name Role Phone CHARLES HELLER Unavailable PROBLEMS Type Condition ICD9-CM Code [id number] Code Onset Dates Condition Status SNOMED Code Problem General counseling for prescription of oral contraceptives V25.01 Active 041776814494760 Problem Unspecified contraceptive management V25.9 Active 348180264 Problem DTAP TEST V06.1 Active Problem Routine gynecological examination V72.31 Active 615037946389808 Problem PPV23 (PNEUMOVAX) DX V03.82 Active Problem Contusion of lower leg 924.10 Active 22751503 Problem Urinary frequency 788.41 Active 397927877 Problem Cough 786.2 Active 60882708 Problem Other malaise and fatigue 780.79 Active 019301433 Problem Uncomplicated opioid dependence F11.20 Active 38896607 Problem Fever, unspecified 780.60 Active 856489622 Problem Mood disorder F39 Active 75776716 Problem Other convulsions 780.39 Active 51632953 Problem Unspecified psychosis F29 Active 12269962 Problem Cannabis dependence F12.20 Active 56177005 Problem Other stimulant dependence, 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 Active 350042539 Problem 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 Active 38463045 Problem Personality disorder, unspecified F60.9 Active 50132906 Problem Unspecified backache 724.5 Active 224409894 Problem Other atopic dermatitis and related conditions 691.8 Active 419410769 Problem Pain in joint, ankle and foot 719.47 Active 768608472 Problem Substance abuse F19.10 Active 06365456 Problem Personality disorder F60.9 Active 67342748 Problem Borderline personality disorder F60.3 Active 59827914 Problem Alcohol abuse F10.10 Active 76656858 Problem Screening for malignant neoplasm of the cervix V76.2 Active 133463976 Problem Acute upper respiratory infections of unspecified site 465.9 Active 66891417 Problem Unspecified breast screening V76.10 Active 593019096 Problem Acute pharyngitis 462 Active 620018277 Problem Unspecified disorder of menstruation and other abnormal bleeding from female genital tract 626.9 Active 069096454 Problem Unspecified vaginitis and vulvovaginitis 616.10 Active 557668356 Problem Obesity, unspecified 278.00 Active 415779456 Problem Other bipolar disorders F31.89 Active 93600536 Problem Acute sinusitis, unspecified 461.9 Active 05665730 Problem Unspecified personality disorder 301.9 Active 91196726 ALLERGIES Substance Reaction Event Type Date Status N.K.D.A. Unknown Non Drug Allergy May, Unknown SOCIAL HISTORY No smoking Hx information available PLAN OF CARE Activity Details Follow Up 4 Weeks Reason: VITAL SIGNS Height 64 in 2016-05-15 Weight 207.5 lbs 2016-05-15 Heart Rate 92 bpm 2016-05-15 Respiratory Rate 20 2016-05-15 BMI 35.61 kg/m2 2016-05-15 Blood pressure systolic 116 mmHg 2016-05-15 Blood pressure diastolic 81 mmHg 2016-05-15 MEDICATIONS Medication Instructions Dosage Frequency Start Date End Date Duration Status Latuda 60 MG Orally Once a day 1 tablet 24h Active Olanzapine 10 mg Orally Once a day 1 tablet 24h Active Trazodone HCl 150 MG Orally Once a day 1 tablet at bedtime 24h Active Diflucan 150 MG Orally q 3 days 1 tablet today and then 1 tablet in 3 days if symptoms have not resolved May, May, 6 days Active Zyprexa 5 MG Orally 2 times a day 1 tablet at 2 and 1 at QHS 12h Active RESULTS No Results PROCEDURES Procedure Date Ordered Related Diagnosis Body Site MH Office Visit, Est Pt., Level 2 May 15, 2016 IMMUNIZATIONS No Known Immunizations
--- OUTSIDE RECORDS SUMMARY | 2017-02-04 19:31 | XMS REPORT ---
Author Author SAJI STREETER Organization [facility] Address [address] [place] [address] Care Team Providers Care Arcade Games Mechanic Name Role Phone SYL SAJI Unavailable PROBLEMS Type Condition ICD9-CM Code AGP43-PE Code Onset Dates Condition Status SNOMED Code Problem General counseling for prescription of oral contraceptives V25.01 Active 986582526165407 Problem Unspecified contraceptive management V25.9 Active 204029122 Problem DTAP TEST V06.1 Active Problem Routine gynecological examination V72.31 Active 621750775282866 Problem PPV23 (PNEUMOVAX) DX V03.82 Active Problem Contusion of lower leg 924.10 Active 38280403 Problem Urinary frequency 788.41 Active 671896464 Problem Cough 786.2 Active 93895865 Problem Other malaise and fatigue 780.79 Active 205208700 Problem Uncomplicated opioid dependence F11.20 Active 07258132 Problem Fever, unspecified 780.60 Active 570591559 Problem Mood disorder F39 Active 20709564 Problem Other convulsions 780.39 Active 31571921 Problem Unspecified psychosis F29 Active 84944303 Problem Cannabis dependence F12.20 Active 34232743 Problem Other stimulant dependence, 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 Active 420956682 Problem 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 Active 47221702 Problem Personality disorder, unspecified F60.9 Active 51466633 Problem Unspecified backache 724.5 Active 636381992 Problem Other atopic dermatitis and related conditions 691.8 Active 008006064 Problem Pain in joint, ankle and foot 719.47 Active 482665480 Problem Substance abuse F19.10 Active 03181573 Problem Personality disorder F60.9 Active 91207170 Problem Borderline personality disorder F60.3 Active 55253177 Problem Alcohol abuse F10.10 Active 83568008 Problem Screening for malignant neoplasm of the cervix V76.2 Active 844443812 Problem Acute upper respiratory infections of unspecified site 465.9 Active 69176729 Problem Unspecified breast screening V76.10 Active 731511627 Problem Acute pharyngitis 462 Active 902756263 Problem Unspecified disorder of menstruation and other abnormal bleeding from female genital tract 626.9 Active 549492089 Problem Unspecified vaginitis and vulvovaginitis 616.10 Active 814745935 Problem Obesity, unspecified 278.00 Active 636889361 Problem Other bipolar disorders F31.89 Active 29240817 Problem Acute sinusitis, unspecified 461.9 Active 02549096 Problem Unspecified personality disorder 301.9 Active 61802087 ALLERGIES No Information SOCIAL HISTORY Never Assessed PLAN OF CARE Activity Details Follow Up 1 Week Reason: VITAL SIGNS MEDICATIONS Unknown Medications RESULTS No Results PROCEDURES Procedure Date Ordered Result Body Site Alcohol and/or drug services Jun 19, 2016 IMMUNIZATIONS No Known Immunizations MEDICAL (GENERAL) HISTORY Type Description Date Hospitalization History 2 [facility]
--- OUTSIDE RECORDS SUMMARY | 2017-02-04 19:31 | XMS REPORT ---
Author Author SAJI STREETER Organization [facility] Address [address] [place] [address] Care Team Providers Care Drying Room Attendant Name Role Phone SYL SAJI Unavailable PROBLEMS Type Condition ICD9-CM Code BBJ09-SW Code Onset Dates Condition Status SNOMED Code Problem General counseling for prescription of oral contraceptives V25.01 Active 091369860307182 Problem Unspecified contraceptive management V25.9 Active 584695687 Problem DTAP TEST V06.1 Active Problem Routine gynecological examination V72.31 Active 994035714192481 Problem PPV23 (PNEUMOVAX) DX V03.82 Active Problem Contusion of lower leg 924.10 Active 26307642 Problem Urinary frequency 788.41 Active 471289643 Problem Cough 786.2 Active 04451075 Problem Other malaise and fatigue 780.79 Active 274985825 Problem Uncomplicated opioid dependence F11.20 Active 80406869 Problem Fever, unspecified 780.60 Active 532797219 Problem Mood disorder F39 Active 94328244 Problem Other convulsions 780.39 Active 01639824 Problem Unspecified psychosis F29 Active 56748389 Problem Cannabis dependence F12.20 Active 99934235 Problem Other stimulant dependence, 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 Active 420660508 Problem 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 Active 64033272 Problem Personality disorder, unspecified F60.9 Active 52815714 Problem Unspecified backache 724.5 Active 984317624 Problem Other atopic dermatitis and related conditions 691.8 Active 303120875 Problem Pain in joint, ankle and foot 719.47 Active 397108458 Problem Substance abuse F19.10 Active 29428470 Problem Personality disorder F60.9 Active 54281175 Problem Borderline personality disorder F60.3 Active 21123988 Problem Alcohol abuse F10.10 Active 13454700 Problem Screening for malignant neoplasm of the cervix V76.2 Active 747836989 Problem Acute upper respiratory infections of unspecified site 465.9 Active 32627622 Problem Unspecified breast screening V76.10 Active 987432438 Problem Acute pharyngitis 462 Active 843541340 Problem Unspecified disorder of menstruation and other abnormal bleeding from female genital tract 626.9 Active 473073800 Problem Unspecified vaginitis and vulvovaginitis 616.10 Active 832295421 Problem Obesity, unspecified 278.00 Active 780679566 Problem Other bipolar disorders F31.89 Active 47030783 Problem Acute sinusitis, unspecified 461.9 Active 19639809 Problem Unspecified personality disorder 301.9 Active 55201986 ALLERGIES Unknown Allergies SOCIAL HISTORY No smoking Hx information available PLAN OF CARE Activity Details Follow Up 2 - 3 Days Reason: VITAL SIGNS MEDICATIONS Unknown Medications RESULTS No Results PROCEDURES Procedure Date Ordered Related Diagnosis Body Site Alcohol and/or drug services May 15, 2016 IMMUNIZATIONS No Known Immunizations
--- OUTSIDE RECORDS SUMMARY | 2017-02-04 19:32 | XMS REPORT ---
Author Author SAJI STREETER Organization [facility] Address [address] [place] [address] Care Team Providers Care Pile Driver Operator Barge Mounted Name Role Phone SYL SAJI Unavailable PROBLEMS Type Condition ICD9-CM Code [id number] Code Onset Dates Condition Status SNOMED Code Problem General counseling for prescription of oral contraceptives V25.01 Active 222222138423798 Problem Unspecified contraceptive management V25.9 Active 934682774 Problem DTAP TEST V06.1 Active Problem Routine gynecological examination V72.31 Active 756206604909911 Problem PPV23 (PNEUMOVAX) DX V03.82 Active Problem Contusion of lower leg 924.10 Active 12694984 Problem Urinary frequency 788.41 Active 036646565 Problem Cough 786.2 Active 80381996 Problem Other malaise and fatigue 780.79 Active 614145495 Problem Uncomplicated opioid dependence F11.20 Active 46159218 Problem Fever, unspecified 780.60 Active 822733665 Problem Mood disorder F39 Active 22903039 Problem Other convulsions 780.39 Active 62564218 Problem Unspecified psychosis F29 Active 87976005 Problem Cannabis dependence F12.20 Active 46039841 Problem Other stimulant dependence, 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 Active 999912875 Problem 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 Active 90175570 Problem Personality disorder, unspecified F60.9 Active 15655092 Problem Unspecified backache 724.5 Active 882757813 Problem Other atopic dermatitis and related conditions 691.8 Active 830252436 Problem Pain in joint, ankle and foot 719.47 Active 524004829 Problem Substance abuse F19.10 Active 71986683 Problem Personality disorder F60.9 Active 90893943 Problem Borderline personality disorder F60.3 Active 53455471 Problem Alcohol abuse F10.10 Active 94372859 Problem Screening for malignant neoplasm of the cervix V76.2 Active 409543676 Problem Acute upper respiratory infections of unspecified site 465.9 Active 01905389 Problem Unspecified breast screening V76.10 Active 230802368 Problem Acute pharyngitis 462 Active 510041696 Problem Unspecified disorder of menstruation and other abnormal bleeding from female genital tract 626.9 Active 261507451 Problem Unspecified vaginitis and vulvovaginitis 616.10 Active 545871763 Problem Obesity, unspecified 278.00 Active 261480714 Problem Other bipolar disorders F31.89 Active 62562782 Problem Acute sinusitis, unspecified 461.9 Active 48478943 Problem Unspecified personality disorder 301.9 Active 05748048 ALLERGIES Unknown Allergies SOCIAL HISTORY No smoking Hx information available PLAN OF CARE Activity Details Follow Up 2 - 3 Days Reason: VITAL SIGNS MEDICATIONS Unknown Medications RESULTS No Results PROCEDURES Procedure Date Ordered Related Diagnosis Body Site Alcohol and/or drug services May 25, 2016 IMMUNIZATIONS No Known Immunizations
--- OUTSIDE RECORDS SUMMARY | 2017-02-04 19:32 | XMS REPORT ---
Author Author PINACHARLES BOATENG [facility] Address [address] [place] [address] Care Team Providers Care Real Estate Closer Name Role Phone CHARLES HELLER Unavailable PROBLEMS Type Condition ICD9-CM Code GIV69-OM Code Onset Dates Condition Status SNOMED Code Problem Pain in joint, ankle and foot 719.47 Active 891907960 Problem Unspecified backache 724.5 Active 527088299 Problem Other malaise and fatigue 780.79 Active 101840435 Problem Cough 786.2 Active 28628637 Problem Fever, unspecified 780.60 Active 985291462 Problem Screening for malignant neoplasm of the cervix V76.2 Active 005554233 Problem Obesity, unspecified 278.00 Active 317092800 Problem Unspecified contraceptive management V25.9 Active 375230600 Problem Contusion of lower leg 924.10 Active 06020581 Problem Uncomplicated opioid dependence F11.20 Active 41649610 Problem Acute upper respiratory infections of unspecified site 465.9 Active 97755033 Problem Cannabis dependence F12.20 Active 03136003 Problem Acute pharyngitis 462 Active 094369650 Problem Other stimulant dependence, 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10 Active 81904917 Problem Unspecified personality disorder 301.9 Active 48876210 Problem General counseling for prescription of oral contraceptives V25.01 Active 042723590141108 Problem Other atopic dermatitis and related conditions 691.8 Active 260055407 Problem Routine gynecological examination V72.31 Active 906553803962270 Problem Unspecified disorder of menstruation and other abnormal bleeding from female genital tract 626.9 Active 763922119 Problem Unspecified breast screening V76.10 Active 758653632 Problem Urinary frequency 788.41 Active 836350719 Problem Other bipolar disorders F31.89 Active 14071908 Problem Unspecified vaginitis and vulvovaginitis 616.10 Active 593719790 Problem Other convulsions 780.39 Active 66838929 ALLERGIES Substance Reaction Event Type Date Status N.K.D.A. Unknown Non Drug Allergy Apr, Unknown SOCIAL HISTORY No smoking Hx information available PLAN OF CARE Activity Details Follow Up 4 Weeks Reason: VITAL SIGNS Height 64 in 2016-04-21 Weight 194.3 lbs 2016-04-21 Heart Rate 120 bpm 2016-04-21 Respiratory Rate 22 2016-04-21 BMI 33.35 kg/m2 2016-04-21 Blood pressure systolic 121 mmHg 2016-04-21 Blood pressure diastolic 75 mmHg 2016-04-21 MEDICATIONS Medication Instructions Dosage Frequency Start Date End Date Duration Status Zyprexa 7.5 MG Orally 2 times a day 1 tablet at 2 and 1 at QHS 12h Active Olanzapine 10 mg Orally Once a day 1 tablet 24h Active Trazodone HCl 150 MG Orally Once a day 1 tablet at bedtime 24h Active Latuda 20 mg Orally Once a day 1 tablet 24h Apr, Active RESULTS No Results PROCEDURES Procedure Date Ordered Related Diagnosis Body Site [facility] VISIT ESTABLISHED PATIENT Apr 21, 2016 Office Visit, Est Pt., Level 2 Apr 21, 2016 IMMUNIZATIONS No Known Immunizations
--- OUTSIDE RECORDS SUMMARY | 2017-02-04 19:32 | XMS REPORT ---
Author Author LUANA LUCIA [facility] Address [address] [place] [address] Care Team Providers Care Ping Pong Table Assembler Name Role Phone REA LUANA Unavailable PROBLEMS Type Condition ICD9-CM Code SMH02-GW Code Onset Dates Condition Status SNOMED Code Problem General counseling for prescription of oral contraceptives V25.01 Active 883980452662501 Problem Unspecified contraceptive management V25.9 Active 378917815 Problem DTAP TEST V06.1 Active Problem Routine gynecological examination V72.31 Active 936434145159923 Problem PPV23 (PNEUMOVAX) DX V03.82 Active Problem Contusion of lower leg 924.10 Active 32446271 Problem Urinary frequency 788.41 Active 305607302 Problem Cough 786.2 Active 90077367 Problem Other malaise and fatigue 780.79 Active 658817573 Problem Uncomplicated opioid dependence F11.20 Active 05343307 Problem Fever, unspecified 780.60 Active 387988937 Problem Mood disorder F39 Active 90662279 Problem Other convulsions 780.39 Active 13501031 Problem Unspecified psychosis F29 Active 57266206 Problem Cannabis dependence F12.20 Active 16140859 Problem Other stimulant dependence, 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 Active 456383078 Problem 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 Active 00087597 Problem Personality disorder, unspecified F60.9 Active 65306036 Problem Unspecified backache 724.5 Active 585255650 Problem Other atopic dermatitis and related conditions 691.8 Active 663926070 Problem Pain in joint, ankle and foot 719.47 Active 465873019 Problem Substance abuse F19.10 Active 95482383 Problem Personality disorder F60.9 Active 56504378 Problem Borderline personality disorder F60.3 Active 28044467 Problem Alcohol abuse F10.10 Active 21909787 Problem Screening for malignant neoplasm of the cervix V76.2 Active 719227637 Problem Acute upper respiratory infections of unspecified site 465.9 Active 95408378 Problem Unspecified breast screening V76.10 Active 737656136 Problem Acute pharyngitis 462 Active 217338202 Problem Unspecified disorder of menstruation and other abnormal bleeding from female genital tract 626.9 Active 047678205 Problem Unspecified vaginitis and vulvovaginitis 616.10 Active 581140851 Problem Obesity, unspecified 278.00 Active 531642963 Problem Other bipolar disorders F31.89 Active 73319438 Problem Acute sinusitis, unspecified 461.9 Active 92056896 Problem Unspecified personality disorder 301.9 Active 09318486 ALLERGIES No Known Allergies SOCIAL HISTORY Never Assessed PLAN OF CARE Activity Details Follow Up prn Reason: VITAL SIGNS Height 64 in 2016-07-10 Weight 219 lbs 2016-07-10 Temperature 98.4 degrees Fahrenheit 2016-07-10 Heart Rate 86 bpm 2016-07-10 Respiratory Rate 18 2016-07-10 BMI 37.59 kg/m2 2016-07-10 Blood pressure systolic 134 mmHg 2016-07-10 Blood pressure diastolic 78 mmHg 2016-07-10 MEDICATIONS Medication Instructions Dosage Frequency Start Date End Date Duration Status Latuda 80 MG Orally Once a day 1 tablet 24h 30 days Active Olanzapine 7.5 MG Orally at bedtime 1 tablet 30 days Active Trihexyphenidyl HCl 2 MG Orally once a day PRN 1 tablet with meals Jul 30 day(s) Active Latuda 40 mg Orally twice a day 1 tablet with food 12h Jul, 30 day(s) Active Zyprexa 5 mg Orally Once a day 1 tablet at 2 24h 30 days Active Trazodone HCl 50 MG Orally Once a day 1 tablet at bedtime 24h 30 days Active RESULTS Name Result Date Reference Range Xray : Ankle, Left, 3 views (IN HOUSE) 2016-07-10 PROCEDURES Procedure Date Ordered Result Body Site X-RAY EXAM OF ANKLE July 10, 2016 IMMUNIZATIONS No Known Immunizations MEDICAL (GENERAL) HISTORY Type Description Date Hospitalization History [facility] 03[facility]2016
--- OUTSIDE RECORDS SUMMARY | 2017-02-04 19:32 | XMS REPORT ---
Author Author CALOS NAVARRO [facility] Address [address] [place] [address] Care Team Providers Care Furniture Maker Name Role Phone RAMON CALOS Unavailable PROBLEMS Type Condition ICD9-CM Code SOC55-GD Code Onset Dates Condition Status SNOMED Code Problem General counseling for prescription of oral contraceptives V25.01 Active 969315754633710 Problem Unspecified contraceptive management V25.9 Active 515323795 Problem DTAP TEST V06.1 Active Problem Routine gynecological examination V72.31 Active 991835825196897 Problem PPV23 (PNEUMOVAX) DX V03.82 Active Problem Contusion of lower leg 924.10 Active 70378016 Problem Urinary frequency 788.41 Active 360562832 Problem Cough 786.2 Active 73585821 Problem Other malaise and fatigue 780.79 Active 008553181 Problem Uncomplicated opioid dependence F11.20 Active 22474627 Problem Fever, unspecified 780.60 Active 193881999 Problem Mood disorder F39 Active 65149071 Problem Other convulsions 780.39 Active 66516799 Problem Unspecified psychosis F29 Active 45672433 Problem Cannabis dependence F12.20 Active 90481221 Problem Other stimulant dependence, 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 Active 357017038 Problem 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 Active 37635603 Problem Personality disorder, unspecified F60.9 Active 11758275 Problem Unspecified backache 724.5 Active 674743329 Problem Other atopic dermatitis and related conditions 691.8 Active 939978181 Problem Pain in joint, ankle and foot 719.47 Active 934126534 Problem Substance abuse F19.10 Active 45741897 Problem Personality disorder F60.9 Active 20096242 Problem Borderline personality disorder F60.3 Active 03902447 Problem Alcohol abuse F10.10 Active 25190198 Problem Screening for malignant neoplasm of the cervix V76.2 Active 502314935 Problem Acute upper respiratory infections of unspecified site 465.9 Active 69774188 Problem Unspecified breast screening V76.10 Active 239099885 Problem Acute pharyngitis 462 Active 527128566 Problem Unspecified disorder of menstruation and other abnormal bleeding from female genital tract 626.9 Active 405484746 Problem Unspecified vaginitis and vulvovaginitis 616.10 Active 683654366 Problem Obesity, unspecified 278.00 Active 356634180 Problem Other bipolar disorders F31.89 Active 87837644 Problem Acute sinusitis, unspecified 461.9 Active 00777516 Problem Unspecified personality disorder 301.9 Active 79755515 ALLERGIES Unknown Allergies SOCIAL HISTORY No smoking Hx information available PLAN OF CARE Activity Details Follow Up 2 - 3 Days Reason:Drug use, depression, famiily therapy VITAL SIGNS MEDICATIONS Unknown Medications RESULTS No Results PROCEDURES Procedure Date Ordered Related Diagnosis Body Site Psych diagnostic evaluation, new patient May 26, 2016 IMMUNIZATIONS No Known Immunizations
--- OUTSIDE RECORDS SUMMARY | 2017-02-04 19:32 | XMS REPORT ---
Author Author SAJI STREETER Organization [facility] Address [address] [place] [address] Care Team Providers Care Air Conditioning Specialist Name Role Phone SYL SAJI Unavailable PROBLEMS Type Condition ICD9-CM Code UVR83-SO Code Onset Dates Condition Status SNOMED Code Problem General counseling for prescription of oral contraceptives V25.01 Active 931870524958134 Problem Unspecified contraceptive management V25.9 Active 314096146 Problem DTAP TEST V06.1 Active Problem Routine gynecological examination V72.31 Active 980649005586321 Problem PPV23 (PNEUMOVAX) DX V03.82 Active Problem Contusion of lower leg 924.10 Active 09898996 Problem Urinary frequency 788.41 Active 930425156 Problem Cough 786.2 Active 79474538 Problem Other malaise and fatigue 780.79 Active 795074888 Problem Uncomplicated opioid dependence F11.20 Active 72361893 Problem Fever, unspecified 780.60 Active 348669666 Problem Mood disorder F39 Active 79724921 Problem Other convulsions 780.39 Active 85410430 Problem Unspecified psychosis F29 Active 49619282 Problem Cannabis dependence F12.20 Active 56765579 Problem Other stimulant dependence, 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 Active 720212780 Problem 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 Active 92216772 Problem Personality disorder, unspecified F60.9 Active 99732925 Problem Unspecified backache 724.5 Active 911196286 Problem Other atopic dermatitis and related conditions 691.8 Active 190121770 Problem Pain in joint, ankle and foot 719.47 Active 599698883 Problem Substance abuse F19.10 Active 95804084 Problem Personality disorder F60.9 Active 47296638 Problem Borderline personality disorder F60.3 Active 15636741 Problem Alcohol abuse F10.10 Active 04831983 Problem Screening for malignant neoplasm of the cervix V76.2 Active 514407445 Problem Acute upper respiratory infections of unspecified site 465.9 Active 93725128 Problem Unspecified breast screening V76.10 Active 027661927 Problem Acute pharyngitis 462 Active 160555459 Problem Unspecified disorder of menstruation and other abnormal bleeding from female genital tract 626.9 Active 476401092 Problem Unspecified vaginitis and vulvovaginitis 616.10 Active 641489646 Problem Obesity, unspecified 278.00 Active 787633509 Problem Other bipolar disorders F31.89 Active 74876301 Problem Acute sinusitis, unspecified 461.9 Active 90940180 Problem Unspecified personality disorder 301.9 Active 40165674 ALLERGIES Unknown Allergies SOCIAL HISTORY No smoking Hx information available PLAN OF CARE Activity Details Follow Up 1 Week Reason: VITAL SIGNS MEDICATIONS Unknown Medications RESULTS No Results PROCEDURES Procedure Date Ordered Related Diagnosis Body Site Alcohol and/or drug services May 18, 2016 IMMUNIZATIONS No Known Immunizations
--- OUTSIDE RECORDS SUMMARY | 2017-02-04 19:33 | XMS REPORT ---
Author Author [facility] HELLER [facility] Address [address] [place] [address] Care Team Providers Care Automobile Accessories Installer Name Role Phone CHARLES HELLER Unavailable PROBLEMS Type Condition ICD9-CM Code TDS38-UG Code Onset Dates Condition Status SNOMED Code Problem General counseling for prescription of oral contraceptives V25.01 Active 166334057469583 Problem Unspecified contraceptive management V25.9 Active 731293733 Problem DTAP TEST V06.1 Active Problem Routine gynecological examination V72.31 Active 380212919108402 Problem PPV23 (PNEUMOVAX) DX V03.82 Active Problem Contusion of lower leg 924.10 Active 78857645 Problem Urinary frequency 788.41 Active 425605301 Problem Cough 786.2 Active 07580135 Problem Other malaise and fatigue 780.79 Active 339364068 Problem Uncomplicated opioid dependence F11.20 Active 95652745 Problem Fever, unspecified 780.60 Active 695412347 Problem Mood disorder F39 Active 67421490 Problem Other convulsions 780.39 Active 94346443 Problem Unspecified psychosis F29 Active 39526853 Problem Cannabis dependence F12.20 Active 10529009 Problem Other stimulant dependence, 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 Active 858085066 Problem 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 Active 53767207 Problem Personality disorder, unspecified F60.9 Active 61747538 Problem Unspecified backache 724.5 Active 642183168 Problem Other atopic dermatitis and related conditions 691.8 Active 824738696 Problem Pain in joint, ankle and foot 719.47 Active 664668404 Problem Substance abuse F19.10 Active 59556176 Problem Personality disorder F60.9 Active 09383706 Problem Borderline personality disorder F60.3 Active 64643379 Problem Alcohol abuse F10.10 Active 52603961 Problem Screening for malignant neoplasm of the cervix V76.2 Active 000776356 Problem Acute upper respiratory infections of unspecified site 465.9 Active 51811812 Problem Unspecified breast screening V76.10 Active 573546635 Problem Acute pharyngitis 462 Active 641053600 Problem Unspecified disorder of menstruation and other abnormal bleeding from female genital tract 626.9 Active 698370628 Problem Unspecified vaginitis and vulvovaginitis 616.10 Active 202593847 Problem Obesity, unspecified 278.00 Active 671192602 Problem Other bipolar disorders F31.89 Active 98211888 Problem Acute sinusitis, unspecified 461.9 Active 58072590 Problem Unspecified personality disorder 301.9 Active 96411686 ALLERGIES No Known Allergies SOCIAL HISTORY Never Assessed PLAN OF CARE Activity Details Follow Up 4 Weeks Reason: VITAL SIGNS Height 64 in 2016-07-01 Weight 212.6 lbs 2016-07-01 Heart Rate 120 bpm 2016-07-01 Respiratory Rate 22 2016-07-01 BMI 36.49 kg/m2 2016-07-01 Blood pressure systolic 145 mmHg 2016-07-01 Blood pressure diastolic 73 mmHg 2016-07-01 MEDICATIONS Medication Instructions Dosage Frequency Start Date End Date Duration Status Latuda 80 MG Orally Once a day 1 tablet 24h 30 days Active Olanzapine 10 mg Orally 2 times a day 1 tablet and take 1/2 tab at 2 pm 12h 30 days Active Trazodone HCl 50 MG Orally Once a day 1 tablet at bedtime 24h 30 days Active RESULTS No Results PROCEDURES No Known procedures IMMUNIZATIONS No Known Immunizations MEDICAL (GENERAL) HISTORY Type Description Date Hospitalization History 2 [facility] 03/[facility]
--- OUTSIDE RECORDS SUMMARY | 2017-02-04 19:33 | XMS REPORT ---
Author [facility]LL[facility] Address [address] [place] [address] Care Team Providers Care Reconciliation Machine Operator Name Role Phone CIRO HELLERDEANNE Unavailable PROBLEMS Type Condition ICD9-CM Code RCW51-IR Code Onset Dates Condition Status SNOMED Code Problem General counseling for prescription of oral contraceptives V25.01 Active 339728857176663 Problem Unspecified contraceptive management V25.9 Active 550366406 Problem DTAP TEST V06.1 Active Problem Routine gynecological examination V72.31 Active 638806604887545 Problem PPV23 (PNEUMOVAX) DX V03.82 Active Problem Contusion of lower leg 924.10 Active 64982585 Problem Urinary frequency 788.41 Active 367139367 Problem Cough 786.2 Active 63112874 Problem Other malaise and fatigue 780.79 Active 693028745 Problem Uncomplicated opioid dependence F11.20 Active 65045195 Problem Fever, unspecified 780.60 Active 912821927 Problem Mood disorder F39 Active 50786003 Problem Other convulsions 780.39 Active 01920834 Problem Unspecified psychosis F29 Active 01689657 Problem Cannabis dependence F12.20 Active 60278779 Problem Other stimulant dependence, 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 Active 434560095 Problem 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 Active 92712885 Problem Personality disorder, unspecified F60.9 Active 68726728 Problem Unspecified backache 724.5 Active 768901480 Problem Other atopic dermatitis and related conditions 691.8 Active 478415503 Problem Pain in joint, ankle and foot 719.47 Active 058181542 Problem Substance abuse F19.10 Active 96354879 Problem Personality disorder F60.9 Active 06954063 Problem Borderline personality disorder F60.3 Active 43726815 Problem Alcohol abuse F10.10 Active 36204318 Problem Screening for malignant neoplasm of the cervix V76.2 Active 920828504 Problem Acute upper respiratory infections of unspecified site 465.9 Active 61039461 Problem Unspecified breast screening V76.10 Active 793704511 Problem Acute pharyngitis 462 Active 190027402 Problem Unspecified disorder of menstruation and other abnormal bleeding from female genital tract 626.9 Active 271013385 Problem Unspecified vaginitis and vulvovaginitis 616.10 Active 165324905 Problem Obesity, unspecified 278.00 Active 701439175 Problem Other bipolar disorders F31.89 Active 68209699 Problem Acute sinusitis, unspecified 461.9 Active 46495211 Problem Unspecified personality disorder 301.9 Active 89651580 ALLERGIES No Known Allergies SOCIAL HISTORY Never Assessed PLAN OF CARE Activity Details Follow Up 4 Weeks Reason: VITAL SIGNS MEDICATIONS Medication Instructions Dosage Frequency Start Date End Date Duration Status Trihexyphenidyl HCl 2 MG Orally once a day PRN 1 tablet with meals Jul 30 day(s) Active Latuda 80 MG Orally Once a day 1 tablet 24h 30 days Active Olanzapine 7.5 MG Orally at bedtime 1 tablet 30 days Active Zyprexa 5 mg Orally Once a day 1 tablet at 2 24h 30 days Active Trazodone HCl 100 MG Orally Once a day 1 tablet at bedtime 24h 30 days Active Latuda 40 mg Orally twice a day 1 tablet with food 12h Jul, 30 day(s) Active RESULTS No Results PROCEDURES No Known procedures IMMUNIZATIONS No Known Immunizations MEDICAL (GENERAL) HISTORY Type Description Date Hospitalization History 2 [facility]
--- OUTSIDE RECORDS SUMMARY | 2017-02-04 19:33 | XMS REPORT ---
Author Author SHARON ANDERSON Organization [facility] Address [address] [place] [address] Care Team Providers Care Rehabilitation Technician Name Role Phone MONICA SHARON Unavailable PROBLEMS Type Condition ICD9-CM Code [id number] Code Onset Dates Condition Status SNOMED Code Problem General counseling for prescription of oral contraceptives V25.01 Active 984642804445428 Problem Unspecified contraceptive management V25.9 Active 170310826 Problem DTAP TEST V06.1 Active Problem Routine gynecological examination V72.31 Active 112282461039658 Problem PPV23 (PNEUMOVAX) DX V03.82 Active Problem Contusion of lower leg 924.10 Active 15506016 Problem Urinary frequency 788.41 Active 932096226 Problem Cough 786.2 Active 55856806 Problem Other malaise and fatigue 780.79 Active 958384460 Problem Uncomplicated opioid dependence F11.20 Active 50773415 Problem Fever, unspecified 780.60 Active 551979280 Problem Mood disorder F39 Active 64613147 Problem Other convulsions 780.39 Active 62393121 Problem Unspecified psychosis F29 Active 26215657 Problem Cannabis dependence F12.20 Active 70543260 Problem Other stimulant dependence, 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 Active 364647440 Problem 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 Active 27352888 Problem Personality disorder, unspecified F60.9 Active 17616867 Problem Unspecified backache 724.5 Active 132676004 Problem Other atopic dermatitis and related conditions 691.8 Active 106947549 Problem Pain in joint, ankle and foot 719.47 Active 375975838 Problem Substance abuse F19.10 Active 27961950 Problem Personality disorder F60.9 Active 26240477 Problem Borderline personality disorder F60.3 Active 75655435 Problem Alcohol abuse F10.10 Active 69621499 Problem Screening for malignant neoplasm of the cervix V76.2 Active 937505950 Problem Acute upper respiratory infections of unspecified site 465.9 Active 69553985 Problem Unspecified breast screening V76.10 Active 167249024 Problem Acute pharyngitis 462 Active 719075935 Problem Unspecified disorder of menstruation and other abnormal bleeding from female genital tract 626.9 Active 026134326 Problem Unspecified vaginitis and vulvovaginitis 616.10 Active 652864710 Problem Obesity, unspecified 278.00 Active 183257904 Problem Other bipolar disorders F31.89 Active 57440572 Problem Acute sinusitis, unspecified 461.9 Active 53817416 Problem Unspecified personality disorder 301.9 Active 00786821 ALLERGIES No Information SOCIAL HISTORY Never Assessed PLAN OF CARE Activity Details Follow Up 2 Weeks Reason:mood VITAL SIGNS MEDICATIONS Unknown Medications RESULTS No Results PROCEDURES Procedure Date Ordered Result Body Site Psychotherapy, patient &/family, 30 minutes, established patient Jun 12, 2016 IMMUNIZATIONS No Known Immunizations MEDICAL (GENERAL) HISTORY Type Description Date Hospitalization History 2 [facility] 03/2016
--- OUTSIDE RECORDS SUMMARY | 2017-02-04 19:33 | XMS REPORT ---
Author Author CHARLES HELLER [facility] Address [address] [place] [address] Care Team Providers Care Food And Beverage Operations Manager Name Role Phone CHARLES HELLER Unavailable PROBLEMS Type Condition ICD9-CM Code [id number] Code Onset Dates Condition Status SNOMED Code Problem General counseling for prescription of oral contraceptives V25.01 Active 958157602225887 Problem Unspecified contraceptive management V25.9 Active 483856592 Problem DTAP TEST V06.1 Active Problem Routine gynecological examination V72.31 Active 046850791756636 Problem PPV23 (PNEUMOVAX) DX V03.82 Active Problem Contusion of lower leg 924.10 Active 10740397 Problem Urinary frequency 788.41 Active 949157560 Problem Cough 786.2 Active 90070972 Problem Other malaise and fatigue 780.79 Active 280443122 Problem Uncomplicated opioid dependence F11.20 Active 53167632 Problem Fever, unspecified 780.60 Active 546178074 Problem Mood disorder F39 Active 58390427 Problem Other convulsions 780.39 Active 61206371 Problem Unspecified psychosis F29 Active 11847567 Problem Cannabis dependence F12.20 Active 24056186 Problem Other stimulant dependence, 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 Active 117067081 Problem 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 Active 67695102 Problem Personality disorder, unspecified F60.9 Active 03407869 Problem Unspecified backache 724.5 Active 352287571 Problem Other atopic dermatitis and related conditions 691.8 Active 101914026 Problem Pain in joint, ankle and foot 719.47 Active 811070613 Problem Substance abuse F19.10 Active 25880495 Problem Personality disorder F60.9 Active 64836061 Problem Borderline personality disorder F60.3 Active 10941923 Problem Alcohol abuse F10.10 Active 88789235 Problem Screening for malignant neoplasm of the cervix V76.2 Active 432710432 Problem Acute upper respiratory infections of unspecified site 465.9 Active 21990971 Problem Unspecified breast screening V76.10 Active 276255818 Problem Acute pharyngitis 462 Active 076189413 Problem Unspecified disorder of menstruation and other abnormal bleeding from female genital tract 626.9 Active 509904323 Problem Unspecified vaginitis and vulvovaginitis 616.10 Active 081688374 Problem Obesity, unspecified 278.00 Active 859590252 Problem Other bipolar disorders F31.89 Active 19850946 Problem Acute sinusitis, unspecified 461.9 Active 90026089 Problem Unspecified personality disorder 301.9 Active 69542691 ALLERGIES No Known Allergies SOCIAL HISTORY Never Assessed PLAN OF CARE Activity Details Follow Up 4 Weeks Reason: VITAL SIGNS Height 64 in 2016-06-12 Weight 207.0 lbs 2016-06-12 Heart Rate 100 bpm 2016-06-12 Respiratory Rate 22 2016-06-12 BMI 35.53 kg/m2 2016-06-12 Blood pressure systolic 128 mmHg 2016-06-12 Blood pressure diastolic 86 mmHg 2016-06-12 MEDICATIONS Medication Instructions Dosage Frequency Start Date End Date Duration Status Latuda 80 MG Orally Once a day 1 tablet 24h 30 days Active Trazodone HCl 50 MG Orally Once a day 1 tablet at bedtime 24h 30 days Active Olanzapine 10 mg Orally 2 times a day 1 tablet and take 1/2 tab at 2 pm 12h 30 days Active RESULTS No Results PROCEDURES No Known procedures IMMUNIZATIONS No Known Immunizations MEDICAL (GENERAL) HISTORY Type Description Date Hospitalization History 2 [facility] 03[facility]2016
--- OUTSIDE RECORDS SUMMARY | 2017-02-04 19:34 | XMS REPORT ---
Author Author GENIA PATEL [facility] Address [address] [place] [address] Care Team Providers Care Plant Breeder Name Role Phone GENIA PATEL Unavailable PROBLEMS Type Condition ICD9-CM Code [id number] Code Onset Dates Condition Status SNOMED Code Problem General counseling for prescription of oral contraceptives V25.01 Active 829651166923147 Problem Unspecified contraceptive management V25.9 Active 277513892 Problem DTAP TEST V06.1 Active Problem Routine gynecological examination V72.31 Active 186166959086362 Problem PPV23 (PNEUMOVAX) DX V03.82 Active Problem Contusion of lower leg 924.10 Active 57131330 Problem Urinary frequency 788.41 Active 686737405 Problem Cough 786.2 Active 06682468 Problem Other malaise and fatigue 780.79 Active 710333787 Problem Uncomplicated opioid dependence F11.20 Active 25578994 Problem Fever, unspecified 780.60 Active 458807190 Problem Mood disorder F39 Active 70041388 Problem Other convulsions 780.39 Active 80234424 Problem Unspecified psychosis F29 Active 00502511 Problem Cannabis dependence F12.20 Active 83467379 Problem Other stimulant dependence, 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 Active 774123416 Problem 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 Active 51688748 Problem Personality disorder, unspecified F60.9 Active 98354289 Problem Unspecified backache 724.5 Active 096810627 Problem Other atopic dermatitis and related conditions 691.8 Active 558435245 Problem Pain in joint, ankle and foot 719.47 Active 311802800 Problem Substance abuse F19.10 Active 94380054 Problem Personality disorder F60.9 Active 42937906 Problem Borderline personality disorder F60.3 Active 24507068 Problem Alcohol abuse F10.10 Active 77215948 Problem Screening for malignant neoplasm of the cervix V76.2 Active 207347495 Problem Acute upper respiratory infections of unspecified site 465.9 Active 51557177 Problem Unspecified breast screening V76.10 Active 581323790 Problem Acute pharyngitis 462 Active 654429066 Problem Unspecified disorder of menstruation and other abnormal bleeding from female genital tract 626.9 Active 708325525 Problem Unspecified vaginitis and vulvovaginitis 616.10 Active 689979839 Problem Obesity, unspecified 278.00 Active 865003561 Problem Other bipolar disorders F31.89 Active 36389699 Problem Acute sinusitis, unspecified 461.9 Active 35251832 Problem Unspecified personality disorder 301.9 Active 78359809 ALLERGIES Unknown Allergies SOCIAL HISTORY No smoking Hx information available PLAN OF CARE VITAL SIGNS MEDICATIONS Unknown Medications RESULTS No Results PROCEDURES No Known procedures IMMUNIZATIONS No Known Immunizations
--- OUTSIDE RECORDS SUMMARY | 2017-02-04 19:34 | XMS REPORT ---
Author Author SAJI STREETER Organization [facility] Address [address] [place] [address] Care Team Providers Care Green Chain Worker Name Role Phone SYL SAJI Unavailable PROBLEMS Type Condition ICD9-CM Code [id number] Code Onset Dates Condition Status SNOMED Code Problem General counseling for prescription of oral contraceptives V25.01 Active 176952532329676 Problem Unspecified contraceptive management V25.9 Active 263772506 Problem DTAP TEST V06.1 Active Problem Routine gynecological examination V72.31 Active 578031075444037 Problem PPV23 (PNEUMOVAX) DX V03.82 Active Problem Contusion of lower leg 924.10 Active 80393642 Problem Urinary frequency 788.41 Active 443124230 Problem Cough 786.2 Active 82506327 Problem Other malaise and fatigue 780.79 Active 444620940 Problem Uncomplicated opioid dependence F11.20 Active 05935957 Problem Fever, unspecified 780.60 Active 535106387 Problem Mood disorder F39 Active 97280188 Problem Other convulsions 780.39 Active 47659278 Problem Unspecified psychosis F29 Active 55016831 Problem Cannabis dependence F12.20 Active 01007320 Problem Other stimulant dependence, 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 Active 814510589 Problem 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 Active 22164358 Problem Personality disorder, unspecified F60.9 Active 60410547 Problem Unspecified backache 724.5 Active 606428346 Problem Other atopic dermatitis and related conditions 691.8 Active 532765344 Problem Pain in joint, ankle and foot 719.47 Active 883436788 Problem Substance abuse F19.10 Active 28164171 Problem Personality disorder F60.9 Active 95109572 Problem Borderline personality disorder F60.3 Active 34382228 Problem Alcohol abuse F10.10 Active 95092736 Problem Screening for malignant neoplasm of the cervix V76.2 Active 934693217 Problem Acute upper respiratory infections of unspecified site 465.9 Active 17817920 Problem Unspecified breast screening V76.10 Active 552358205 Problem Acute pharyngitis 462 Active 395872935 Problem Unspecified disorder of menstruation and other abnormal bleeding from female genital tract 626.9 Active 801159403 Problem Unspecified vaginitis and vulvovaginitis 616.10 Active 351571214 Problem Obesity, unspecified 278.00 Active 620759849 Problem Other bipolar disorders F31.89 Active 80789451 Problem Acute sinusitis, unspecified 461.9 Active 56890182 Problem Unspecified personality disorder 301.9 Active 31693167 ALLERGIES No Information SOCIAL HISTORY Never Assessed PLAN OF CARE Activity Details Follow Up 1 Week Reason: VITAL SIGNS MEDICATIONS Unknown Medications RESULTS No Results PROCEDURES Procedure Date Ordered Result Body Site Alcohol and/or drug services Jun 12, 2016 IMMUNIZATIONS No Known Immunizations MEDICAL (GENERAL) HISTORY Type Description Date Hospitalization History 2 [facility]
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
[2017-02-04] MEDS ORDERED: NS IV 1000 ML 1,000 ML IV SCH (19:45)
[2017-02-04 20:01] LABS: BASOPHILS % (AUTO) 0 % (0-10); EOSINOPHILS # (AUTO) 0.7 10^3/uL (0.0-0.3); EOSINOPHILS % (AUTO) 5 % (0-10); LYMPHOCYTES % (AUTO) 20 % (12-44); MEAN CORPUSCULAR HEMOGLOBIN 29 PG (25-34); MEAN CORPUSCULAR HGB CONC 34 G/DL (32-36); MEAN CORPUSCULAR VOLUME 86 FL (80-99); MEAN PLATELET VOLUME 10.5 FL (7.4-10.4); MONOCYTES # (AUTO) 1.3 X 10^3 (0.0-1.0); MONOCYTES % (AUTO) 9 % (0-12); NEUTROPHILS # (AUTO) 9.6 X 10^3 (1.8-7.8); NEUTROPHILS % (AUTO) 66 % (42-75); PLATELET COUNT 372 10^3/uL (130-400); RED BLOOD COUNT 4.85 10^6/uL (4.35-5.85); RED CELL DISTRIBUTION WIDTH 14.7 % (10.0-14.5); WHITE BLOOD COUNT 14.6 10^3/uL (4.3-11.0)
[2017-02-04 20:16] LABS: BILIRUBIN,URINE NEGATIVE (NEGATIVE); KETONES,URINE 1+ (NEGATIVE); LEUKOCYTE ESTERASE ,URINE 2+ (NEGATIVE); NITRITE,URINE NEGATIVE (NEGATIVE); PH,URINE 7 (5-9); PROTEIN,URINE 2+ (NEGATIVE); UROBILINOGEN,URINE NORMAL (NORMAL)
[2017-02-04 20:21] LABS: ALANINE AMINOTRANSFERASE 21 U/L (0-55); ALBUMIN 3.8 GM/DL (3.2-4.5); ANION GAP 9 MMOL/L (5-14); ASPARTATE AMINO TRANSFERASE 16 U/L (5-34); BAND NEUTROPHILS 2 %; BASOPHILS % (MANUAL) 0 %; BILIRUBIN,TOTAL 0.3 MG/DL (0.1-1.0); BLOOD UREA NITROGEN 7 MG/DL (7-18); BUN/CREATININE RATIO 10; CALCIUM 8.8 MG/DL (8.5-10.1); CARBON DIOXIDE 27 MMOL/L (21-32); CHLORIDE 106 MMOL/L (98-107); CREATININE SERUM 0.68 MG/DL (0.60-1.30); EOSINOPHILS % (MANUAL) 6 %; GFR ESTIMATED > 60; GLUCOSE 120 MG/DL (70-105); LYMPHOCYTES % (MANUAL) 26 %; NEUTROPHILS % (MANUAL) 58 %; SODIUM 142 MMOL/L (135-145)
[2017-02-04] MEDS ORDERED: RX-AMOX/CLAV. (AUGMENTIN) 500MG TAB PPK#2 PO STA (20:29)
[2017-02-04] MEDS ORDERED: cefTRIAXone INJECTION 1,000 MG in NS (IVPB) 50 ML IV ONE (20:30)
[2017-02-04] MEDS ORDERED: CEPH500T PO (20:32)
[2017-02-04 20:45] VITALS: BP 134/87
[2017-02-04] MEDS ORDERED: CEPHALEXIN 250 MG (KEFLEX) CAP PO ONE (21:00)
[2017-02-04] MEDS ORDERED: MUPIROCIN 2% OINT 22 GM (BACTROBAN) TUBE TOP SCH (21:00)
[2017-02-08 15:38] LABS: CHLAMYDIA DNA PROBE PT Not Detected (Not Detected); NEISSERIA GONORRHEA DNA Not Detected (Not Detected)
== END 2017-02-04 20:44 | disposition home or self-care (01) ==
LOC: EDUNIT# 19:13 → ER 19:14
DX: L03.116 Cellulitis of left lower limb (principal); F41.9 Anxiety disorder, unspecified; F31.9 Bipolar disorder, unspecified; F20.9 Schizophrenia, unspecified; F12.10 Cannabis abuse, uncomplicated; F15.10 Other stimulant abuse, uncomplicated; F14.10 Cocaine abuse, uncomplicated; F17.210 Nicotine dependence, cigarettes, uncomplicated; Z87.59 Personal history of other complications of pregnancy, childbirth and the puerperium; Z90.49 Acquired absence of other specified parts of digestive tract; Z91.5 Personal history of self-harm
CPT/HCPCS: 36415; 80053; 80306; 81000; 85007; 85027; 87070; 87088; 87205; 87491; 87591; 96361; 96374

== ENCOUNTER 2017-02-06 00:41 | Emergency (ER) | payer MEDICARE, MEDICAID ==
[~2017-02-06] VITALS: Ht 162.6 cm; Wt 108.9 kg
[~2017-02-06 00:41] MED LIST changes: +CEPH500T PO; +DIVA500T7; +HYDR-700; +OLAN10TA19
--- OUTSIDE RECORDS SUMMARY | 2017-02-06 00:54 | XMS REPORT | Clinical Summary ---
Author Author [facility] Organization [facility] Address Unknown Phone Unavailable Care Team Providers Care Truck Engine Technician Name Role Phone PCP Unavailable Source Comments Some departments are not documenting in the electronic medical record. If you do not see the information that you expected, contact Release of Information in the Health Information Management department at [phone] for further assistance in locating additional records.[facility] Allergies Active Allergy Reactions Severity Noted Date [...] Taken Blood Pressure 151/96 03/10/2016 10:09 PM AGILITY INSTRUCTOR Pulse 101 02/08/2015 2:31 AM CDT Temperature 36.3 C (97.3 F) 03/10/2016 10:09 PM AGILITY INSTRUCTOR Respiratory Rate - - Oxygen Saturation 96% 03/10/2016 10:09 PM AGILITY INSTRUCTOR Inhaled Oxygen - - Concentration Weight 72.8 kg (160 lb 7.9 oz) 03/10/2016 10:09 PM AGILITY INSTRUCTOR Height 162.6 cm (5' 4") 03/10/2016 10:09 PM AGILITY INSTRUCTOR Body Mass Index 27.55 03/10/2016 10:09 PM AGILITY INSTRUCTOR Plan of Treatment Health Maintenance Due Date Last Done Comments PHYSICAL (COMPREHENSIVE) 1992 EXAM PERTUSSIS VACCINE 1996 TETANUS VACCINE 2002 CERVICAL CANCER SCREENING 2015 INFLUENZA VACCINE 01/31/2017 Results Not on filefrom Last 3 Months
[2017-02-06] MEDS ORDERED: RX-MUPIROCIN (BACTROBAN) 2% OINT 22 GM TUBE TOP STA (01:31)
[2017-02-06] MEDS ORDERED: CEPHALEXIN 250 MG (KEFLEX) CAP PO STA (01:31)
[2017-02-06] MEDS ORDERED: RX-CEPHALEXIN (KEFLEX) 250 MG CAP PPK#4 PO STA (01:31)
[2017-02-06 01:33] VITALS: BP 147/86
--- NOTE | 2017-02-06 01:39 | ED Integumentary General ---
General Chief Complaint: Skin/Wound Problems Stated Complaint: ABRASIONS ON LEGS DRAINING & SWOLLEN Nursing Triage Note: patient reports wound on L inner thigh, patient reports was treated here a few days prior for same and wasn't able to get antibiotics filled Source: patient Exam Limitations: no limitations History of Present Illness Time seen by provider: 01:21 Initial Comments Here with report of bilateral thigh pain where she has wounds. She only owns 1 pair of jeans and the jeans have holes in the thigh area. Her skin is rubbing together when she is walking and she has wounds that are actually draining. She was seen for this a few days ago and prescribed antibiotics. States that she could not fill the antibiotics because of cost. She did use the cream for a little bit. She did take the medications that were given to her here. States that she can't change her pants because she doesn't own any more. Denies other concerns currently. Timing/Duration: getting worse Severity: moderate Location: extremities Associated Symptoms: change in skin texture, edema, rash Allergies and Home Medications Allergies Coded Allergies: buspirone (Verified Allergy, Severe, HIVES, 09/07/13) risperidone (Verified Allergy, Intermediate, RASH, 09/07/13) erythromycin base (Verified Allergy, Unknown, 09/07/13) Home Medications Cephalexin 500 Mg Tablet, 500 MG PO QID, #28 Prescribed by: JOAQUIM REES on 02/04/172031 Divalproex Sodium 500 Mg Tablet., (Reported) Hydroxyzine HCl 25 Mg Tablet, (Reported) Olanzapine 10 Mg Tablet, (Reported) Constitutional: see HPI, No chills, No fever Respiratory: no symptoms reported Cardiovascular: no symptoms reported Musculoskeletal: no symptoms reported Skin: see HPI, change in color, lesions Psychiatric/Neurological: No Symptoms Reported Past Zigvddx-Dueorg-Dzqeuf Hx Patient Social History Alcohol Use: Denies Use Number of Drinks Today: FF Alcohol Beverage of Choice: Vodka Recreational Drug Use: No Drug of Choice: MARIJUANA, METH, COCAINE Smoking Status: Current Everyday Smoker Type Used: Cigarettes 2nd Hand Smoke Exposure: No Recent Foreign Travel: No Contact w/Someone Who Travel: No Recent Infectious Disease Expo: No Recent Hopitalizations: No Immunizations Up To Date Tetanus Booster (TDap): Less than 5yrs PED Vaccines UTD: Yes Seasonal Allergies Seasonal Allergies: No Surgeries History of Surgeries: Yes (R HAND CARPAL TUNNEL; X 1 ) Surgeries: Appendectomy, Section, Orthopedic, Tonsillectomy Respiratory History of Respiratory Disorde: No Cardiovascular History of Cardiac Disorders: No Neurological History of Neurological Disord: No Reproductive System Hx Reproductive Disorders: No Sexually Transmitted Disease: No Female Reproductive Disorders: Denies, Ovarian Cyst Genitourinary History of Genitourinary Disor: No Gastrointestinal History of Gastrointestinal Di: No Musculoskeletal History of Musculoskeletal Dis: No Endocrine History of Endocrine Disorders: No HEENT History of HEENT Disorders: No Cancer History of Cancer: No Psychosocial History of Psychiatric Problem: Yes Behavioral Health Disorders: Anxiety, Suicide Attempts, Bipolar, Schizophrenia , Depression Integumentary History of Skin or Integumenta: No Blood Transfusions History of Blood Disorders: No Reviewed Nursing Assessment Reviewed/Agree w Nursing PMH: Yes Family Medical History Significant Family History: No Pertinent Family Hx Family Medial History: Patient reports no known family medical history. Physical Exam Vital Signs Vital Sign - Last 12Hours 02/06/17 01:27 Temp 98.2 Pulse 112 Resp 18 B/P (MAP) 147/86 Pulse Ox 98 Capillary Refill : Less Than 3 Seconds General Appearance: WD/WN, no apparent distress Cardiovascular: regular rate, rhythm, no murmur Respiratory: lungs clear, normal breath sounds Gastrointestinal: non tender, soft Extremities: other (erythema and wounds to bilateral thighs where they rub together.) Neurologic/Psychiatric: alert, oriented x 3 Skin: other (erythema surrounding wounds to bilateral inner thighs. Wounds approximately 5 x 15 cm with weeping.) Progress/Results/Core Measures Results/Orders My Orders Orders - SHAN BYRD MD Cephalexin Capsule (Keflex Capsule) (02/06/17 01:31) Rx-Mupirocin 2% Oint (Rx-Bactroban) (02/06/17 01:31) Rx-Cephalexin Capsule (Rx-Keflex Capsule (02/06/17 01:31) Vital Signs/I&O Vital Sign - Last 12Hours 02/06/17 01:27 Temp 98.2 Pulse 112 Resp 18 B/P (MAP) 147/86 Pulse Ox 98 Blood Pressure Mean: 106 Progress Note : Progress Note Seen and evaluated. Mupirocin ointment to wound's bilaterally. Covered with dressing to protect wound from rubbing together. Keflex 500 mg by mouth given. Keflex go pack given. Patient instructed to follow-up at [facility] today for recheck and further evaluation. States that she is unable to get medications but was informed to follow-up with [facility] to seek medication assistance. Discharged home with return precautions. Patient verbalize understanding instructions and agreement with plan. Departure Impression Impression: Primary Impression: Abrasion Additional Impression: Cellulitis Qualified Codes: L03.119 - Cellulitis of unspecified part of limb Disposition: HOME, SELF-CARE Condition: Stable Departure-Patient Inst. Decision time for Depature: 01:39 Referrals: ANYA WYNN MD (PCP/Family) Primary Care Physician Patient Instructions: Cellulitis (Skin Infection), Child (DC) Add. Discharge Instructions: All discharge instructions reviewed with patient and/or family. Voiced understanding. Take medications as directed. Follow up with [facility] today at the walk-in clinic. Take prescription with you to see if they can assist with medication. It is important to fill the prescription. You need to protect your wounds from rubbing together as this is making them worse. Use dressings to cover wounds and replace dressings twice daily. Keep wounds clean. Return for worse pain, swelling, fever, rigor problems or other concerns as needed. Scripts Cephalexin (Cephalexin) 500 Mg Tablet 500 MG PO QID, #28 TAB 0 Refills Prov: SHAN BYRD MD 02/06/17 Copy Copies To 1: ANYA WYNN MD, TIMOTHY D MD Feb 06, 2017 01:39
[2017-02-06] MEDS ORDERED: CEPH500T PO (01:42)
[2017-02-06 01:58] VITALS: BP 147/86
== END 2017-02-06 01:51 | disposition home or self-care (01) ==
LOC: EDUNIT# 00:41 → ER 00:46
DX: S70.312A Abrasion, left thigh, initial encounter (principal); L03.116 Cellulitis of left lower limb; F41.9 Anxiety disorder, unspecified; F31.9 Bipolar disorder, unspecified; F20.9 Schizophrenia, unspecified; F12.10 Cannabis abuse, uncomplicated; F15.10 Other stimulant abuse, uncomplicated; F14.10 Cocaine abuse, uncomplicated; F17.210 Nicotine dependence, cigarettes, uncomplicated; Z90.49 Acquired absence of other specified parts of digestive tract; Z90.89 Acquired absence of other organs; Z87.59 Personal history of other complications of pregnancy, childbirth and the puerperium; Z91.5 Personal history of self-harm; X58.XXXA Exposure to other specified factors, initial encounter

== ENCOUNTER 2017-02-16 03:23 | Emergency (ER) | payer MEDICARE, MEDICAID ==
[~2017-02-16] VITALS: Ht 167.6 cm; Wt 108.9 kg
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
[2017-02-16] MEDS ORDERED: ONDANSETRON 4 MG (ZOFRAN) ORAL DISSOLVE TAB PO ONE (03:45)
[2017-02-16 04:01] LABS: BILIRUBIN,URINE NEGATIVE (NEGATIVE); KETONES,URINE NEGATIVE (NEGATIVE); LEUKOCYTE ESTERASE ,URINE NEGATIVE (NEGATIVE); NITRITE,URINE NEGATIVE (NEGATIVE); PH,URINE 7 (5-9); PROTEIN,URINE NEGATIVE (NEGATIVE); UROBILINOGEN,URINE NORMAL (NORMAL)
[2017-02-16 04:08] LABS: BASOPHILS # (AUTO) 0.1 10^3/uL (0.0-0.1); BASOPHILS % (AUTO) 0 % (0-10); EOSINOPHILS # (AUTO) 0.5 10^3/uL (0.0-0.3); EOSINOPHILS % (AUTO) 4 % (0-10); LYMPHOCYTES # (AUTO) 4.1 X 10^3 (1.0-4.0); LYMPHOCYTES % (AUTO) 34 % (12-44); MEAN CORPUSCULAR HEMOGLOBIN 29 PG (25-34); MEAN CORPUSCULAR HGB CONC 34 G/DL (32-36); MEAN CORPUSCULAR VOLUME 86 FL (80-99); MEAN PLATELET VOLUME 9.9 FL (7.4-10.4); MONOCYTES % (AUTO) 8 % (0-12); NEUTROPHILS # (AUTO) 6.6 X 10^3 (1.8-7.8); NEUTROPHILS % (AUTO) 54 % (42-75); PLATELET COUNT 455 10^3/uL (130-400); RED BLOOD COUNT 5.02 10^6/uL (4.35-5.85); RED CELL DISTRIBUTION WIDTH 15.6 % (10.0-14.5); WHITE BLOOD COUNT 12.3 10^3/uL (4.3-11.0)
[2017-02-16 04:08] LABS: SQUAMOUS EPITHELIAL CELL,UR 0-2 /HPF
[2017-02-16 04:26] LABS: ALANINE AMINOTRANSFERASE 28 U/L (0-55); ALBUMIN 4.1 GM/DL (3.2-4.5); ANION GAP 15 MMOL/L (5-14); ASPARTATE AMINO TRANSFERASE 29 U/L (5-34); BILIRUBIN,TOTAL 0.2 MG/DL (0.1-1.0); BLOOD UREA NITROGEN 13 MG/DL (7-18); BUN/CREATININE RATIO 19; CALCIUM 8.9 MG/DL (8.5-10.1); CARBON DIOXIDE 26 MMOL/L (21-32); CHLORIDE 97 MMOL/L (98-107); GFR ESTIMATED > 60; GLUCOSE 120 MG/DL (70-105); POTASSIUM 4.3 MMOL/L (3.6-5.0); SODIUM 138 MMOL/L (135-145); TOTAL PROTEIN 7.7 GM/DL (6.4-8.2)
[2017-02-16 04:40] VITALS: BP 138/92
--- OUTSIDE RECORDS SUMMARY | 2017-02-16 07:08 | XMS REPORT | Clinical Summary ---
Author Author [facility] Organization [facility] Address Unknown Phone Unavailable Care Team Providers Care Property Worker Name Role Phone PCP Unavailable Source Comments Some departments are not documenting in the electronic medical record. If you do not see the information that you expected, contact Release of Information in the Health Information Management department at [phone] for further assistance in locating additional records.[facility] Allergies Active Allergy Reactions Severity Noted Date [...] Taken Blood Pressure 151/96 03/10/2016 10:09 PM BLOCKER AND POLISHER GOLD WHEEL Pulse 101 02/08/2015 2:31 AM CDT Temperature 36.3 C (97.3 F) 03/10/2016 10:09 PM BLOCKER AND POLISHER GOLD WHEEL Respiratory Rate - - Oxygen Saturation 96% 03/10/2016 10:09 PM BLOCKER AND POLISHER GOLD WHEEL Inhaled Oxygen - - Concentration Weight 72.8 kg (160 lb 7.9 oz) 03/10/2016 10:09 PM BLOCKER AND POLISHER GOLD WHEEL Height 162.6 cm (5' 4") 03/10/2016 10:09 PM BLOCKER AND POLISHER GOLD WHEEL Body Mass Index 27.55 03/10/2016 10:09 PM BLOCKER AND POLISHER GOLD WHEEL Plan of Treatment Health Maintenance Due Date Last Done Comments PHYSICAL (COMPREHENSIVE) 1992 EXAM PERTUSSIS VACCINE 1996 TETANUS VACCINE 2002 CERVICAL CANCER SCREENING 2015 INFLUENZA VACCINE 12/01/2016 Results Not on filefrom Last 3 Months
--- OUTSIDE RECORDS SUMMARY | 2017-02-16 07:09 | XMS REPORT ---
Author Author [facility]JI [facility]RE[facility] Address [address] [place] [address] Care Team Providers Care Shirt Closer Name Role Phone SAJI STREETER Unavailable PROBLEMS Type Condition ICD9-CM Code [id number] Code Onset Dates Condition Status SNOMED Code Problem General counseling for prescription of oral contraceptives V25.01 Active 378038790160390 Problem Unspecified contraceptive management V25.9 Active 964374979 Problem DTAP TEST V06.1 Active Problem Routine gynecological examination V72.31 Active 367866877532132 Problem PPV23 (PNEUMOVAX) DX V03.82 Active Problem Contusion of lower leg 924.10 Active 33710201 Problem Urinary frequency 788.41 Active 253991553 Problem Cough 786.2 Active 60332475 Problem Other malaise and fatigue 780.79 Active 295954626 Problem Uncomplicated opioid dependence F11.20 Active 44874424 Problem Fever, unspecified 780.60 Active 516343938 Problem Mood disorder F39 Active 13025359 Problem Other convulsions 780.39 Active 17752913 Problem Unspecified psychosis F29 Active 06604837 Problem Cannabis dependence F12.20 Active 12269076 Problem Other stimulant dependence, 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 Active 377994449 Problem 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 Active 29949596 Problem Personality disorder, unspecified F60.9 Active 68421836 Problem Unspecified backache 724.5 Active 463768590 Problem Other atopic dermatitis and related conditions 691.8 Active 290004439 Problem Pain in joint, ankle and foot 719.47 Active 062115178 Problem Substance abuse F19.10 Active 61251162 Problem Personality disorder F60.9 Active 73172179 Problem Borderline personality disorder F60.3 Active 82405578 Problem Alcohol abuse F10.10 Active 65186202 Problem Screening for malignant neoplasm of the cervix V76.2 Active 697307363 Problem Acute upper respiratory infections of unspecified site 465.9 Active 45283320 Problem Unspecified breast screening V76.10 Active 155726675 Problem Acute pharyngitis 462 Active 817838935 Problem Unspecified disorder of menstruation and other abnormal bleeding from female genital tract 626.9 Active 078133159 Problem Unspecified vaginitis and vulvovaginitis 616.10 Active 741444236 Problem Obesity, unspecified 278.00 Active 365326369 Problem Other bipolar disorders F31.89 Active 85717166 Problem Acute sinusitis, unspecified 461.9 Active 65429278 Problem Unspecified personality disorder 301.9 Active 66884234 ALLERGIES No Information SOCIAL HISTORY Never Assessed PLAN OF CARE Activity Details Follow Up 1 Week Reason: VITAL SIGNS MEDICATIONS Unknown Medications RESULTS No Results PROCEDURES Procedure Date Ordered Result Body Site Alcohol and/or drug services July 13, 2016 IMMUNIZATIONS No Known Immunizations MEDICAL (GENERAL) HISTORY Type Description Date Hospitalization History [facility] 03/2016
== END 2017-02-16 04:40 | disposition home or self-care (01) ==
LOC: EDUNIT# 03:27 → ER 03:28
DX: F20.0 Paranoid schizophrenia (principal); F17.210 Nicotine dependence, cigarettes, uncomplicated; F41.9 Anxiety disorder, unspecified
CPT/HCPCS: 36415; 80053; 80306; 81000; 85025; 99283

== ENCOUNTER 2017-02-22 00:31 | Emergency (ER) | payer MEDICARE, MEDICAID ==
[~2017-02-22] VITALS: Ht 167.6 cm; Wt 108.9 kg
--- OUTSIDE RECORDS SUMMARY | 2017-02-22 00:41 | XMS REPORT | Clinical Summary ---
Author Author [facility] Organization [facility] Address Unknown Phone Unavailable Care Team Providers Care Lens Grinder And Polisher Name Role Phone PCP Unavailable Source Comments Some departments are not documenting in the electronic medical record. If you do not see the information that you expected, contact Release of Information in the Health Information Management department at [phone] for further assistance in locating additional records.[facility] Allergies Active Allergy Reactions Severity [...] Taken Blood Pressure 151/96 03/10/2016 10:09 PM SEED CLEANING MACHINE OPERATOR Pulse 101 02/08/2015 2:31 AM CDT Temperature 36.3 C (97.3 F) 03/10/2016 10:09 PM SEED CLEANING MACHINE OPERATOR Respiratory Rate - - Oxygen Saturation 96% 03/10/2016 10:09 PM SEED CLEANING MACHINE OPERATOR Inhaled Oxygen - - Concentration Weight 72.8 kg (160 lb 7.9 oz) 03/10/2016 10:09 PM SEED CLEANING MACHINE OPERATOR Height 162.6 cm (5' 4") 03/10/2016 10:09 PM SEED CLEANING MACHINE OPERATOR Body Mass Index 27.55 03/10/2016 10:09 PM SEED CLEANING MACHINE OPERATOR Plan of Treatment Health Maintenance Due Date Last Done Comments PHYSICAL (COMPREHENSIVE) 1992 EXAM PERTUSSIS VACCINE 1996 TETANUS VACCINE 2002 CERVICAL CANCER SCREENING 2015 INFLUENZA VACCINE 12/01/2016 Results Not on filefrom Last 3 Months
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
[2017-02-22 01:33] VITALS: BP 128/98
== END 2017-02-22 01:33 | disposition home or self-care (01) ==
LOC: EDUNIT# 00:31 → ER 00:33
DX: R25.8 Other abnormal involuntary movements (principal); F10.10 Alcohol abuse, uncomplicated; F41.9 Anxiety disorder, unspecified; F20.9 Schizophrenia, unspecified; F31.9 Bipolar disorder, unspecified; Z91.5 Personal history of self-harm; Z90.49 Acquired absence of other specified parts of digestive tract; Z87.59 Personal history of other complications of pregnancy, childbirth and the puerperium; Z90.89 Acquired absence of other organs
CPT/HCPCS: 99281